=== PATIENT | female | born 1935 | race Caucasian/White ===

== ENCOUNTER 2016-03-29 01:52 | Inpatient (IN) | payer OTHER, MEDICARE ==
[~2016-03-29] VITALS: Ht 162.6 cm; Wt 68.0 kg
[~2016-03-29 01:52] MED LIST: ASPIR 8181 MG PO; ATORVASTATIN CA40 MG PO; CEFUROXIME AXE250 MG PO; LISINOPRIL10 MG PO; MAGNESIUM OXID400 MG PO; METOPROLOL TART50 MG PO; PREDNISONE 20MG20 MG PO; PROCHLORPERAZIN10 M1 PO; SPIRIVA 18 MCG18 MCG INH; SYMBICORT 160/41 PUF INH
--- NOTE | 2016-03-29 02:06 | NUR ---
PT BIBA FROM HOME. PER EMS PT HAS C/O HEADACHE, N/V/D FOR PAST 3 DAYS. 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
--- NOTE | 2016-03-29 02:07 | NUR ---
PT C/O DIZZINESS, WEAKNESS AND SLEEPING FOR 7 DAYS STRAIGHT. PT REPORTS NAUSEA SUBSIDING AFTER BEING MEDICATED. PT DENIES A HEADACHE AT THIS TIME. PT A/0 X4. RESP UNLABORED WITH BASELINE SOB. 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 PT DENIES CP, FEVER AND CHILLS.
--- NOTE | 2016-03-29 02:59 | ED AMS/SEIZURE/WEAK/DIZZY ---
History of Present Illness General Chief Complaint: Headache Stated Complaint: H/A Source: patient, family, old records, EMS Exam Limitations: no limitations Vital Signs & Intake/Output Vital Signs & Intake/Output Vital Signs Date Time Temp Pulse Resp B/P Pulse O2 O2 Flow FiO2 Ox Delivery Rate 03/29 0420 96.0 89 18 116/56 100 Nasal 4.0L Cannula 03/29 0201 96.5 93 20 183/99 95 Nasal 4.0L Cannula Allergies Coded Allergies: ciprofloxacin (From Cipro) (DIZZY 03/29/16) levofloxacin (SOB, TIGHTNESS IN CHEST 03/29/16) Reconcile Medications Aspirin (Ecotrin) 81 MG TABLET.DR 1 TAB PO DAILY HEART HEALTH (Reported) Atorvastatin Calcium (Lipitor) 40 MG TABLET 1 TAB PO QPM CHOLESTEROL ( Reported) Budesonide/Formoterol Fumara (Symbicort 160-4.5 Mcg Inhaler) 160 MCG/4.5 MCG PUF 2 PUF INH BID LUNGS Magnesium Oxide 400 MG TAB 1 TAB PO DAILY SUPPLEMENT Prednisone 20 MG TAB 1 TAB PO DAILY PNEUMONIA Prochlorperazine Maleate (Unknown Strength) TAB 10 MG PO Q6P PRN NAUSEA ( Reported) Tiotropium [place] (Spiriva) 18 MCG CAP.W.DEV 1 CAP INH DAILY EMPHYSEMA ( Reported) Core Measure Meds Pre-Hospital aspirin Triage Note: PT BIBA FROM HOME. PER EMS PT HAS C/O HEADACHE, N/V/D FOR PAST 3 DAYS. 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 Triage Nurses Notes Reviewed? yes Onset: yesterday Duration: day(s):, constant, continues in ED, getting worse Timing: recent history Injury Environment: home Severity: severe Modifying Factors: Improves With: rest. Worsens With: movement. LMP (ages 10-50): post menopausal : No Patient currently breastfeeds: No HPI: She is currently undergoing chemotherapy at [facility] for metastatic lung cancer. 1 week prior to admission patient was having focal seizures Vimpat dosage doubled and keppra increased. With the resolution of focal seizures. 1 day prior to admission patient reports increasing dizziness blurry vision weakness. There is no fever chills nausea vomiting diarrhea chest pain cough shortness of breath headache dysuria rash bleeding. Past History Travel History Traveled to [place] past 21 day No Medical History Any Pertinent Medical History? 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 No Review of Systems Review of Systems Constitutional: Reports: no symptoms. EENTM: Reports: see HPI, blurred vision. Respiratory: Reports: no symptoms. Cardiovascular: Reports: no symptoms. GI: Reports: no symptoms. Genitourinary: Reports: no symptoms. Musculoskeletal: Reports: no symptoms. Skin: Reports: no symptoms. Neurological/Psychological: Reports: see HPI. Hematologic/Endocrine: Reports: no symptoms. Immunologic/Allergic: Reports: no symptoms. All Other Systems: Reviewed and Negative Physical Exam Physical Exam General Appearance: well developed/nourished, alert, awake, anxious, severe distress, obese Head: atraumatic, normal appearance Eyes: Bilateral: normal appearance, PERRL, other (nystagmus). Ears, Nose, Throat: normal pharynx, normal ENT inspection Neck: normal inspection, supple, full range of motion, no midline tenderness Respiratory: chest non-tender, no respiratory distress, quiet respiration, lungs clear, decreased breath sounds Cardiovascular: regular rate/rhythm, normal peripheral pulses, norml femoral pulses equa Peripheral Pulses: 4+ carotid (R), 4+ carotid (L) Gastrointestinal: normal bowel sounds, soft, non-tender, no organomegaly Back: normal inspection, normal range of motion Extremities: normal range of motion, no ligament instability Neurologic/Psych: no motor/sensory deficits, awake, alert, oriented x 3 Reflexes: 2+: bicep (R), bicep (L). Skin: intact, normal color Lymphatic: no anterior cervical rich Core Measures ACS in differential dx? Yes CVA/TIA Diagnosis: No Severe Sepsis Present: No Septic Shock Present: No Progress Differential Diagnosis: benign positional vertigo, CVA/stroke, drug intoxication , electrolyte imbalance, hypoglycemia, hypoxia, seizure disorder, subarachnoid Hem. Plan of Care: Orders Procedure Date/time Status Regular Diet 03/29 B Active Patient Data 03/29 451 Active OXYGEN SETUP (GEN) 03/29 438 Active Saline Lock 03/29 438 Active Admit to inpatient 03/29 438 Active Vital Signs 03/29 438 Active Activity/Ambulation 03/29 438 Active Code Status 03/29 438 Active Intake & Output 03/29 356 Active EKG 03/29 355 Active TROPONIN LEVEL 03/29 227 Complete MAGNESIUM 03/29 227 Complete COMPREHENSIVE METABOLIC PANEL 03/29 227 Complete CBC WITHOUT DIFFERENTIAL 03/29 227 Complete Laboratory Tests 03/29/16 0315: Anion Gap 5, Estimated GFR > 60, BUN/Creatinine Ratio 58.0 H, Glucose 149 H, Calcium 8.3 L, Magnesium 1.2 L, Total Bilirubin 0.9, AST 45 H, ALT 37, Alkaline Phosphatase 96, Troponin I 0.17 *H, Total Protein 6.0 L, Albumin 3.1 L, Globulin 2.9, Albumin/Globulin Ratio 1.1, CBC w Diff NO MAN DIFF REQ, RBC 3.06 L, MCV 95.8, MCH 30.8, RDW 21.1 H, MPV 8.2, Gran % 85.1 H, Lymphocytes % 4.4 L, Monocytes % 10.3 H, Eosinophils % 0.1, Basophils % 0.1, Absolute Granulocytes 6.7 H, Absolute Lymphocytes 0.3 L, Absolute Monocytes 0.8 H, Absolute Eosinophils 0, Absolute Basophils 0, PUBS MCHC 32.2 L Diagnostic Imaging: Viewed by Me: CT Scan. Discussed w/RAD: CT Scan. Radiology Impression: Hypoattenuation in the high left frontal lobe at the location of the prior metastatic lesion. No focal enhancement on the current study. There is internal calcification. No new suspicious lesions are identified. Mild volume loss with small vessel ischemic change. Bilateral basal ganglia chronic infarcts. Initial ED EKG: normal axis, normal intervals, normal p-waves, normal QRS complex, normal sinus rhythm, no ST T wave changes Prior EKG: unchanged Rhythm Strip: normal sinus rhythm Departure Departure Time of Disposition: 514 Disposition: STILL A PATIENT Condition: Stable Clinical Impression Primary Impression: Elevated troponin Secondary Impressions: Medication side effects, Vertigo, Visual disturbance Referrals: KARL ESPANA MD (PCP/Family) Departure Forms: Customer Survey General Discharge Information Admission Note Spoke With: ARGENTINA MENDOZA,CHRISTINAJuan Documentation of Exam: Documentation of any treatments & extenuating circumstances including Concerns Regarding Discharge (functional status, medication knowledge or non-compliance, living conditions, etc.) that warrant an admission rather than observation: Cardiac monitoring serial lab exam radiology evaluation medication adjustment and change oncology evaluation continuing care discharge planning
[2016-03-29 03:26] LABS: ABSOLUTE BASOPHIL COUNT 0 /CUMM (0.0-0.2); ABSOLUTE EOSINOPHIL COUNT 0 /CUMM (0.0-0.7); ABSOLUTE GRANULOCYTE CT 6.7 /CUMM (1.4-6.5); ABSOLUTE LYMPH COUNT 0.3 /CUMM (1.2-3.4); ABSOLUTE MONOCYTE COUNT 0.8 /CUMM (0.10-0.60); BASOPHIL % 0.1 % (0.0-2.0); EOSINOPHIL % 0.1 % (0-5); GRANULOCYTE % 85.1 % (42.2-75.2); HEMATOCRIT 29.3 % (37-47); MEAN CORPUSCULAR HGB 30.8 PG (27.0-31.0); MEAN CORPUSCULAR HGB CONC 32.2 G/DL (33.0-37.0); MEAN CORPUSCULAR VOLUME 95.8 FL (81.0-99.0); MEAN PLATELET VOLUME 8.2 FL (7.4-10.4); PLATELET COUNT 126 /CUMM (130-400); RBC DISTRIBUTION WIDTH 21.1 % (11.5-14.5); RED BLOOD CELL CT 3.06 /CUMM (4.20-5.40)
--- NOTE | 2016-03-29 03:53 | NUR ---
22 GAUGE IN LEFT HAND ESTABLISHED FOR CT. PT DID NOT WANT TO USE PORTCATH IF IV WAS GOING TO BE INSERTED AT THIS TIME.
--- NOTE | 2016-03-29 03:56 | NUR ---
CRITICAL TEST RESULTS [id number] KASSIDY DENSON E 80 F TESTS AND RESULTS: TROP 0.17 Results received and read back by: TANISHA PRETTY Results received date and time: 03/29/16 0356 The following provider was notified of the results, and read the results back: JESUSITA Notified date and time: 03/29/16 at 0356
--- NOTE | 2016-03-29 03:58 | NUR ---
PT SLEEPING. EASILY AROUSED TO VERBAL STIMULATION. RESP UNLABORED. NO APPARENT DISTRESS
[2016-03-29 04:10] LABS: WHITE BLOOD CELL COUNT 7.9 /CUMM (4.8-10.8)
--- NOTE | 2016-03-29 04:35 | NUR ---
PT TO CT SCAN
--- NOTE | 2016-03-29 04:56 | CT SCAN REPORT ---
EXAMINATION: CT HEAD WITHOUT AND WITH CONTRAST CLINICAL INFORMATION: History of metastatic lung cancer with blurred vision. Dizziness. COMPARISON: MRI from 08/29/2015. TECHNIQUE: Contiguous axial imaging was performed from the skull base to vertex without and with intravenous contrast. DLP: 1201 mGy-cm. FINDINGS: There is no evidence of acute intracranial hemorrhage or territorial infarction. There is hypoattenuation at the high left frontal lobe with associated calcification. This is the location of the prior metastatic lesion. No significant enhancement seen on the current study. No suspicious enhancing lesions are identified. No abnormal mass effect or midline shift is seen. Torres to white matter differentiation is otherwise well preserved. No extra-axial fluid collections are identified. No hydrocephalus. Proportional prominence of the ventricles and sulcal spaces is consistent with mild volume loss. Patchy periventricular and deep white matter hypoattenuation is consistent with mild small vessel ischemic changes. Bilateral basal ganglia chronic infarcts. The osseous structures and soft tissues are normal. The mastoid air cells and visualized portions of the paranasal sinuses are well aerated. IMPRESSION: Hypoattenuation in the high left frontal lobe at the location of the prior metastatic lesion. No focal enhancement on the current study. There is internal calcification. No new suspicious lesions are identified. Mild volume loss with small vessel ischemic change. Bilateral basal ganglia chronic infarcts.
[2016-03-29] MEDS ORDERED: VIMPAT100 M1 PO (05:10)
[2016-03-29] MEDS ORDERED: LEVETIRACETAM1000 M1 PR (05:11)
[2016-03-29] MEDS ORDERED: DEXAMETHASONE0.5 M1 PO (05:13)
[2016-03-29] MEDS ORDERED: FUROSEMIDE20 M1 PO (05:15)
[2016-03-29] MEDS ORDERED: SPIRIVA18 MCG INH (05:16)
[2016-03-29] MEDS ORDERED: LEVOTHYROXINE50 MCG PO (05:19)
--- NOTE | 2016-03-29 05:20 | NUR ---
PATIENT ASSIGNED TO ROOM 180-30
--- NOTE | 2016-03-29 05:28 | History & Physical ---
WINNIE MENDOZA,[facility] 03/29/16 0527: General Information and HPI MD Statement: I have seen and personally examined KASSIDY DENSON and documented this H&P. The patient is a 80 year old F who presented with a patient stated chief complaint of weakness, double vision and persistent dizziness. Source of Information: patient, family, old records Exam Limitations: no limitations History of Present Illness: 80-year-old female who presented to the emergency department on 03/29/2016 complaining of weakness, double vision and persistent dizziness. The patient has currently been undergoing extensive chemotherapy due to lung cancer with questionable metastases to the brain. She has been going chemotherapy since 2014 and has session scheduled once a week. She is currently on carboplatin, Gemcitabine, Bevacizumab. Her last chemotherapy session was on 03/20/2016. Following this chemotherapy session the patient states that she has felt lethargic and states that she has slept for the entire week. She's also had reduced by mouth intake. In addition to the above patient states that she has been unable to have a bowel movement and has felt constipated and abdominal distension. She was visited by visiting nurse 2 days ago who gave her an enema and she had a small bowel movement. The patient also has a history of seizures. Her last seizure was on 03/21/2016. The patient follows up with neurologist Dr. Dasilva. Dr. Dasilva recently adjusted the patient's medications and has subsequently been increasing the patient's antiseizure medication dose (locosamide from 100mg BID to 100mg in am and 200 mg in PM). The patient lives at home with her daughter. She normally is very independent ambulation, walks and reports a good appetite. In addition to the above the patient denies any chest pain and/or chest discomfort. Additional information can be obtained from her daughter Socorro who is available on [phone] Allergies/Medications Allergies: Coded Allergies: ciprofloxacin (From Cipro) (DIZZY 03/29/16) levofloxacin (SOB, TIGHTNESS IN CHEST 03/29/16) Home Med list Atorvastatin Calcium (Lipitor) 40 MG TABLET 1 TAB PO QPM CHOLESTEROL ( Reported) Dexamethasone 0.5 MG TABLET 0.5 MG PO BID STEROID (Reported) 2 AM 1 PM Furosemide 20 MG TABLET 20 MG PO Wednesday WATER RETENTION (Reported) Lacosamide (Vimpat) 100 MG TABLET 100 MG PO BID SEIZURES (Reported) ONE IN MORNING AND TWO PM FOR ONE WEEK TILL 04/01/16 AND TWO IN THE AM AND TWO THE PM Levetiracetam 1,000 MG TABLET 1,[address] BID SEIZURES (Reported) Levothyroxine Sodium 50 MCG TABLET 100 MCG PO DAILY THYROID HEALTH (Reported) Tiotropium [place] (Spiriva) 18 MCG CAP.W.DEV 1 CAP INH DAILY EMPHYSEMA ( Reported) Compliance With Home Meds: GOOD Past History Travel History Traveled to [place] past 21 day No Medical History Neurological: NONE EENT: NONE Cardiovascular: aortic aneurysm, CAD, hypertension, hyperlipidemia Respiratory: emphysema, lung cancer Gastrointestinal: diverticulitis, lower GI bleed Hepatic: NONE Renal: NONE Musculoskeletal: NONE Psychiatric: NONE Endocrine: hypoparathyroidism Blood Disorders: NONE Cancer(s): lung cancer 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 Home Who Do You Live With? child, self Services at Home: Oxygen Primary Language: Taiwanese Smoking Status: Former Smoker ETOH Use: denies use Illicit Drug Use: denies illicit drug use Living Will? no Functional Ability ADLs Independent: dressing, eating, toileting, bathing. Ambulation: independent, cane, walker IADLs Independent: shopping, housework, finances, food prep, telephone, transportation , medication admin. Review of Systems Review of Systems Constitutional: Reports: malaise, weakness. Denies: chills, diaphoresis, fever. Cardiovascular: Reports: edema. Denies: chest pain, orthopena, palpitations. Respiratory: Denies: cough, hemoptysis, orthopnea, short of breath, sputum production, stridor. GI: Reports: constipation, distention, changes in stool. Denies: abdominal pain, bloating, diarrhea, bowel incontinence, melena, nausea, vomiting. Genitourinary: Denies: discharge, dysuria, frequency, hematuria. Musculoskeletal: Denies: back pain, gout, joint pain. Exam & Diagnostic Data Last 24 Hrs of Vital Signs/I&O Vital Signs Date Time Temp Pulse Resp B/P Pulse O2 O2 Flow FiO2 Ox Delivery Rate 03/29 0634 96.1 84 16 131/71 99 Nasal 4.0L Cannula 03/29 0420 96.0 89 18 116/56 100 Nasal 4.0L Cannula 03/29 0201 96.5 93 20 183/99 95 Nasal 4.0L Cannula Intake & Output 03/29 0800 03/29 0000 03/28 1600 Intake Total 0 Output Total Balance 0 Intake, Oral 0 Patient 72.121 kg Weight Physical Exam General Appearance Alert, Oriented X3, Cooperative Skin No Rashes HEENT PERRLA, Mucous membranes dry Neck Supple Lymphatic Cervical nl Cardiovascular Normal S1, Normal S2 Lungs Clear to Auscultation Abdomen Normal Bowel Sounds, Soft, No Tenderness Neurological Normal Gait, Normal Speech, Strength at 5/5 X4 Ext, Cranial Nerves 3-12 NL Last 24 Hrs of Labs/Pierre: Laboratory Tests 03/29/165: Anion Gap 5, Estimated GFR > 60, BUN/Creatinine Ratio 58.0 H, Glucose 149 H, Calcium 8.3 L, Magnesium 1.2 L, Total Bilirubin 0.9, AST 45 H, ALT 37, Alkaline Phosphatase 96, Troponin I 0.17 *H, Total Protein 6.0 L, Albumin 3.1 L, Globulin 2.9, Albumin/Globulin Ratio 1.1, CBC w Diff NO MAN DIFF REQ, RBC 3.06 L, MCV 95.8, MCH 30.8, RDW 21.1 H, MPV 8.2, Gran % 85.1 H, Lymphocytes % 4.4 L, Monocytes % 10.3 H, Eosinophils % 0.1, Basophils % 0.1, Absolute Granulocytes 6.7 H, Absolute Lymphocytes 0.3 L, Absolute Monocytes 0.8 H, Absolute Eosinophils 0, Absolute Basophils 0, PUBS MCHC 32.2 L Diagnostic Data EKG Results Sinus Rhythm rate 92 QTC 471 Other Results PATIENT: KASSIDY DENSON PRESENT AGE: 80 PATIENT ACCOUNT NO: [id number] : 34 LOCATION: [facility] ORDERING PHYSICIAN: IKE MC MD SERVICE DATE: 03/29/16 EXAM TYPE: CAT - CT HEAD W&WO IV CONTRAST EXAMINATION: CT HEAD WITHOUT AND WITH CONTRAST CLINICAL INFORMATION: History of metastatic lung cancer with blurred vision. Dizziness. COMPARISON: MRI from 08/29/2015. TECHNIQUE: Contiguous axial imaging was performed from the skull base to vertex without and with intravenous contrast. DLP: 1201 mGy-cm. FINDINGS: There is no evidence of acute intracranial hemorrhage or territorial infarction. There is hypoattenuation at the high left frontal lobe with associated calcification. This is the location of the prior metastatic lesion. No significant enhancement seen on the current study. No suspicious enhancing lesions are identified. No abnormal mass effect or midline shift is seen. Torres to white matter differentiation is otherwise well preserved. No extra-axial fluid collections are identified. No hydrocephalus. Proportional prominence of the ventricles and sulcal spaces is consistent with mild volume loss. Patchy periventricular and deep white matter hypoattenuation is consistent with mild small vessel ischemic changes. Bilateral basal ganglia chronic infarcts. The osseous structures and soft tissues are normal. The mastoid air cells and visualized portions of the paranasal sinuses are well aerated. IMPRESSION: Hypoattenuation in the high left frontal lobe at the location of the prior metastatic lesion. No focal enhancement on the current study. There is internal calcification. No new suspicious lesions are identified. Mild volume loss with small vessel ischemic change. Bilateral basal ganglia chronic infarcts. DICTATED BY: GERRI MCCAULEY MD DATE/TIME DICTATED:03/29/16446 KNITTER MECHANIC:JUDY DATE/TIME TRANSCRIBED:03/29/16446 CONFIDENTIAL, DO NOT COPY WITHOUT APPROPRIATE AUTHORIZATION. <Electronically signed in Other Vendor System> SIGNED BY: GERRI MCCAULEY MD 03/29 0456 Assessment/Plan Assessment: This is a 80-year-old female with past medical history of lung cancer on Vimpat who recently had a change of medications were presented to the emergency department feeling weak and having positive troponins in the setting of known EKG changes. Troponins elevations are likely related to demand ischemia. We'll admit to telemetry and continue monitoring. #Increase in troponin with no changes on EKG. Continue trending troponin over the next 6 and 12 hours respectively. Continue atorvastatin 80 mg by mouth daily Continue aspirin 81 mg by mouth daily Metoprolol 6.25 daily. Nitrates 0.4 mg once as needed for chest pain, monitor blood pressure to ensure hypotension does not occur. O2 supplementation in case of dysrhythmia and O2 saturation IV morphine 2 mg , if develop chest pain chest pain Consult cardiology cardiology consult in a.m. #Altered mental status Likely the result of overmedication and recent changes in medication. Consider outpatient follow-up with Dr. Dasilva to find optimal dose of medication. #History of metastatic lung cancer Continue dexamethasone 0.5 mg 2 tabs every day in the a.m. Dexamethasone 0.5 mg p.m. Hematology consult on 03/30/2016. Leg edema Continue Lasix 40 mg by mouth every other day Monitor ins and outs Daily weights History of COPD TRC neb [id number] as needed Continue Spiriva 1 puff daily If patient's status deteriorates consider chest x-ray Incentive Spirometry Diet: Heart Healthy CODE: DNR/DNI DVT Prophylaxis Lovenox 40 units subcutaneous As Ranked By This Provider Problem List: 1. Visual disturbance 2. Elevated troponin 3. Lung cancer 4. Chest wall pain 5. Medication side effects Core Measures/Miscellaneous Acute Coronary Syndrome ACS Diagnosis: No Cerebrovascular Accident CVA/TIA Diagnosis: No Congestive Heart Failure CHF Diagnosis: No Venous Thromboembolism VTE Risk Factors: Age > 40 VTE Prophylaxis Ordered Inpt: Pharm- Lovenox No Mech VTE prophylaxis d/t: No contraindications No VTE Pharm Prophylaxis d/t: No contraindications VTE Diagnosis: No VTE Type: NONE VTE Confirmed by (Test): NONE Severe Sepsis Severe Sepsis Present: No Septic Shock Septic Shock Present: No Miscellaneous Documentation Attending Case Discussed With: Tawana MENDOZA, [place] Primary Care Physician: KARL ESPANA MD Patient sees these Specialists Dr Dasilva Level of Patient Care: Telemetry TRUE BHATIA 03/29/16 0730: Resident Review Statement Resident Statement: examined this patient, discussed with creative intern, agreed with creative intern, discussed with family, reviewed EMR data (avail), discussed with nursing , discussed with case mgmt, reviewed images, amended to note Other Findings: 80-year-old female who presented to the emergency department complaining of weakness, double vision and persistent dizziness and was found to have elevated troponin without new EKG changes. Her PMH is significant for lung cancer with questionable metastases to the brain and staretd on Chmotherapy every other week. She is currently on carboplatin, Gemcitabine, Bevacizumab and decadrone (for brain Sellers). Her last chemotherapy session was on 03/20/2016. Following this chemotherapy session the patient states that she has felt lethargic and states that she has slept for the entire week. For the past few days, she lost her has had poor oral intake due to lack of appetite and has been constipated (usual for her after chemo). The patient also has a history of seizures. Her last seizure was on , and his neurologist Dr. Dasilva. recently, less than a week ago, increaseed her Vimpat from 100 mg BID to 100 mg am and 200 mg Pm. After initiating the increased dose of the Vimpat, and last patient started complaining of difficulty seeing objects and blurry vision. Patient denies any chest pain, palpitation, lightheadedness, episode of syncope loss of balance, nausea vomiting and diarrhea. The patient lives at home with her daughter. She normally is very independent ambulation, walks independently. Review of system: Patient complains of weakness and malaise has any chest pain, palpitations or discomfort, shortness of breath, nausea, vomiting, diarrhea. Physical exam: Alert and oriented 3 cooperative not in acute distress, head and neck: Pupils reactive to light equal symmetric mucous membranes are dry, cardiovascular normal S1-S2 no murmur, lungs are clear abdomen is soft normoactive; neurology: normal speech strength 5 out of 5 for extremity EKG: Normal sinus rate and rhythm no ST, T segment change CBC: WBC 7.9 with left shift no bandemia, Hgb 9.4 platelets 126 Magnesium 1.2 Assessment and plan #1 elevated troponin without associated EKG changes * Trending troponin and EKG at 8:30 AM and 2:30 PM * Continue atorvastatin 80 mg by mouth daily * Start the patient on aspirin 325 mg by mouth * Continue aspirin 81 mg by mouth daily * Start the patient on metoprolol 6.25 once * Nitrates 0.4 mg once as needed for chest pain * O2 supplementation in case of dysrhythmia and O2 saturation * IV morphine 2 mg , if develop chest pain chest pain * Consult cardiology in the a.m.- Chase MENDOZA #2 history of metastatic lung cancer * Continue dexamethasone 0.5 mg 2 tabs every day in the a.m. * Dexamethasone 0.5 mg p.m. #3 history of chronic leg edema * Continue Lasix 40 mg by mouth every other day #4 hypomagnesemia-repleted in the emergency room #5 history of COPD-stable * TRC neb [id number] as needed * Continue Spiriva 1 puff daily DNR DNI Lovenox 40 units subcutaneous
--- NOTE | 2016-03-29 05:36 | NUR ---
HOUSESTAFF AT BEDSIDE
--- NOTE | 2016-03-29 05:37 | NUR ---
PT SLEEPING. AROUSABLE TO VERBAL STIMULATION. RESP UNLBAORED. SKIN WARM AND DRY. NO APPARENT DISTRESS
--- NOTE | 2016-03-29 06:47 | NUR ---
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 FLOOR NOT READY FOR PT. RN TO CALL BACK WHEN ROOM READY.
[2016-03-29 08:53] VITALS: BP 124/82
--- NOTE | 2016-03-29 12:19 | Cons- Cardiology ---
General Information and HPI Consulting Request Date of Consult: 03/29/16 Requested By: ARGENTINA MENDOZA,LEMUEL History of Present Illness: Nirmala is an 80 year old female with history of hypertension, coronary artery disease, and remote tobacco abuse. She is s/p an inferior wall myocardial infarction which she experienced in August of 2003. At the time of her myocardial infarction, a chest x-ray was obtained which disclosed a right lung mass. This unfortunately turned out to be malignant. 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 She is s/p Cyberknife and multiple rounds of chemotherapy. At the present time, Nirmala feels weak dizzy and lethargic following chemotherapy. In the EF she was noted to have a mildly elevated troponin. Yesterday, this patient did note an aching in her chest that is now improved. She also had some associated vomiting. She has exertional shortness of breath but denies any shortness of breath this morning while at rest. There is no orthopnea and she denies palpitations. This patient has also had recent seizures and there is a suspicion of metastases to her brain. The patients last stress test was in December of 2009 and showed a normal EF of 83% with no evidence of ischemia. This test was ordered to evaluate for chest pain which I thought was a radiating abdominal pain from acute cholangitis. It should be noted that the patient is now s/p balloon sphincterotomy. The patients last echocardiogram confirmed a normal EF of 68% with mild left ventricular hypertrophy. 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 The mitral valve was mildly calcified with trace MR and there was trace TR. To Review [place] Coronary Anatomy: Her cardiac catheterization disclosed a normal left main and LAD. The left circumflex was a dominant vessel with a 90% hazy stenosis after the first marginal branch. The second obtuse marginal branch harbored a 40% ostial stenosis. The right coronary artery was small and nondominant. In consideration of this anatomy, the patient underwent dilatation and stenting of the 90% stenosis resulting in 0% residual stenosis with normal flow. Her EF was 60% with posterior wall akinesis. The 40% ostial stenosis of the second obtuse marginal remains. Allergies/Medications Allergies: Coded Allergies: ciprofloxacin (From Cipro) (DIZZY 03/29/16) levofloxacin (SOB, TIGHTNESS IN CHEST 03/29/16) Home Med List: Atorvastatin Calcium (Lipitor) 40 MG TABLET 1 TAB PO QPM CHOLESTEROL ( Reported) Dexamethasone 0.5 MG TABLET 0.5 MG PO BID STEROID (Reported) 2 AM 1 PM Furosemide 20 MG TABLET 20 MG PO Wednesday WATER RETENTION (Reported) Lacosamide (Vimpat) 100 MG TABLET 100 MG PO BID SEIZURES (Reported) ONE IN MORNING AND TWO PM FOR ONE WEEK TILL 04/01/16 AND TWO IN THE AM AND TWO THE PM Levetiracetam 1,000 MG TABLET 1,000 MG DE BID SEIZURES (Reported) Levothyroxine Sodium 50 MCG TABLET 100 MCG PO DAILY THYROID HEALTH (Reported) Tiotropium [place] (Spiriva) 18 MCG CAP.W.DEV 1 CAP INH DAILY EMPHYSEMA ( Reported) Review of Systems Review of Systems: Fatigue Past History Travel History Traveled to [place] past 21 day No Medical History Neurological: NONE EENT: NONE Cardiovascular: aortic aneurysm, CAD, hypertension, hyperlipidemia Respiratory: emphysema, lung cancer Gastrointestinal: diverticulitis, lower GI bleed Hepatic: NONE Renal: NONE Musculoskeletal: NONE Psychiatric: NONE Endocrine: hypoparathyroidism Blood Disorders: NONE Cancer(s): lung cancer (s/p wedge resection on R) 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 Surgical History Surgical History: AAA repair cardiac cath with stents, carotid endarterectomy, right wedge resection of lung for lung CA Family History Family History Reviewed? Coronary artery disease in both parents after age 60 Psychosocial History Where Do You Live? Home Who Do You Live With? child, self Services at Home: Oxygen Primary Language: Syriac Smoking Status: Former Smoker (quit at time of RI) ETOH Use: denies use Illicit Drug Use: denies illicit drug use Living Will? no Functional Ability ADLs Independent: dressing, eating, toileting, bathing. Ambulation: independent, cane, walker IADLs Independent: shopping, housework, finances, food prep, telephone, transportation , medication admin. Exam & Diagnostic Data Vital Signs and I&O Vital Signs Date Time Temp Pulse Resp B/P Pulse O2 O2 Flow FiO2 Ox Delivery Rate 03/29 0908 100 Nasal 4.0L Cannula 03/29 0853 97.4 87 20 124/82 95 Nasal 3.0L Cannula 03/29 0634 96.1 84 16 131/71 99 Nasal 4.0L Cannula 03/29 0420 96.0 89 18 116/56 100 Nasal 4.0L Cannula 03/29 0201 96.5 93 20 183/99 95 Nasal 4.0L Cannula Intake & Output 03/29 0000 03/28 1600 03/28 0000 Intake Total 0 Output Total Balance 0 Intake, Oral 0 Patient 159 lb Weight Physical Exam: General: WD/ WN female in NAD; lethargic but awake and oriented x 3 HEENT: NC/ AT, PERRL, EOMI Neck: no JVD, no carotid bruit Heart: RRR w/o murmur Lungs: no crackles or wheezing Abdomen: soft, NT, +ve bowel sounds Extemities: no edema Diagnostic Data EKG Results sinus rhythm with old inferior RI Assessment/Plan Assessment/Plan * This patient has chest discomfort along with elevated troponins that are consistent with a NSTEMI. She is known to have extensive coronary artery disease and has not followed up appropriately. Begin aspirin 234mg daily, Plavix 75mg daily after a 300mg bolus and IV heparin. Follow cardiac enzymes until they peak. Begin NTG paste 1" Q 6 hours. Continue Atorvastatin 40mg daily and metoprolol 25mg BID and lisinopril 10mg daily. * Check TSH and free T4 * Obtain an echocardiogram * Continue supplemental O2. Consult Acknowledgment - Thank you for your consult request.
--- NOTE | 2016-03-29 12:39 | Admission Certification ---
Admission Certification Certification Statement - As attending physician, I certify that at the time of - admission, based on clinical presentation, severity of - symptoms, need for further diagnostic testing and - therapeutic interventions, and risk of adverse outcomes - without in-hospital treatment, in my clinical assessment, - this patient requires an acute hospital stay for a minimum - of two nights or longer. I have also considered psychsocial - factors such as support system, advanced age, financial - issues, cognitive issues, and failed out-patient treatments, - past re-admission history, safety of patient, and lack of - compliance as applicable. Specific rationale supporting this admission is: Dizziness and positive troponin
--- NOTE | 2016-03-29 12:50 | PN- Att Addend ---
Attending Addendum Attending Brief Note Patient seen and examined. Plan of care discussed with the medical team and the patient. Available lab work and radiology test reports were reviewed. In summary this is 80-year-old female past history of for lung cancer currently on chemotherapy with 3 agents who also has history of left precentral been met. Her last MRI was in August at this hospital. This MRI has shown increase in size of the lesion. Patient also has been having seizures and she has been put on antiseizure medication. Her dose of Keppra and locasamide was apparently recently increased by her neurologist. Her last seizure was March 21. Patient presents to the hospital with increasing dizziness lethargy double vision. In emergency room her lab work has shown elevated troponin for unclear reasons without patient having any symptoms related to her chest. Patient denied any recent headache however she did have some nausea and dry heaves yesterday. Please seen the note for medication history, family history, social history and past medical history. Vital Signs Date Time Temp Pulse Resp B/P Pulse O2 O2 Flow FiO2 Ox Delivery Rate 03/29 0908 100 Nasal 4.0L Cannula 03/29 0853 97.4 87 20 124/82 95 Nasal 3.0L Cannula 03/29 0634 96.1 84 16 131/71 99 Nasal 4.0L Cannula 03/29 0420 96.0 89 18 116/56 100 Nasal 4.0L Cannula 03/29 0201 96.5 93 20 183/99 95 Nasal 4.0L Cannula Intake & Output 03/29 1600 03/29 0800 02 0000 Intake Total 0 Output Total Balance 0 Intake, Oral 0 Patient 159 lb Weight Exam: General: Patient awake but lethargic and oriented without any distress CVS: S1 plus S2 without any murmur or gallops Chest: Few scattered crepitation without any wheeze. There is no respiratory distress. 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 She did have mild dizziness while moving her head. Extremities: No edema; no clubbing or cyanosis noted Laboratory Tests 03/29 03/29 0900 0315 Chemistry Sodium (137 - 145 mmol/L) 138 Potassium (3.5 - 5.1 mmol/L) 4.0 Chloride (98 - 107 mmol/L) 100 Carbon Dioxide (22 - 30 mmol/L) 33 H Anion Gap (5 - 16) 5 BUN (7 - 17 mg/dL) 29 H Creatinine (0.5 - 1.0 mg/dL) 0.5 Estimated GFR (>60 ml/min) > 60 BUN/Creatinine Ratio (7 - 25 %) 58.0 H Glucose (65 - 99 mg/dL) 149 H Calcium (8.4 - 10.2 mg/dL) 8.3 L Magnesium (1.6 - 2.3 mg/dL) 1.2 L Total Bilirubin (0.2 - 1.3 mg/dL) 0.9 AST (14 - 36 U/L) 45 H ALT (9 - 52 U/L) 37 Alkaline Phosphatase (<127 U/L) 96 Troponin I (< 0.11 ng/ml) 0.47 *H 0.17 *H Total Protein (6.3 - 8.2 g/dL) 6.0 L Albumin (3.5 - 5.0 g/dL) 3.1 L Globulin (1.9 - 4.2 gm/dL) 2.9 Albumin/Globulin Ratio (1.1 - 2.2 %) 1.1 Hematology CBC w Diff NO MAN DIFF REQ WBC (4.8 - 10.8 /CUMM) 7.9 RBC (4.20 - 5.40 /CUMM) 3.06 L Hgb (12.0 - 16.0 G/DL) 9.4 L Hct (37 - 47 %) 29.3 L MCV (81.0 - 99.0 FL) 95.8 MCH (27.0 - 31.0 PG) 30.8 RDW (11.5 - 14.5 %) 21.1 H Plt Count (130 - 400 /CUMM) 126 L MPV (7.4 - 10.4 FL) 8.2 Gran % (42.2 - 75.2 %) 85.1 H Lymphocytes % (20.5 - 51.1 %) 4.4 L Monocytes % (1.7 - 9.3 %) 10.3 H Eosinophils % (0 - 5 %) 0.1 Basophils % (0.0 - 2.0 %) 0.1 Absolute Granulocytes (1.4 - 6.5 /CUMM) 6.7 H Absolute Lymphocytes (1.2 - 3.4 /CUMM) 0.3 L Absolute Monocytes (0.10 - 0.60 /CUMM) 0.8 H Absolute Eosinophils (0.0 - 0.7 /CUMM) 0 Absolute Basophils (0.0 - 0.2 /CUMM) 0 PUBS MCHC (33.0 - 37.0 G/DL) 32.[address] scan head shows Hypoattenuation in the high left frontal lobe at the location of the prior metastatic lesion. No focal enhancement on the current study. There is internal calcification. No new suspicious lesions are identified. Mild volume loss with small vessel ischemic change. Bilateral basal ganglia chronic infarcts. EKG does not show any acute ST segment elevation Assessment and problem list * Dizziness and diplopia- possibly due to increased dose of antiseizure medication. Other possibility is new or worsening metastasis in the brain * History of brain metastases from lung cancer * History lung cancer currently under chemotherapy * Elevated troponin AND nstemi * Anemia * Mild hypocalcemia * Hypomagnesemia Plan * Admit to telemetry; rule out PR protocol; check 3 sets of troponin * Cardiac consult note reviewed. Agree with starting aspirin and Plavix and heparin. Note the patient has history of for brain metastases that she is high risk for bleed. Therefore she would be closely monitored. * Neurology consult; patient likely will need MRI unless this was recently done as outpatient somewhere * Continue Keppra and Vimpat, we will ask neurology to adjust dose based on patient's symptoms * Continue Decadron
[2016-03-29 15:59] VITALS: BP 98/50
[2016-03-29 23:40] LABS: PTT > 120 SEC (25-37)
[2016-03-29 23:59] VITALS: BP 102/60
--- NOTE | 2016-03-30 02:11 | Event Note ---
Event Note Event Note: Patient had prolonged epistaxis overnight. Initial conservative measures of position changes and ice packs did not stop the bleeding. A nasal package/Rhino Rocket was placed in the patient's right nostril. Nurse was present throughout the procedure. IV heparin was held. PTT was below 120. Pharmacy was consulted for additional recommendations. Patient was continued to be monitored. She had no other issues overnight and following the placement of the Rhino Rocket was able to get some sleep. The resident was made aware. Signed out to the AM team.
[2016-03-30 02:40] LABS: ABSOLUTE BASOPHIL COUNT 0 /CUMM (0.0-0.2); ABSOLUTE EOSINOPHIL COUNT 0 /CUMM (0.0-0.7); ABSOLUTE GRANULOCYTE CT 5.6 /CUMM (1.4-6.5); ABSOLUTE LYMPH COUNT 0.7 /CUMM (1.2-3.4); ABSOLUTE MONOCYTE COUNT 0.8 /CUMM (0.10-0.60); BASOPHIL % 0 % (0.0-2.0); EOSINOPHIL % 0.5 % (0-5); GRANULOCYTE % 78.2 % (42.2-75.2); HEMATOCRIT 26.4 % (37-47); MEAN CORPUSCULAR HGB 30.8 PG (27.0-31.0); MEAN CORPUSCULAR HGB CONC 32.3 G/DL (33.0-37.0); MEAN CORPUSCULAR VOLUME 95.3 FL (81.0-99.0); MEAN PLATELET VOLUME 8.2 FL (7.4-10.4); PLATELET COUNT 101 /CUMM (130-400); RBC DISTRIBUTION WIDTH 20.6 % (11.5-14.5); RED BLOOD CELL CT 2.77 /CUMM (4.20-5.40); WHITE BLOOD CELL COUNT 7.2 /CUMM (4.8-10.8)
[2016-03-30 02:50] LABS: PTT 78 SEC (25-37)
--- NOTE | 2016-03-30 03:06 | NUR ---
NURSING NOTE: PT HAD BEEN COMPLAINING OF INTERMITTENT EPISTAXIS. UPON INITIAL ASSESSMENT BY DR. ZHOU PT WAS RESTING COMFORTABLY AND REFUSED ANY ADDITIONAL INTERVENTIONS. 0150 PT COMPLAINED AGAIN AND AGREED TO NASAL PACKING AND BLOOD WORK. NASAL PACKING INSERTED INTO RIGHT NARE BY DR. ZHOU W/O DIFFICULTY. PT TOLERATED PROCEDURE WELL. CBC/PTT DRAWN AND SENT TO LAB. HEPARIN GTT CURRENTLY ON HOLD PER MD, AWAITING REPEAT PTT. WILL CONTINUE TO MONITOR.
--- NOTE | 2016-03-30 07:28 | PN- Housestaff ---
PAUL MENDOZA,[facility] 03/30/16 0728: Subjective Follow-up For: Dizziness NSTEMI Tele-Events Since Last Visit: Sinus rhythm, first-degree heart block, heart rate 79-98 Subjective: Patient seen and examined this morning. She was lying comfortably in bed in no acute distress, overnight she was reported to have epistaxis for which a rapid Rhino has to be placed and then nostril, no episodes of repeat bleeding she will be seen by ENT specialist today. Otherwise no fever, other vitals within normal limits. No complaints of chest pain, dizziness, palpitation. Remains on IV heparin. Review of Systems Constitutional: Denies: chills, fever. Cardiovascular: Denies: chest pain, palpitations. Respiratory: Denies: cough, short of breath, sputum production. Gastrointestinal: Denies: abdominal pain, constipation, diarrhea, nausea, vomiting. Objective Last 24 Hrs of Vital Signs/I&O Vital Signs Date Time Temp Pulse Resp B/P Pulse O2 O2 Flow FiO2 Ox Delivery Rate 03/30 1411 94 Nasal 3.5L Cannula 03/30 0948 80 122/60 03/30 0948 80 122/60 03/30 0834 97.7 80 20 122/60 97 Nasal 3.5L Cannula 03/30 0000 Nasal 2.0L Cannula 03/29 2359 97.4 78 24 102/60 94 Nasal 2.0L Cannula 03/29 2213 78 102/60 /05 2200 Nasal 3.5L Cannula 03/29 1842 92 110/64 02/05 1841 92 110/64 /05 1559 97.9 92 16 98/50 97 Nasal 3.5L Cannula Intake & Output 03/30 1600 03/30 0800 03/30 0000 Intake Total 410 510 Output Total 400 550 Balance 10 -40 Intake, IV 60 60 Intake, Oral 350 450 Number 0 0 Bowel Movements Output, Urine 400 550 Physical Exam General Appearance: Alert, Oriented X3, Cooperative, No Acute Distress Cardiovascular: Regular Rate, Normal S1, Normal S2, No Murmurs Lungs: Clear to Auscultation, Normal Air Movement Abdomen: Normal Bowel Sounds, Soft, No Tenderness Extremities: No Clubbing, No Cyanosis, No Edema Current Medications: Current Medications Sig/Kong Start time Last Medication Dose Route Stop Time Status Admin Acetaminophen 650 MG Q6P PRN 03/29 0845 AC PO Aspirin 243 MG DAILY 03/30 1000 AC 03/30 PO 0947 Aspirin 325 MG DAILY 03/29 1323 DC 03/29 PO 1643 Atorvastatin Calcium 40 MG QPM 03/29 2200 AC 03/29 PO 1643 Cephalexin 500 MG BID 03/30 1000 AC 03/30 PO 1245 Clopidogrel Bisulfate 75 MG DAILY 03/30 1000 AC 03/30 PO 0948 Dexamethasone 0.5 MG BID 03/30 2200 AC PO Dexamethasone 0.5 MG QPM 03/29 2200 DC 03/29 PO 2212 Dexamethasone 1 MG QAM 03/29 1000 DC 03/30 PO 0948 Docusate Sodium 100 MG BID 03/29 1000 AC 03/30 PO 0948 Furosemide 20 MG 03/30 1000 AC 03/30 PO 0948 Heparin Sodium 25,000 UNIT Q24H 03/29 1330 AC 03/29 (Porcine) IV 1644 Sodium Chloride 500 ML Levetiracetam 1,000 MG BID 03/29 1000 AC 03/30 PO 1245 Levothyroxine Sodium 0.1 MG DAILY AC 03/29 0823 AC 03/30 PO 0948 Lisinopril 10 MG DAILY 03/29 1321 AC 03/30 PO 0948 Metoprolol Tartrate 25 MG BID 03/29 1321 AC 03/30 PO 0948 Morphine Sulfate 2 MG Q4P PRN 03/29 0845 AC IV Nitroglycerin 1 GM Q6 03/29 1320 AC 03/30 TOP 1245 Nitroglycerin 0.4 MG ONCE PRN 03/29 0815 AC SL Oxycodone/ 1 TAB Q6P PRN 03/29 0845 AC Acetaminophen PO Oxymetazoline HCl 2 SPRAY BID PRN 03/30 0215 AC PENELOPE Polyethylene Glycol 17 GM AT BEDTIME 03/29 2200 AC PO Tiotropium [place] 1 PUF DAILY 03/29 1000 AC 03/30 INH 0948 Last 24 Hrs of Lab/[place] Results Last 24 Hrs of Labs/Mics: Laboratory Tests 03/30/16 0700: Anion Gap 3 L, Estimated GFR > 60, BUN/Creatinine Ratio 32.0 H, Glucose 76, Calcium 8.0 L, Total Bilirubin 0.4, AST 31, ALT 29, Alkaline Phosphatase 88, Total Protein 4.8 L, Albumin 2.4 L, Globulin 2.4, Albumin/Globulin Ratio 1.0 L, APTT 59 H, CBC w Diff NO MAN DIFF REQ, RBC 2.51 L, MCV 96.0, MCH 31.4 H, RDW 20.6 H, MPV 8.6, Gran % 76.2 H, Lymphocytes % 12.3 L, Monocytes % 10.7 H , Eosinophils % 0.5, Basophils % 0.3, Absolute Granulocytes 4.9, Absolute Lymphocytes 0.8 L, Absolute Monocytes 0.7 H, Absolute Eosinophils 0, Absolute Basophils 0, PUBS MCHC 32.7 L 03/30/16 0210: APTT 78 H, CBC w Diff NO MAN DIFF REQ, RBC 2.77 L, MCV 95.3, MCH 30.8, RDW 20.6 H, MPV 8.2, Gran % 78.2 H, Lymphocytes % 10.3 L, Monocytes % 11.0 H, Eosinophils % 0.5, Basophils % 0 L, Absolute Granulocytes 5.6, Absolute Lymphocytes 0.7 L, Absolute Monocytes 0.8 H, Absolute Eosinophils 0, Absolute Basophils 0, PUBS MCHC 32.3 L 03/29/16 2230: APTT > 120 *H Assessment/Plan Assessment: This is a 80-year-old female with past medical history of lung cancer on Vimpat who recently had a change of medications were presented to the emergency department feeling weak and having positive troponins in the setting of known EKG changes. Troponins elevations are likely related to demand ischemia. We'll admit to telemetry and continue monitoring. #Rule out ACS Continuous cardiac monitoring for any arrhythmias Oxygen supplementation to keep oxygen saturation above 90 Troponin no EKG changes Patient was started on IV heparin, aspirin Plavix, atorvastatin, nitroglycerin paste, metoprolol 25 mg twice a day and lisinopril 10. Cardiology input, will follow-up with conditions. Echo pending #Altered mental status Patient was found to be having altered mental status upon admission, patient alert and oriented today, but in setting of lung cancer status post metastasis to brain currently on dexamethasone 0.5 mg twice a day, patient to get MRI today, will follow-up results. Oncology consult has been placed with follow-up recommendations. #Epistaxis : overnight patient had an episode of epistaxis, patient is on heparin, H&H dropped from 9.4-7.9 this morning, will get repeat H&H in evening today, if further drop and transfuse, platelets baseline 126 today 88, will follow-up repeat levels. ENT consult has been placed, recommended to start the patient on Keflex, Levaquin nasal packing in detail . #Leg edema Continue Lasix 40 mg by mouth every other day Monitor ins and outs daily weights History of COPD TRC neb Continue Spiriva 1 puff daily Diet: Heart Healthy CODE: DNR/DNI DVT Prophylaxis Lovenox 40 units subcutaneous Problem List: 1. Elevated troponin 2. Lung cancer Pain Ratin Pain Location: None Pain Goal: Remain pain free Pain Plan: Mild pain pathway Tomorrow's Labs & Rationales: CBC for H&H and platelets monitoring CLAUDIA MENDOZA,NATHALIA 03/30/16 1353: Attending MD Review Statement Attending Statement Attending MD Statement: examined this patient, discuss w/resident/PA/HELMET COVERER, agreed w/resident/PA/HELMET COVERER, reviewed EMR data (avail), discussed with nursing, discussed with case mgmt, amended to note Attending Assessment/Plan: Patient seen and examined. Resting comfortably and not in acute distress. No events overnight on telemetry. Noted to have first-degree AV block. She denies chest or palpitations. She reports mild shortness of breath due to the packing in the nostril. She reports coughing up small clots of blood on and off. On examination lungs are clear to auscultation bilaterally. Heart sounds are regular. She has no peripheral edema. She has packing in her right nostril. There is no active bleeding noted. ENT consultation appreciated. Problems: 1. Acute blood loss anemia 2. Epistaxis 3. Non-ST elevation NM. 4. Lung cancer with metastasis to the brain. 5. Thrombocytopenia: Likely secondary to chemotherapy. 6. Dizziness Plan: -Continue nasal packing and recommendations by ENT service. -Patient is currently on dual antiplatelet therapy and heparin infusion. Please follow-up with the cardiology service regarding this. She is at increased risk of bleeding due to her thrombocytopenia. She also has history of brain metastases that increases her risk of intracranial hemorrhage. -Repeat her H&H this afternoon. Transfuse to keep hematocrit greater than 24. -She did present with complaints of dizziness. Would recommend MRI of the brain to rule out new metastatic lesions. -Oncology consultation has been placed. Follow-up recommendations.
[2016-03-30 08:11] LABS: ABSOLUTE BASOPHIL COUNT 0 /CUMM (0.0-0.2); ABSOLUTE EOSINOPHIL COUNT 0 /CUMM (0.0-0.7); ABSOLUTE GRANULOCYTE CT 4.9 /CUMM (1.4-6.5); ABSOLUTE LYMPH COUNT 0.8 /CUMM (1.2-3.4); ABSOLUTE MONOCYTE COUNT 0.7 /CUMM (0.10-0.60); BASOPHIL % 0.3 % (0.0-2.0); EOSINOPHIL % 0.5 % (0-5); GRANULOCYTE % 76.2 % (42.2-75.2); HEMATOCRIT 24.1 % (37-47); MEAN CORPUSCULAR HGB 31.4 PG (27.0-31.0); MEAN CORPUSCULAR HGB CONC 32.7 G/DL (33.0-37.0); MEAN PLATELET VOLUME 8.6 FL (7.4-10.4); PLATELET COUNT 88 /CUMM (130-400); RBC DISTRIBUTION WIDTH 20.6 % (11.5-14.5); RED BLOOD CELL CT 2.51 /CUMM (4.20-5.40); WHITE BLOOD CELL COUNT 6.4 /CUMM (4.8-10.8)
[2016-03-30 08:19] LABS: PTT 59 SEC (25-37)
[2016-03-30 08:34] VITALS: BP 122/60
--- NOTE | 2016-03-30 12:48 | Cons- Ear,Nose&Throat ---
General Information and HPI Consulting Request Date of Consult: 03/30/16 Requested By: NATHALIA TAYLOR M.D Reason for Consult: EPISTAXIS Source of Information: patient Exam Limitations: no limitations History of Present Illness: PATIENT ADMITTED YESTERDAY FOR NESTEMI. SHE HAS HTN AND KNOWN CAD WELL SEIZURE DISORDER. WHILE IN HOSPITAL LAST NIGHT, DEVELOPED RIGHT EPISTAXIS. REQUIRED PLACEMENT OF ANTERIOR NASAL PACKING WITH GOOD CONTROL OF THE EPISTAXIS. SHE HAS NO COMPLAINTS NO FACIAL PRESSURE NO BLEEDING NO H/O MAJOR BLEEDS IN THE PAST SHE IS NOW ON HEPARIN, ASA, AND PLAVIX Allergies/Medications Allergies: Coded Allergies: ciprofloxacin (From Cipro) (DIZZY 03/29/16) levofloxacin (SOB, TIGHTNESS IN CHEST 03/29/16) Home Med List: Atorvastatin Calcium (Lipitor) 40 MG TABLET 1 TAB PO QPM CHOLESTEROL ( Reported) Dexamethasone 0.5 MG TABLET 0.5 MG PO BID STEROID (Reported) 2 AM 1 PM Furosemide 20 MG TABLET 20 MG PO Wednesday WATER RETENTION (Reported) Lacosamide (Vimpat) 100 MG TABLET 100 MG PO BID SEIZURES (Reported) ONE IN MORNING AND TWO PM FOR ONE WEEK TILL 04/01/16 AND TWO IN THE AM AND TWO THE PM Levetiracetam 1,000 MG TABLET 1,000 MG ID BID SEIZURES (Reported) Levothyroxine Sodium 50 MCG TABLET 100 MCG PO DAILY THYROID HEALTH (Reported) Tiotropium [place] (Spiriva) 18 MCG CAP.W.DEV 1 CAP INH DAILY EMPHYSEMA ( Reported) Past History Medical History Blood Transfusion Hx: No Neurological: NONE EENT: NONE Cardiovascular: aortic aneurysm, CAD, hypertension, hyperlipidemia Respiratory: emphysema, lung cancer Gastrointestinal: diverticulitis, lower GI bleed Hepatic: NONE Renal: NONE Musculoskeletal: NONE Psychiatric: NONE Endocrine: hypoparathyroidism Blood Disorders: NONE Cancer(s): lung cancer (s/p wedge resection on R) 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 Surgical History Pertinent Surgical History: AAA repair cardiac cath with stents carotid endarterectomy right wedge resection of lung for lung CA Psychosocial History Where Do You Live? Home Who Do You Live With? child, self Services at Home: Oxygen Primary Language: Arabic Smoking Status: Former Smoker (quit at time of [place]) ETOH Use: denies use Illicit Drug Use: denies illicit drug use Living Will? no Functional Ability ADLs Independent: dressing, eating, toileting, bathing. Ambulation: independent, cane, walker IADLs Independent: shopping, housework, finances, food prep, telephone, transportation , medication admin. Review of Systems Review of Systems: NONCONTRIBUTORY Exam & Diagnostic Data Vital Signs and I&O Vital Signs Date Time Temp Pulse Resp B/P Pulse O2 O2 Flow FiO2 Ox Delivery Rate 03/30 0948 80 122/60 03/30 0948 80 122/60 03/30 0834 97.7 80 20 122/60 97 Nasal 3.5L Cannula 03/30 0000 Nasal 2.0L Cannula 03/29 2359 97.4 78 24 102/60 94 Nasal 2.0L Cannula 03/29 2213 78 102/60 03/29 2200 Nasal 3.5L Cannula 03/29 1842 92 110/64 02 1841 92 110/64 03/29 1559 97.9 92 16 98/50 97 Nasal 3.5L Cannula Intake & Output 03/30 1600 03/30 0800 03/30 0000 / 1600 03/29 0800 03/29 0000 Intake Total 410 510 600 0 Output Total 400 550 Balance 10 -40 600 0 Intake, IV 60 60 Intake, Oral 350 450 600 0 Number 0 0 2 Bowel Movements Output, Urine 400 550 Patient 151 lb 159 lb Weight Physical Exam: PLEASANT FEMALE SITTING COMFORTABLY IN BED ANTERIOR PACKING IN PLACE ON RIGHT SIDE WITH BALLOON INFLATED. NO BLEEDING NO STRIDOR NO SINUS OR FACIAL PRESSURE EARS CLEAR NOSE WITH PACKING ON RIGHT SIDE OC/OP CLEAR NECK SUPPLE Assessment/Plan Assessment/Plan PATIENT WITH RIGHT EPISTAXIS CURRENTLY CONTROLLED WITH PACKING WITH BALLOON INFLATED. SHE SHOULD BE MAINTAINED ON KEFLEX IN HOSPITAL AND FOLLOWING DISCHARGE WHILE PACKING IS IN PLACE AVOID STRAIN OR TRAUMA SHE IS ON ANTICOAGULATION (HEPARIN, PLAVIX, ASA) IN SETTING OF BLEEDING, WOULD BE HELPFUL TO MINIMIZE ANTICOAGULATION MUCH MEDICALLY FEASIBLE. WOULD LEAVE PACKING UNTIL WEDNESDAY CAN SEE PATIENT IN [place] IN AM ([phone]), OR [place] IN PM ) WILL PLAN TO REMOVE PACKING ON WEDNESDAY IN THE OFFICE. THANKS TIFFANIE RAMIREZ MD, FACS Consult Acknowledgment - Thank you for your consult request. Attending MD Review Statement Attending Statement Attending MD Statement: examined this patient
--- NOTE | 2016-03-30 13:01 | Patient Discharge Instructions ---
Discharge Instructions General Discharge Information You were seen/treated for: - Altered mental status most likely due to recent vimpat dose change - Demand ischemia of the heart - Epistaxis - Simple partial seizure Special Instructions: - Please schedule a follow up appointment with Dr. Stephen Dasilva in 1-2 weeks , Vimpat held upon admission please talk to neurologist regarding when can it be restarted. Keppra dose also increased (now 1000 mg in am and 1500 mg in pm). Depakote added (1000 mg in am, and 1500 mg in PM). You need follow up blood work (LFT, valproic level , etc) - Please get repeat EEG - If has difficulty swallowing, please get swallow evaluation - Please schedule a follow up appointment with Dr. Stone in one week. - Please see PCP in 1 week. - Lasix held because of low blood pressure. Diet Continue normal diet: No Recommended Diet: Heart Healthy, Mechanical soft Activity Activity Self Limited: Yes Acute Coronary Syndrome Inclusion Criteria At DC or during hospital stay patient has or had the following: ACS DIAGNOSIS No Discharge Core Measures Meds if any: Prescribed or Continued at Discharge Meds if any: NOT Prescribed or Continued at Discharge Congestive Heart Failure Inclusion Criteria At DC or during hospital stay patient has or had the following: CHF DIAGNOSIS No Discharge Core Measures Meds if any: Prescribed or Continued at Discharge Meds if any: NOT Prescribed or Continued at Discharge Cerebrovascular accident Inclusion Criteria At DC or during hospital stay patient has or had the following: CVA/TIA Diagnosis No Discharge Core Measures Meds if any: Prescribed or Continued at Discharge Meds if any: NOT Prescribed or Continued at Discharge Venous thromboembolism Inclusion Criteria VTE Diagnosis No VTE Type NONE VTE Confirmed by (Test) NONE Discharge Core Measures - Per Current guidelines, there needs to be overlap - treatment for the first 5 days of Warfarin therapy. - If discharged on Warfarin prior to 5 days of - overlap therapy, the patient will need to be - assessed for post discharge needs including - *Post discharge parental anticoagulation - *Warfarin and/or parental anticoagulation education - *Follow up date to check INR post discharge At least 5 days overlap therapy as Inpatient No Meds if any: Prescribed or Continued at Discharge Note: Overlap Therapy is Warfarin and Anticoagulant Meds if any: NOT Prescribed or Continued at Discharge
[2016-03-30 16:10] VITALS: BP 120/68
--- NOTE | 2016-03-30 17:57 | MRI REPORT ---
EXAMINATION: MR BRAIN WITHOUT AND WITH CONTRAST CLINICAL INFORMATION: Lung carcinoma with brain metastases. COMPARISON: CT scan of the head 03/29/2016. Brain MRI 08/29/2015. TECHNIQUE: MRI of the brain was obtained using routine sequences before and after the intravenous administration of 7 mL of Gadavist. FINDINGS: There has been a substantial reduction in the intensity of enhancement associated with a central necrotic mass involving the left precentral gyrus and the extent of perilesional vasogenic edema has also substantially improved when compared to the most recent prior brain MRI from 08/29/2015. There is no new mass or enhancement. No intracranial mass effect or midline shift. Lateral and third ventricles are proportionate to the subarachnoid spaces. No hydrocephalus. There is a small focus of magnetic susceptibility artifact involving the left lateral thalamus and the subcortical white matter within the posterior left temporal lobe narrow margin of magnetic susceptibility artifact is visualized along the rim of the left frontal mass. Scattered nonspecific foci of T2 FLAIR signal hyperintensity are visualized within the periventricular white matter and marily that may either represent a manifestation of chronic small vessel ischemia or post treatment effects. There is no acute territorial infarct. Intracranial vascular flow voids are grossly maintained. Midline structures including the cervicomedullary junction are normal. Bone marrow signal intensity is normal there is no mastoid or middle ear effusion. Mild paranasal sinus disease primarily affecting the ethmoid air cells and sphenoid sinus. Globes and orbits are symmetric. IMPRESSION: Findings consistent with response to treatment. Specifically there has been substantial reduction of enhancement and there has been a reduction of perilesional vasogenic edema associated with the left frontal lobe metastasis. There is no new mass or enhancement.
--- NOTE | 2016-03-30 19:24 | PN- Cardiology ---
Subjective Subjective: * No chest discomfort. Mild shortness of breath. * Mg 1.2 * low H/H after episode of epistaxis * troponins are trending down Objective Vital Signs and I&Os Vital Signs Date Time Temp Pulse Resp B/P Pulse O2 O2 Flow FiO2 Ox Delivery Rate 03/30 1610 97.1 80 20 120/68 94 / 1411 94 Nasal 3.5L Cannula 03/30 0948 80 122/60 03/30 0948 80 122/60 03/30 0834 97.7 80 20 122/60 97 Nasal 3.5L Cannula 03/30 0800 95 Nasal 3.0L Cannula 03/30 0000 Nasal 2.0L Cannula 03/29 2359 97.4 78 24 102/60 94 Nasal 2.0L Cannula 03/29 2213 78 102/60 03/29 2200 Nasal 3.5L Cannula Intake & Output 03/30 1600 03/30 0800 03/30 0000 03/29 1600 03/29 0800 03/29 0000 Intake Total 750 410 510 600 0 Output Total 725 400 550 Balance 25 10 -40 600 0 Intake, IV 75 60 60 Intake, Oral 675 350 450 600 0 Number 1 0 0 2 Bowel Movements Output, Urine 725 400 550 Patient 151 lb 159 lb Weight Physical Exam: General: WD/ WN female in NAD; lethargic but awake and oriented x 3 Neck: no JVD, no carotid bruit Heart: RRR w/o murmur Lungs: no crackles or wheezing Extemities: no edema Assessment/Plan Assessment/Plan * This patient will be treated medically for her NSTEMI. She is currently pain free despite having a low H/H. Continue current cardiac medications. * Obtain an echocardiogram. Continue telemetry? Yes
[2016-03-30 21:04] LABS: ABSOLUTE BASOPHIL COUNT 0 /CUMM (0.0-0.2); ABSOLUTE EOSINOPHIL COUNT 0 /CUMM (0.0-0.7); ABSOLUTE GRANULOCYTE CT 5.6 /CUMM (1.4-6.5); ABSOLUTE LYMPH COUNT 0.9 /CUMM (1.2-3.4); ABSOLUTE MONOCYTE COUNT 0.6 /CUMM (0.10-0.60); BASOPHIL % 0.4 % (0.0-2.0); EOSINOPHIL % 0.2 % (0-5); GRANULOCYTE % 78.2 % (42.2-75.2); HEMATOCRIT 24.7 % (37-47); MEAN CORPUSCULAR HGB 31.3 PG (27.0-31.0); MEAN CORPUSCULAR HGB CONC 32.5 G/DL (33.0-37.0); MEAN CORPUSCULAR VOLUME 96.5 FL (81.0-99.0); MEAN PLATELET VOLUME 8.9 FL (7.4-10.4); RED BLOOD CELL CT 2.56 /CUMM (4.20-5.40); WHITE BLOOD CELL COUNT 7.1 /CUMM (4.8-10.8)
[2016-03-30 21:10] LABS: PLATELET COUNT 83 /CUMM (130-400)
[2016-03-30 21:15] LABS: PTT 35 SEC (25-37)
[2016-03-31 00:13] VITALS: BP 120/68
[2016-03-31 00:30] VITALS: BP 110/60
[2016-03-31 01:58] LABS: PTT 75 SEC (25-37)
[2016-03-31 06:37] LABS: ABSOLUTE BASOPHIL COUNT 0 /CUMM (0.0-0.2); ABSOLUTE EOSINOPHIL COUNT 0 /CUMM (0.0-0.7); ABSOLUTE GRANULOCYTE CT 5.7 /CUMM (1.4-6.5); ABSOLUTE LYMPH COUNT 1.4 /CUMM (1.2-3.4); ABSOLUTE MONOCYTE COUNT 0.8 /CUMM (0.10-0.60); BASOPHIL % 0.2 % (0.0-2.0); EOSINOPHIL % 0.2 % (0-5); GRANULOCYTE % 71.5 % (42.2-75.2); HEMATOCRIT 25.1 % (37-47); MEAN CORPUSCULAR HGB 31.2 PG (27.0-31.0); MEAN CORPUSCULAR HGB CONC 32.2 G/DL (33.0-37.0); MEAN CORPUSCULAR VOLUME 96.9 FL (81.0-99.0); MEAN PLATELET VOLUME 8.3 FL (7.4-10.4); PLATELET COUNT 78 /CUMM (130-400); RBC DISTRIBUTION WIDTH 21.5 % (11.5-14.5); RED BLOOD CELL CT 2.59 /CUMM (4.20-5.40)
[2016-03-31 06:53] LABS: WHITE BLOOD CELL COUNT 7.6 /CUMM (4.8-10.8)
[2016-03-31 06:58] LABS: PTT > 120 SEC (25-37)
--- NOTE | 2016-03-31 07:23 | PN- Housestaff ---
PAUL MENDOZA,[facility] 03/31/16 0723: Subjective Follow-up For: Dizziness Chest pain/NSTEMI Tele-Events Since Last Visit: A sinus rhythm, first-degree heart block, heart rate between 80-95, Subjective: Patient seen and examined this morning. She was lying comfortably in bed in no acute distress. Overnight her nasal packing came out which had to be replaced. Patient afebrile, H&H low but stable, remains on IV heparin. No other complaints. Review of Systems Constitutional: Denies: chills, fever. Cardiovascular: Denies: chest pain, palpitations. Respiratory: Denies: cough, short of breath, sputum production. Gastrointestinal: Denies: abdominal pain, diarrhea, distention, nausea, vomiting. Genitourinary: Denies: dysuria, frequency. Objective Last 24 Hrs of Vital Signs/I&O Vital Signs Date Time Temp Pulse Resp B/P Pulse O2 O2 Flow FiO2 Ox Delivery Rate 03/31 08 Nasal 4.0L Cannula 03/31 0730 98.4 93 19 110/70 96 Nasal 4.0L Cannula 03/31 0030 98.2 83 20 110/60 97 Nasal 3.5L Cannula 03/31 0013 120/68 03/31 0000 94 Nasal 3.0L Cannula 03/30 2102 110 110/60 03/30 2003 91 Nasal 4.0L Cannula 03/30 1610 97.1 80 20 120/68 94 03/30 1600 94 Nasal 3.0L Cannula 03/30 1411 94 Nasal 3.5L Cannula Intake & Output 03/31 1600 03/31 0800 03/31 0000 Intake Total 272 290 Output Total 200 300 Balance 72 -10 Intake, IV 152 40 Intake, Oral 120 250 Output, Urine 200 300 Physical Exam General Appearance: Alert, Oriented X3, Cooperative, No Acute Distress Cardiovascular: Regular Rate, Normal S1, Normal S2, No Murmurs Lungs: Clear to Auscultation, Normal Air Movement Abdomen: Normal Bowel Sounds, Soft, No Tenderness Extremities: No Clubbing, No Cyanosis Current Medications: Current Medications Sig/Kong Start time Last Medication Dose Route Stop Time Status Admin Acetaminophen 650 MG Q6P PRN 03/29 0845 AC PO Aspirin 243 MG DAILY 03/30 1000 AC 03/30 PO 0947 Atorvastatin Calcium 40 MG QPM 03/29 220 AC 03/30 PO 210 Cephalexin 500 MG BID 03/30 1000 AC 03/30 PO 2105 Clopidogrel Bisulfate 75 MG DAILY 03/30 1000 AC 03/30 PO 0948 Dexamethasone 0.5 MG BID 03/30 2200 AC 03/30 PO 210 Dexamethasone 0.5 MG QPM 03/29 2200 DC 03/29 PO 2212 Dexamethasone 1 MG QAM 03/29 1000 DC 03/30 PO 0948 Docusate Sodium 100 MG BID 03/29 1000 AC 03/30 PO 210 Furosemide 20 MG 03/30 1000 AC 03/30 PO 0948 Heparin Sodium 100 UNIT ONCE PRN 03/31 0700 AC (Porcine) IV Heparin Sodium 25,000 UNIT Q24H 03/29 1330 AC 03/31 (Porcine) IV 1029 Sodium Chloride 500 ML Levetiracetam 1,000 MG BID 03/29 1000 AC 03/30 PO 2104 Levothyroxine Sodium 0.1 MG DAILY AC 03/29 0823 AC 03/31 PO 0646 Lidocaine 1 ISIS DAILY PRN 03/30 2100 AC TOP Lisinopril 10 MG DAILY 03/29 1321 AC 03/30 PO 0948 Magnesium Sulfate 1 GM ONCE ONE 03/31 0315 DC 03/31 Dextrose/Water 100 ML IV 03/31 0714 0321 Metoprolol Tartrate 25 MG BID 03/29 1321 AC 03/30 PO 2102 Morphine Sulfate 2 MG Q4P PRN 03/29 0845 AC IV Nitroglycerin 1 GM Q6 03/29 1320 AC 03/31 TOP 0646 Nitroglycerin 0.4 MG ONCE PRN 03/29 0815 AC SL Oxycodone/ 1 TAB Q6P PRN 03/29 0845 AC Acetaminophen PO Oxymetazoline HCl 2 SPRAY BID PRN 03/30 0215 AC PENELOPE Polyethylene Glycol 17 GM AT BEDTIME 03/29 2200 AC PO Scopolamine HBr 1 PAT ONE ONE 03/30 194 DC 03/30 TOP 03/30 194 210 Tiotropium [place] 1 PUF DAILY 03/29 1000 AC 03/30 INH 0948 Last 24 Hrs of Lab/[place] Results Last 24 Hrs of Labs/Mics: Laboratory Tests 03/31/16 0615: APTT > 120 *H, CBC w Diff MAN DIFF ORDERED, RBC 2.59 L, MCV 96.9, MCH 31.2 H, RDW 21.5 H, MPV 8.3, Gran % 71.5, Lymphocytes % 17.7 L, Monocytes % 10.4 H, Eosinophils % 0.2, Basophils % 0.2, Absolute Granulocytes 5.7, Segmented Neutrophils 79 H, Absolute Lymphocytes 1.4, Lymphocytes 16 L, Monocytes 5, Absolute Monocytes 0.8 H, Absolute Eosinophils 0, Absolute Basophils 0, Nucleated RBCs 5 H, Platelet Estimate DECREASED, Polychromasia 1+, Hypochromic- Microcytic 1+, Poikilocytosis 1+, Ovalocytes 1+, Elliptocytes FEW, PUBS MCHC 32.2 L, Fld Total RBCs Counted 100 03/31/16 0115: APTT 75 H 03/30/161944: APTT 35, CBC w Diff NO MAN DIFF REQ, RBC 2.56 L, MCV 96.5, MCH 31.3 H, RDW 21.0 H, MPV 8.9, Gran % 78.2 H, Lymphocytes % 12.8 L, Monocytes % 8.4, Eosinophils % 0.2, Basophils % 0.4, Absolute Granulocytes 5.6, Absolute Lymphocytes 0.9 L, Absolute Monocytes 0.6, Absolute Eosinophils 0, Absolute Basophils 0, PUBS MCHC 32.5 L Assessment/Plan Assessment: This is a 80-year-old female with past medical history of lung cancer on Vimpat who recently had a change of medications were presented to the emergency department feeling weak and having positive troponins in the setting of known EKG changes. Troponins elevations are likely related to demand ischemia. We'll admit to telemetry and continue monitoring. #Rule out ACS Continuous cardiac monitoring for any arrhythmias Oxygen supplementation to keep oxygen saturation above 90 Troponin no EKG changes Patient was started on IV heparin, aspirin Plavix, atorvastatin, nitroglycerin paste, metoprolol 25 mg twice a day and lisinopril 10. Cardiology input, will follow-up with recommendation Echo pending #Altered mental status Patient was found to be having altered mental status upon admission, patient alert and oriented today, but in setting of lung cancer status post metastasis to brain currently on dexamethasone 0.5 mg twice a day, patient to get MRI today, will follow-up results. Oncology consult has been placed with follow-up recommendations. #Epistaxis : overnight patient had an episode of epistaxis, patient is on heparin, H&H dropped from 9.4-7.9 this morning, will get repeat H&H in evening today, if further drop and transfuse, platelets baseline 126 today 88, will follow-up repeat levels. ENT consult has been placed, recommended to start the patient on Keflex, leave nasal packing in detail till .Overnight patient had a nasal packing came out, was replaced, ENT notified. #Leg edema Continue Lasix 40 mg by mouth every other day Monitor ins and outs daily weights History of COPD TRC neb Continue Spiriva 1 puff daily Diet: Heart Healthy CODE: DNR/DNI DVT Prophylaxis Lovenox 40 units subcutaneous Problem List: 1. Vertigo 2. Elevated troponin Pain Ratin Pain Location: none Pain Goal: Remain pain free Pain Plan: Mild pain pathway Tomorrow's Labs & Rationales: CBC for H&H monitoring and platelet monitoring NATHALIA TAYLOR MD 03/31/16 1049: Attending MD Review Statement Attending Statement Attending MD Statement: examined this patient, discuss w/resident/PA/SOLUTION ADVISOR, agreed w/resident/PA/SOLUTION ADVISOR, reviewed EMR data (avail), discussed with nursing, discussed with case mgmt, amended to note Attending Assessment/Plan: Patient seen and examined. Nasal packing fell out overnight and needed to be reinserted. She continues to bleed actively. Fortunately her hemoglobin levels are stable and she has not required blood transfusion so far. Overnight on telemetry she had PVCs with occasional couplets. She denies chest pain or palpitations. She is hemodynamically stable. He is very anxious about her epistaxis wishes for this to resolve completely prior to discharge. She is to be evaluated by the ENT service he came on . She has no more complaints of dizziness. MRI fortunately has shown improvement of metastatic lesions with no new lesions. Echocardiogram shows impaired LV relaxation, normal systolic function. Recommendations: -Follow-up with the cardiology service regarding discontinuation of IV heparin as patient has been on anticoagulation for about 48 hours. -Cardiology service is currently recommending conservative management. No plans at this moment for cardiac catheterization. -Continue to monitor hemoglobin level and transfuse to keep hematocrit greater than 24. -Platelet count continues to trend down slowly. Continue to monitor daily. Her thrombocytopenia was present on admission and dropping levels were noted on the day of initiation of heparin therapy. -Prior to admission she was on keppra and vimpat. Her Vimpat had recently been increased by Dr Dasilva and she complained of blurry vision afterwards. Vimpat is currently on held from admission due to this. Awaiting follow up from the neurology service regarding AED. Continue heather for now.
[2016-03-31 07:30] VITALS: BP 110/70
--- NOTE | 2016-03-31 08:00 | ECHOCARDIOGRAM REPORT ---
KASSIDY DENSON Age: 80 : 1935 Gender: F Exam Date: 03/30/2016 19:56 Exam Location: [place] Ht (in): 64 Wt (lb): 159 BSA: 1.82 BP: 102 / 60 Ordering Physician: JULIEN MILLER MD Referring Physician: Jeferson Stone MD, PhD Technologist: Tammy Howard [facility] Room Number: 180-01 Indications: CHEST PAIN Rhythm: Sinus Technical Quality: technically limited FINDINGS Left Ventricle Normal left ventricular size with mild left ventricular hypertrophy. Normal systolic function with no obvious regional wall motion abnormalities. Diastolic filling pattern is consistent with impaired LV relaxation. The ejection fraction is visually estimated at 60%. Right Ventricle The right ventricle is normal in size and function. Right Atrium The right atrium is normal in size. Left Atrium The left atrium is normal in size. The interatrial septum is intact. Mitral Valve The mitral valve demonstrates mild annular calcification with normal function. There is no mitral regurgitation. Aortic Valve Structurally normal aortic valve without significant sclerosis or stenosis. There is no aortic regurgitation. Tricuspid Valve The tricuspid valve is normal in structure and function. There is trace tricuspid regurgitation. Pulmonary artery systolic pressure is normal. Pulmonic Valve Structurally normal pulmonic valve. There is no pulmonic regurgitation. Pericardium Normal pericardium without effusion. No pleural effusion. Great Vessels Normal aortic root dimension. The aortic arch and great vessels are well seen and are normal. CONCLUSIONS 1. Normal EF of 60% with impaired LV relaxation. 2. Mild left ventricular hypertrophy. 3. Trace tricuspid regurgitation. Jeferson Stone M.D. (Electronically Signed) Final Date: 31 March 2016 07:58 MEASUREMENTS (Male / Female) Normal Values 2D ECHO LV Diastolic Diameter PLAX 3.4 cm 4.2 - 5.9 / 3.9 - 5.3 cm LV Systolic Diameter PLAX 2.2 cm 2.1 - 4.0 cm LV Fractional Shortening PLAX 35.3 % 25 - 46 % LV Ejection Fraction 2D Teich 65.8 % IVS Diastolic Thickness 1.3 cm LVPW Diastolic Thickness 1.3 cm LV Relative Wall Thickness 0.8 RV Internal Dim ED PLAX 2.7 cm 1.9 - 3.8 cm LVOT Diameter 1.9 cm Aortic Root Diameter 3.2 cm LA Systolic Diameter LX 3.9 cm 3.0 - 4.0 / 2.7 - 3.8 cm LA Volume 26.0 cm 18 - 58 / 22 - 52 cm Ascending Aorta Diameter 3.7 cm DOPPLER AV Peak Velocity 172.0 cm/s AV Peak Gradient 11.8 mmHg AV Mean Velocity 123.0 cm/s AV Mean Gradient 7.0 mmHg AV Velocity Time Integral 26.1 cm LVOT Peak Velocity 107.0 cm/s LVOT Peak Gradient 4.6 mmHg LVOT Mean Velocity 76.0 cm/s LVOT Mean Gradient 3.0 mmHg LVOT Velocity Time Integral 19.8 cm LVOT Stroke Volume 56.1 cm AV Area Cont Eq vti 2.2 cm AV Area Cont Eq pk 1.8 cm MV Peak Velocity 148.0 cm/s MV Peak Gradient 8.8 mmHg MV Mean Velocity 91.4 cm/s MV Mean Gradient 4.0 mmHg Mitral A Point Velocity 117.0 cm/s TR Peak Velocity 223.0 cm/s TR Peak Gradient 19.9 mmHg Right Atrial Pressure 5.0 mmHg Pulmonary Artery Systolic Pressu 24.9 mmHg Right Ventricular Systolic Press 24.9 mmHg PV Peak Velocity 68.6 cm/s PV Peak Gradient 1.9 mmHg PV Mean Velocity 52.5 cm/s PV Mean Gradient 1.0 mmHg PV Velocity Time Integral 12.5 cm LV E' Lateral Velocity 8.1 cm/s LV E' Septal Velocity 7.0 cm/s
--- NOTE | 2016-03-31 11:20 | NUR ---
PER TELLER SUPERVISOR DR MILLER #[id number] WHO SPOKE WITH SMART ENERGY SPECIALIST, DISCONTINUE IV HEPARIN DRIP; AND MAY GIVE PLAVIX AND ASPIRIN IN ONE HOUR AFTER STOPPING IV HEPARIN.
[2016-03-31 13:05] VITALS: BP 138/72
--- NOTE | 2016-03-31 13:41 | PN- Cardiology ---
Subjective Subjective: * No complaints. Nasal packing came out yesterday and there is minor epistaxis. * Sinus rhythm * Magnesium level repleted Objective Vital Signs and I&Os Vital Signs Date Time Temp Pulse Resp B/P Pulse O2 O2 Flow FiO2 Ox Delivery Rate 03/31 1305 81 138/72 03/31 1118 99 Nasal 3.0L Cannula 03/31 1032 95 142/76 03/31 0800 Nasal 4.0L Cannula 03/31 0730 98.4 93 19 110/70 96 Nasal 4.0L Cannula 03/31 0030 98.2 83 20 110/60 97 Nasal 3.5L Cannula 03/31 0013 120/68 03/31 0000 94 Nasal 3.0L Cannula 03/30 2102 110 110/60 03/30 2003 91 Nasal 4.0L Cannula 03/30 1610 97.1 80 20 120/68 94 03/30 1600 94 Nasal 3.0L Cannula 03/30 1411 94 Nasal 3.5L Cannula Intake & Output 03/31 1600 03/31 0800 03/31 0000 03/30 1600 03/30 0800 03/30 0000 Intake Total 442 272 290 750 410 510 Output Total 450 200 300 725 400 550 Balance -8 72 -10 25 10 -40 Intake, IV 82 152 40 75 60 60 Intake, Oral 360 120 250 675 350 450 Number 1 0 0 Bowel Movements Output, Urine 450 200 300 725 400 550 Physical Exam: General: WD/ WN female in NAD; lethargic but awake and oriented x 3 Neck: no JVD, no carotid bruit Heart: RRR w/o murmur Lungs: no crackles or wheezing Extemities: no edema Assessment/Plan Assessment/Plan * This patient will be treated medically for her NSTEMI. She is currently pain. In consideration of her epistaxis and anemia we will avoid unecessary anticoagulation. It is reasonable to stop IV heparin at this time. Otherwise, continue current cardiac medications. Continue telemetry? Yes
[2016-03-31 16:12] VITALS: BP 106/62
[2016-03-31 18:30] VITALS: BP 112/62
[2016-04-01 00:42] VITALS: BP 152/60
--- NOTE | 2016-04-01 07:37 | PN- Housestaff ---
PAUL MENDOZA,[facility] 04/01/16 0737: Subjective Follow-up For: Dizziness Chest pain/NSTEMI Tele-Events Since Last Visit: no acute tele events Subjective: Patient seen and examine this morning. She was lying in bed in no acute distress. IV heparin was stopped yesterday , no repeat episodes of epistaxis, afebrile, other vitals wnl. Review of Systems Constitutional: Denies: chills, fever. Cardiovascular: Denies: chest pain, palpitations. Respiratory: Denies: cough, short of breath, sputum production. Gastrointestinal: Denies: abdominal pain, constipation, diarrhea, nausea, vomiting. Genitourinary: Denies: dysuria, frequency. Objective Last 24 Hrs of Vital Signs/I&O Vital Signs Date Time Temp Pulse Resp B/P Pulse O2 O2 Flow FiO2 Ox Delivery Rate 04/01 1626 97.2 90 18 118/80 91 04/01 1600 95 Nasal 2.0L Cannula 04/01 1143 Nasal 2.0L Cannula 04/01 1107 Nasal 2.0L Cannula 04/01 1056 Nasal 2.0L Cannula 04/01 1044 Nasal 2.0L Cannula 04/01 1036 128/68 04/01 1036 128/68 04/01 0807 97 Nasal 2.0L Cannula 04/01 0800 Nasal 2.0L Cannula 04/01 0800 97.8 90 20 128/68 97 Nasal 2.0L Cannula 04/01 0042 97.9 82 20 152/60 94 Nasal 2.0L Cannula 04/01 0000 Nasal 2.0L Cannula 03/31 2153 96 148/64 Intake & Output 04/01 1600 08 0800 04/01 0000 Intake Total 720 60 560 Output Total 600 300 200 Balance 120 -240 360 Intake, IV 10 Intake, Oral 720 50 560 Number 0 Bowel Movements Output, Urine 600 300 200 Patient 68.039 kg Weight Physical Exam General Appearance: Alert, Oriented X3, Cooperative, No Acute Distress Cardiovascular: Regular Rate, Normal S1, Normal S2, No Murmurs Lungs: Clear to Auscultation, Normal Air Movement Abdomen: Normal Bowel Sounds, Soft, No Tenderness, No Hepatospenomegaly Extremities: No Clubbing, No Cyanosis, No Edema Current Medications: Current Medications Sig/Kong Start time Last Medication Dose Route Stop Time Status Admin Acetaminophen 650 MG Q6P PRN 03/29 0845 AC PO Aspirin 243 MG DAILY 03/30 1000 AC 04/01 PO 1036 Atorvastatin Calcium 40 MG QPM 03/29 2200 AC 03/31 PO 2153 Cephalexin 500 MG BID 03/30 1000 AC 04/01 PO 1036 Clopidogrel Bisulfate 75 MG DAILY 03/30 1000 AC 04/01 PO 1036 Dexamethasone 0.5 MG BID 03/30 2200 AC 04/01 PO 1036 Docusate Sodium 100 MG BID 03/29 1000 AC 04/01 PO 1036 Furosemide 20 MG 03/30 1000 AC 04/01 PO 1036 Heparin Sodium 100 UNIT ONCE PRN 03/31 0700 AC (Porcine) IV Levetiracetam 1,000 MG DAILY 04/02 1000 AC PO Levetiracetam 1,500 MG QPM 04/01 2200 AC PO Levetiracetam 1,000 MG BID 03/31 2230 DC 04/01 PO 1036 Levetiracetam 1,000 MG BID 03/29 1000 DC 03/31 PO 1032 Levothyroxine Sodium 0.1 MG DAILY AC 03/29 0823 AC 04/01 PO 0550 Lidocaine 1 ISIS DAILY PRN 03/30 2100 AC TOP Lisinopril 10 MG DAILY 03/29 1321 AC 04/01 PO 1036 Magnesium Oxide 400 MG BID 03/31 1355 DC 03/31 PO 03/31 2201 2205 Metoprolol Tartrate 25 MG BID 03/29 1321 AC 04/01 PO 1036 Morphine Sulfate 2 MG Q4P PRN 03/29 0845 AC IV Nitroglycerin 1 GM Q6 03/29 1320 AC 04/01 TOP 1705 Nitroglycerin 0.4 MG ONCE PRN 03/29 0815 AC SL Oxycodone/ 1 TAB Q6P PRN 03/29 0845 AC Acetaminophen PO Oxymetazoline HCl 2 SPRAY BID PRN 03/30 0215 AC PENELOPE Polyethylene Glycol 17 GM AT BEDTIME 03/29 2200 AC 03/31 PO 2153 Tiotropium [place] 1 PUF DAILY 03/29 1000 AC 04/01 INH 1037 Assessment/Plan Assessment: This is a 80-year-old female with past medical history of lung cancer on Vimpat who recently had a change of medications were presented to the emergency department feeling weak and having positive troponins in the setting of known EKG changes. Troponins elevations are likely related to demand ischemia. We'll admit to telemetry and continue monitoring. #Rule out ACS Continuous cardiac monitoring for any arrhythmias Oxygen supplementation to keep oxygen saturation above 90 Troponin no EKG changes Patient was started on IV heparin, aspirin Plavix, atorvastatin, nitroglycerin paste, metoprolol 25 mg twice a day and lisinopril 10. 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 #Epistaxis : 03/30/16 patient had an episode of epistaxis, patient is on heparin, H&H dropped from 9.4-7.9 this morning, will get repeat H&H in evening today, if further drop and transfuse, platelets baseline 126 today 88, will follow-up repeat levels. ENT consult has been placed, recommended to start the patient on Keflex, leave nasal packing in detail till . #Leg edema Continue Lasix 40 mg by mouth every other day Monitor ins and outs daily weights History of COPD TRC neb Continue Spiriva 1 puff daily Diet: Heart Healthy CODE: DNR/DNI DVT Prophylaxis Lovenox 40 units subcutaneous Problem List: 1. Lung cancer 2. Chest wall pain Pain Ratin Pain Location: none Pain Goal: Remain pain free Pain Plan: mild pp Tomorrow's Labs & Rationales: CBC for h&H monitoring NATHALIA TAYLOR MD 04/01/16 1133: Attending MD Review Statement Attending Statement Attending MD Statement: examined this patient, discuss w/resident/PA/EXPERIMENTAL FLIGHT TEST MECHANIC, agreed w/resident/PA/EXPERIMENTAL FLIGHT TEST MECHANIC, reviewed EMR data (avail), discussed with nursing, discussed with case mgmt, amended to note Attending Assessment/Plan: Patient seen and examined. Resting comfortably. No issues overnight. Oxygen supplementation as been weaned down. She denies chest pain or shortness of breath. She complained of mild dysphasia yesterday due to trickling of blood down her throat. Diet was changed to modified diet yesterday. This morning she was sleepy but easily aroused. She offered no complaints. Nasal packing is scheduled to be discontinued tomorrow by the ENT service. Following the reevaluation patient may be discharged. Due to her overall physical deconditioning she will likely require short-term rehabilitation at the [facility] facility. Follow recommendations of the physical therapy service. We are still awaiting evaluation by the neurology service regarding her AED. She remains on Keppra and Vimpat is still on hold.
[2016-04-01 07:56] LABS: ABSOLUTE BASOPHIL COUNT 0 /CUMM (0.0-0.2); ABSOLUTE EOSINOPHIL COUNT 0 /CUMM (0.0-0.7); ABSOLUTE GRANULOCYTE CT 3.5 /CUMM (1.4-6.5); ABSOLUTE LYMPH COUNT 1.2 /CUMM (1.2-3.4); ABSOLUTE MONOCYTE COUNT 0.9 /CUMM (0.10-0.60); BASOPHIL % 0.2 % (0.0-2.0); EOSINOPHIL % 0.5 % (0-5); GRANULOCYTE % 62.2 % (42.2-75.2); HEMATOCRIT 25.1 % (37-47); MEAN CORPUSCULAR HGB 31.6 PG (27.0-31.0); MEAN CORPUSCULAR HGB CONC 32.5 G/DL (33.0-37.0); MEAN CORPUSCULAR VOLUME 97.3 FL (81.0-99.0); MEAN PLATELET VOLUME 8.8 FL (7.4-10.4); PLATELET COUNT 66 /CUMM (130-400); RBC DISTRIBUTION WIDTH 20.6 % (11.5-14.5); RED BLOOD CELL CT 2.58 /CUMM (4.20-5.40)
[2016-04-01 08:00] VITALS: BP 128/68
[2016-04-01 08:49] LABS: WHITE BLOOD CELL COUNT 5.1 /CUMM (4.8-10.8)
--- NOTE | 2016-04-01 09:40 | Cons- Neurology ---
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 April 2015: 2.6cm left parietal brain metastasis noted. 06/12/15 SRS to the brain metastasis. Developed new onset right body focal motor seizures in October 2015. Was managed at [facility] on Keppra monotherapy initially, Vimpat later added. Follows in our office with Dr. Dasilva was doing well on these 2 meds until early February of this year at which time she had breakthrough partial motor events prompting increase of Keppra from 750 mg twice a day to 1000 mg twice a day. Had additional rake through events in late February, at which point Vimpat was increased from 100 mg twice a day to 100 mg in the a.m. 200 mg in the p.m., with a goal dose of 200 mg twice a day. However, after titrating up to 100 mg a.m. 200 mg p.m., she developed dizziness and diplopia, prompting her current hospitalization here at [facility]. Surprisingly she ruled in for an an NSTEMI. Hospital course complicated by epistaxis while on anticoagulation for the NSTEMI. Her Vimpat was apparently stopped completely rather than tapered, for unclear reasons. She has been continued on Keppra 1000 mg twice a day. Fortunately, she has had no breakthrough seizures since admission. Dizziness has nearly resolved. She continues to deny chest pain or palpitations. She does easily become dyspneic on exertion however. She is currently on oxygen therapy. In terms of her chemotherapy, she has been on mitomycin, navelbin, carboplatin, Alimta, Taxotere, optivo, Avastin, and most recently a combination of carboplatin/Gemzar/Avastin. 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 Allergies/Medications Allergies: Coded Allergies: ciprofloxacin (From Cipro) (DIZZY 03/29/16) levofloxacin (SOB, TIGHTNESS IN CHEST 03/29/16) Home Med List: Atorvastatin Calcium (Lipitor) 40 MG TABLET 1 TAB PO QPM CHOLESTEROL ( Reported) Dexamethasone 0.5 MG TABLET 0.5 MG PO BID STEROID (Reported) 2 AM 1 PM Furosemide 20 MG TABLET 20 MG PO Wednesday WATER RETENTION (Reported) Lacosamide (Vimpat) 100 MG TABLET 100 MG PO BID SEIZURES (Reported) ONE IN MORNING AND TWO PM FOR ONE WEEK TILL 04/01/16 AND TWO IN THE AM AND TWO THE PM Levetiracetam 1,000 MG TABLET 1,000 MG CA BID SEIZURES (Reported) Levothyroxine Sodium 50 MCG TABLET 100 MCG PO DAILY THYROID HEALTH (Reported) Tiotropium [place] (Spiriva) 18 MCG CAP.W.DEV 1 CAP INH DAILY EMPHYSEMA ( Reported) Current Medications: Current Medications Sig/Kong Start time Last Medication Dose Route Stop Time Status Admin Acetaminophen 650 MG Q6P PRN 03/29 0845 AC PO Aspirin 243 MG DAILY 03/30 1000 AC 04/01 PO 1036 Atorvastatin Calcium 40 MG QPM 03/29 2200 AC 03/31 PO 2153 Cephalexin 500 MG BID 03/30 1000 AC 04/01 PO 1036 Clopidogrel Bisulfate 75 MG DAILY 03/30 1000 AC 04/01 PO 1036 Dexamethasone 0.5 MG BID 03/30 2200 AC 04/01 PO 1036 Docusate Sodium 100 MG BID 03/29 1000 AC 04/01 PO 1036 Furosemide 20 MG 03/30 1000 AC 04/01 PO 1036 Heparin Sodium 100 UNIT ONCE PRN 03/31 0700 AC (Porcine) IV Levetiracetam 1,000 MG BID 03/31 2230 AC 04/01 PO 1036 Levetiracetam 1,000 MG BID 03/29 1000 DC 03/31 PO 1032 Levothyroxine Sodium 0.1 MG DAILY AC 03/29 0823 AC 04/01 PO 0550 Lidocaine 1 ISIS DAILY PRN 03/30 2100 AC TOP Lisinopril 10 MG DAILY 03/29 1321 AC 04/01 PO 1036 Magnesium Oxide 400 MG BID 03/31 1355 DC 03/31 PO 03/31 2200 2205 Metoprolol Tartrate 25 MG BID 03/29 1321 AC 04/01 PO 1036 Morphine Sulfate 2 MG Q4P PRN 03/29 0845 AC IV Nitroglycerin 1 GM Q6 03/29 1320 AC 04/01 TOP 0551 Nitroglycerin 0.4 MG ONCE PRN 03/29 0815 AC SL Oxycodone/ 1 TAB Q6P PRN 03/29 0845 AC Acetaminophen PO Oxymetazoline HCl 2 SPRAY BID PRN 03/30 0215 AC PENELOPE Patient Medication 1 ED .STK-MED ONE 03/31 1343 OR Teaching ED 03/31 1344 Polyethylene Glycol 17 GM AT BEDTIME 03/29 2200 AC 03/31 PO 2153 Tiotropium [place] 1 PUF DAILY 03/29 1000 AC 04/01 INH 1037 Review of Systems Review of Systems: REVIEW OF SYSTEMS: (-) = negative / normal blank = not discussed Neurologic: see HPI Eyes: (-) ENT: See HPI Constitutional: (-) CV: See HPI Respiratory: See HPI /Renal: (-) Musculoskeletal: (-) Skin: (-) Psychiatric: Has been upset regarding her youngest daughter, age 54, having suffered a significant stroke in January, currently receiving rehabilitation at [place] and is aphasic Heme: (-) GI: (-) Allergy/Immune: (-) Endocrine: (-) Other: (-) Past History Travel History Traveled to [place] past 21 day No Medical History Blood Transfusion Hx: No Neurological: left frontal brain metastasis, 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 EENT: NONE Cardiovascular: aortic aneurysm, CAD, hypertension, hyperlipidemia Respiratory: emphysema, lung cancer Gastrointestinal: diverticulitis, lower GI bleed Hepatic: NONE Renal: NONE Musculoskeletal: NONE Psychiatric: NONE Endocrine: hypoparathyroidism Blood Disorders: NONE Cancer(s): lung cancer (s/p wedge resection on R) 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 Surgical History Surgical History: AAA repair cardiac cath with stents carotid endarterectomy right wedge resection of lung for lung CA Psychosocial History Where Do You Live? Home Who Do You Live With? child, self Services at Home: Oxygen Primary Language: Georgian Smoking Status: Former Smoker (quit at time of MN) ETOH Use: denies use Illicit Drug Use: denies illicit drug use Living Will? no Functional Ability ADLs Independent: dressing, eating, toileting, bathing. Ambulation: independent, cane, walker IADLs Independent: shopping, housework, finances, food prep, telephone, transportation , medication admin. Exam & Diagnostic Data Vital Signs and I&O Vital Signs Date Time Temp Pulse Resp B/P Pulse O2 O2 Flow FiO2 Ox Delivery Rate 04/01 806 97 Nasal 2.0L Cannula 04/01 799 Nasal 2.0L Cannula 04/01 799 97.8 90 20 128/68 97 Nasal 2.0L Cannula 04/01 0042 97.9 82 20 152/60 94 Nasal 2.0L Cannula 04/01 0000 Nasal 2.0L Cannula 03/31 2153 96 148/64 03/31 1830 92 112/62 03/31 1612 98.6 88 20 106/62 90 Nasal 3.0L Cannula 03/31 1600 90 Nasal 3.0L Cannula 03/31 1305 81 138/72 03/31 1118 99 Nasal 3.0L Cannula 03/31 1032 95 142/76 Intake & Output 04/01 1600 04/01 0800 04/01 0000 Intake Total 60 560 Output Total 300 200 Balance -240 360 Intake, IV 10 Intake, Oral 50 560 Number 0 Bowel Movements Output, Urine 300 200 Patient 150 lb Weight Physical Exam: Awake, alert, oriented Head normocephalic Mildly labored respirations No edema or joint deformities of the extremities Neurologic exam: Awake alert oriented to person place time and situation. Mild disfluency of speech/verbal apraxia. Intact language comprehension. Able to follow commands. Cranial nerves: Visual cain full to confrontation. Fundi benign. Extraocular movements full. Pupils equal round reactive to light. Facial movements symmetric. Symmetric elevation of the uvula and palate. Symmetric tongue protrusion. Facial sensation intact. Grossly intact hearing. Shoulder shrug symmetric. Motor: Normal muscle bulk, tone, strength. No abnormal involuntary movements. Sensation: Intact to light touch Gait: Normal Last 48 Hours of Lab Results: Laboratory Tests 04/01 03/31 0600 1400 Coagulation APTT Cancelled Hematology CBC w Diff MAN DIFF ORDERED WBC (4.8 - 10.8 /CUMM) 5.1 RBC (4.20 - 5.40 /CUMM) 2.58 L Hgb (12.0 - 16.0 G/DL) 8.1 L Hct (37 - 47 %) 25.1 L MCV (81.0 - 99.0 FL) 97.3 MCH (27.0 - 31.0 PG) 31.6 H RDW (11.5 - 14.5 %) 20.6 H Plt Count (130 - 400 /CUMM) 66 L MPV (7.4 - 10.4 FL) 8.8 Gran % (42.2 - 75.2 %) 62.2 Lymphocytes % (20.5 - 51.1 %) 20.5 Monocytes % (1.7 - 9.3 %) 16.6 H Eosinophils % (0 - 5 %) 0.5 Basophils % (0.0 - 2.0 %) 0.2 Absolute Granulocytes (1.4 - 6.5 /CUMM) 3.5 Segmented Neutrophils (42.2 - 75.2 %) 66 Band Neutrophils (0.0 - 5.0 %) 3 Absolute Lymphocytes (1.2 - 3.4 /CUMM) 1.2 Lymphocytes (20.5 - 51.1 %) 19 L Monocytes (1.7 - 9.3 %) 11 H Absolute Monocytes (0.10 - 0.60 /CUMM) 0.9 H Eosinophils (0 - 5.0 %) 1 Absolute Eosinophils (0.0 - 0.7 /CUMM) 0 Absolute Basophils (0.0 - 0.2 /CUMM) 0 Nucleated RBCs (0.0 - 0.0 /100WBC) 10 H Platelet Estimate (ADEQUATE) DECREASED Polychromasia 1+ Hypochromic-Microcytic 2+ Poikilocytosis 2+ Anisocytosis 2+ PUBS MCHC (33.0 - 37.0 G/DL) 32.5 L 03/31 03/31 0615 0115 Coagulation APTT (25 - 37 SEC) > 120 *H 75 H Hematology CBC w Diff MAN DIFF ORDERED WBC (4.8 - 10.8 /CUMM) 7.6 RBC (4.20 - 5.40 /CUMM) 2.59 L Hgb (12.0 - 16.0 G/DL) 8.1 L Hct (37 - 47 %) 25.1 L MCV (81.0 - 99.0 FL) 96.9 MCH (27.0 - 31.0 PG) 31.2 H RDW (11.5 - 14.5 %) 21.5 H Plt Count (130 - 400 /CUMM) 78 L MPV (7.4 - 10.4 FL) 8.3 Gran % (42.2 - 75.2 %) 71.5 Lymphocytes % (20.5 - 51.1 %) 17.7 L Monocytes % (1.7 - 9.3 %) 10.4 H Eosinophils % (0 - 5 %) 0.2 Basophils % (0.0 - 2.0 %) 0.2 Absolute Granulocytes (1.4 - 6.5 /CUMM) 5.7 Segmented Neutrophils (42.2 - 75.2 %) 79 H Absolute Lymphocytes (1.2 - 3.4 /CUMM) 1.4 Lymphocytes (20.5 - 51.1 %) 16 L Monocytes (1.7 - 9.3 %) 5 Absolute Monocytes (0.10 - 0.60 /CUMM) 0.8 H Absolute Eosinophils (0.0 - 0.7 /CUMM) 0 Absolute Basophils (0.0 - 0.2 /CUMM) 0 Nucleated RBCs (0.0 - 0.0 /100WBC) 5 H Platelet Estimate (ADEQUATE) DECREASED Polychromasia 1+ Hypochromic-Microcytic 1+ Poikilocytosis 1+ Ovalocytes 1+ Elliptocytes FEW PUBS MCHC (33.0 - 37.0 G/DL) 32.2 L Other Body Source Fld Total RBCs Counted (%) 100 03/30 1944 Coagulation APTT (25 - 37 SEC) 35 Hematology CBC w Diff NO MAN DIFF REQ WBC (4.8 - 10.8 /CUMM) 7.1 RBC (4.20 - 5.40 /CUMM) 2.56 L Hgb (12.0 - 16.0 G/DL) 8.0 L Hct (37 - 47 %) 24.7 L MCV (81.0 - 99.0 FL) 96.5 MCH (27.0 - 31.0 PG) 31.3 H RDW (11.5 - 14.5 %) 21.0 H Plt Count (130 - 400 /CUMM) 83 L MPV (7.4 - 10.4 FL) 8.9 Gran % (42.2 - 75.2 %) 78.2 H Lymphocytes % (20.5 - 51.1 %) 12.8 L Monocytes % (1.7 - 9.3 %) 8.4 Eosinophils % (0 - 5 %) 0.2 Basophils % (0.0 - 2.0 %) 0.4 Absolute Granulocytes (1.4 - 6.5 /CUMM) 5.6 Absolute Lymphocytes (1.2 - 3.4 /CUMM) 0.9 L Absolute Monocytes (0.10 - 0.60 /CUMM) 0.6 Absolute Eosinophils (0.0 - 0.7 /CUMM) 0 Absolute Basophils (0.0 - 0.2 /CUMM) 0 PUBS MCHC (33.0 - 37.0 G/DL) 32.5 L Imaging/Other Studies: Brain MRI w/ & w/o contrast IMPRESSION: Findings consistent with response to treatment. Specifically there has been substantial reduction of enhancement and there has been a reduction of perilesional vasogenic edema associated with the left frontal lobe metastasis. There is no new mass or enhancement. DICTATED BY: CATHERINE MENDOZA,SHIRA Aden DATE/TIME DICTATED:03/30/161743 Assessment/Plan Assessment: 80-year-old woman with squamous cell lung carcinoma with a left frontal brain met, which has responded to Gamma knife therapy and dexamethasone. 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 She has had recent breakthrough events which were initially controlled with the Keppra dose increase. Subsequent breakthrough and Vimpat dose increase resulted in side effects. For unclear reasons, she was completely taken off of Vimpat on this admission. Fortunately, she has had no breakthrough seizures Recommendations: For now, we will just keep her off Vimpat on a trial basis Please increase her Keppra to 1000 mg in the morning and 1500 mg in the evening Please have the patient follow-up in our office with Dr. Tony Dasilva in 1-2 weeks I discussed my recommendations in detail with the patient's daughter Socorro, who manages her medications and overall medical care Copies To: TIKI MENDOZA,TONY Ivy; ALEXANDRIA MENDOZA,SHIRA Tristan; EZEKIEL MENDOZA,LANETTE Ragsdale Consult Acknowledgment - Thank you for your consult request.
--- NOTE | 2016-04-01 14:40 | PN- Cardiology ---
Subjective Subjective: * No chest discomfort or shortness of breath. * Patient is more alert and communicative. * sinus rhythm Objective Vital Signs and I&Os Vital Signs Date Time Temp Pulse Resp B/P Pulse O2 O2 Flow FiO2 Ox Delivery Rate 04/01 1143 Nasal 2.0L Cannula 04/01 1107 Nasal 2.0L Cannula 04/01 1056 Nasal 2.0L Cannula 04/01 1044 Nasal 2.0L Cannula 04/01 1036 128/68 04/01 1036 128/68 04/01 0807 97 Nasal 2.0L Cannula 04/01 799 Nasal 2.0L Cannula 04/01 799 97.8 90 20 128/68 97 Nasal 2.0L Cannula 04/01 0042 97.9 82 20 152/60 94 Nasal 2.0L Cannula 04/01 0000 Nasal 2.0L Cannula 03/31 2153 96 148/64 03/31 1830 92 112/62 03/31 1612 98.6 88 20 106/62 90 Nasal 3.0L Cannula 03/31 1600 90 Nasal 3.0L Cannula Intake & Output 04/01 1600 04/01 0000 03/31 1600 03/31 0800 03/31 0000 Intake Total 720 60 560 842 272 290 Output Total 600 300 200 450 200 300 Balance 120 -240 360 392 72 -10 Intake, IV 10 82 152 40 Intake, Oral 720 50 560 760 120 250 Number 0 Bowel Movements Output, Urine 600 300 200 450 200 300 Patient 150 lb Weight Physical Exam: General: WD/ WN female in NAD; lethargic but awake and oriented x 3 Neck: no JVD, no carotid bruit Heart: RRR w/o murmur Lungs: no crackles or wheezing Extemities: no edema Assessment/Plan Assessment/Plan * This patient is doing well on her current drug regimen. We will continue to treat her myocardial ischemia medically. She is currently pain free and without any evidence of decompensated congrestive heart failure or hemodynamic instability. Continue telemetry? No
[2016-04-01 16:26] VITALS: BP 118/80
[2016-04-01 23:06] VITALS: BP 98/60
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
[2016-04-02] MEDS ORDERED: METOPROLOL TART25 M1 PO ×2 (07:46→08:54)
[2016-04-02] MEDS ORDERED: LISINOPRIL10 M1 PO (07:46)
[2016-04-02] MEDS ORDERED: PLAVIX75 M1 PO (07:46)
[2016-04-02] MEDS ORDERED: ASPIRIN81 M4 PO (07:47)
[2016-04-02 08:31] VITALS: BP 108/60
--- NOTE | 2016-04-02 15:42 | PN- Cardiology ---
Subjective Subjective: * Patient feels well but desires to have her nasal packing taken out. No complaints of lightheadedness despite a borderline BP. Breathing is comfortable at rest and she denies chest disomfort. * persistent moderate to severe anemia with decreasing platelet count Objective Vital Signs and I&Os Vital Signs Date Time Temp Pulse Resp B/P Pulse O2 O2 Flow FiO2 Ox Delivery Rate 04/02 1124 98 108/60 04/02 0831 98.0 98 20 108/60 95 Nasal 2.0L Cannula 04/02 799 Nasal 2.0L Cannula 04/02 0000 Nasal 2.0L Cannula 04/01 2306 97.9 86 18 98/60 90 Nasal Cannula 04/01 2128 102 120/84 04/01 1626 97.2 90 18 118/80 91 04/01 1600 95 Nasal 2.0L Cannula Intake & Output 04/02 1600 04/02 0000 04/01 1600 04/01 0000 Intake Total 240 100 390 720 60 560 Output Total 250 350 600 300 200 Balance 240 -150 40 120 -240 360 Intake, IV 10 Intake, Oral 240 100 390 720 50 560 Number 1 0 Bowel Movements Output, Urine 250 350 600 300 200 Patient 150 lb Weight Physical Exam: General: WD/ WN female in NAD; lethargic but awake and oriented x 3 Neck: no JVD, no carotid bruit Heart: RRR w/o murmur Lungs: no crackles, mild expiratory wheezing is noted bilaterally Extemities: no edema Assessment/Plan Assessment/Plan * This patient is doing well from a cardiac standpoint. I would continue a small dose of beta ángel since her heart rate is at the upper limits of normal in the setting of a recent NSTEMI. Of course, her anemia may be causing some increase in heart rate. It is reasonable to hold her ACEI if her BP remains low. For the most part she has been over 100mmHg systolic. She is currently pain free and without any evidence of decompensated congrestive heart failure or hemodynamic instability. * Decreased H/H and low platelets. Would guaiac all stools and repeat CBC. On rare occasions Plavix can be associated with thrombocytopenia. Continue telemetry? No
[2016-04-02 15:59] VITALS: BP 106/60
[2016-04-02 18:10] VITALS: BP 110/60
[2016-04-03] VITALS (7 sets, daily range): BP systolic 90–112; BP diastolic 50–76
--- NOTE | 2016-04-03 07:27 | PN- Housestaff ---
PAUL MENDOZA,[facility] 04/03/16 0727: Subjective Follow-up For: Dizziness Chest pain/NSTEMI Tele-Events Since Last Visit: off Monitor Subjective: Patient seen and examined this morning. She was lying in bed in no acute distress. She remains afebrile, other vitals within normal limits, no complaints of chest pain, dizziness, palpitation. She said that she was not able to sleep last night and didn't want to answer anymore questions and wanted to sleep. Review of Systems Constitutional: Reports: see HPI. Objective Last 24 Hrs of Vital Signs/I&O Vital Signs Date Time Temp Pulse Resp B/P Pulse O2 O2 Flow FiO2 Ox Delivery Rate 04/03 818 98.1 101 18 103/52 94 Nasal 2.0L Cannula 04/03 08 Nasal 2.0L Cannula 04/03 0009 98.4 88 20 112/76 96 04/03 0000 95 Nasal 2.0L Cannula 04/02 2156 96 112/64 04/02 1810 110/60 04/02 1600 93 Nasal 2.0L Cannula 04/02 1559 97.7 98 18 106/60 93 04/02 1124 98 108/60 Intake & Output 04/03 1600 04/03 0800 04/03 0000 Intake Total 240 640 Output Total 200 Balance 40 640 Intake, Oral 240 640 Output, Urine 200 Physical Exam General Appearance: Alert, Oriented X3, Cooperative Cardiovascular: Regular Rate, Normal S1, Normal S2 Lungs: Clear to Auscultation, Normal Air Movement Abdomen: Normal Bowel Sounds, Soft, No Tenderness Extremities: No Clubbing, No Cyanosis, No Edema Current Medications: Current Medications Sig/Kong Start time Last Medication Dose Route Stop Time Status Admin Acetaminophen 650 MG Q6P PRN 03/29 0845 AC PO Aspirin 243 MG DAILY 03/30 999 AC 04/02 PO 1124 Atorvastatin Calcium 40 MG QPM 03/29 2199 AC 04/02 PO 2158 Cephalexin 500 MG BID 03/30 999 AC 04/02 PO 2158 Clopidogrel Bisulfate 75 MG DAILY 03/30 999 AC 04/02 PO 1124 Dexamethasone 0.5 MG BID 03/30 2199 AC 04/02 PO 2157 Docusate Sodium 100 MG BID 03/29 999 AC 04/02 PO 215 Furosemide 20 MG 03/30 AC 04/01 PO 103 Heparin Sodium 100 UNIT ONCE PRN 02/07 0700 AC (Porcine) IV Levetiracetam 1,000 MG DAILY 04/02 1000 AC 04/02 PO 1123 Levetiracetam 1,500 MG QPM 04/01 2200 AC 04/02 PO 2157 Levothyroxine Sodium 0.1 MG DAILY AC 03/29 0823 AC 04/03 PO 0639 Lidocaine 1 ISIS DAILY PRN 03/30 2100 AC TOP Metoprolol Tartrate 12.5 MG BID 04/02 1000 AC 04/02 PO 2156 Morphine Sulfate 2 MG Q4P PRN 03/29 0845 AC IV Nitroglycerin 1 GM Q6 03/29 1320 AC 04/03 TOP 0640 Nitroglycerin 0.4 MG ONCE PRN 03/29 0815 AC SL Oxycodone/ 1 TAB Q6P PRN 03/29 0845 AC Acetaminophen PO Oxymetazoline HCl 2 SPRAY BID PRN 03/30 0215 AC PENELOPE Patient Medication 1 ED .ST-MED ONE 04/02 1342 [place] Teaching [facility] 04/02 1343 Polyethylene Glycol 17 GM AT BEDTIME 03/29 2200 AC 04/02 PO 2158 Tiotropium [place] 1 PUF DAILY 03/29 1000 AC 04/02 INH 1124 Last 24 Hrs of Lab/[place] Results Last 24 Hrs of Labs/Mics: Laboratory Tests 04/03/16 0835: CBC w Diff Pending, WBC Pending, RBC Pending, Hgb Pending, Hct Pending, MCV Pending, MCH Pending, RDW Pending, Plt Count Pending, MPV Pending, PUBS MCHC Pending Assessment/Plan Assessment: This is a 80-year-old female with past medical history of lung cancer on Vimpat who recently had a change of medications were presented to the emergency department feeling weak and having positive troponins in the setting of known EKG changes. Troponins elevations are likely related to demand ischemia. We'll admit to telemetry and continue monitoring. #Rule out ACS Continuous cardiac monitoring for any arrhythmias Oxygen supplementation to keep oxygen saturation above 90 Troponin 0.17>>0.47>>0.33 no EKG changes Patient was started on IV heparin(stopped 03/31/16), aspirin Plavix, atorvastatin, nitroglycerin paste, metoprolol 25 mg>>12.5 twice a day, lisinopril discontinued. Blood pressure systolic ranging between 110-112. 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 #Epistaxis : 03/30/16 patient had an episode of epistaxis, patient is on heparin, H&H dropped from 9.4-7.9 this morning, will get repeat H&H in evening today, if further drop and transfuse, platelets baseline 126 today 88, will follow-up repeat levels. ENT recomemnded to keep patient on keflex and nasal packing will be taken out in [place] office upon discharge. Referral would be provided. #Leg edema Continue Lasix 40 mg by mouth every other day Monitor ins and outs daily weights History of COPD TRC neb Continue Spiriva 1 puff daily Diet: Heart Healthy CODE: DNR/DNI DVT Prophylaxis Lovenox 40 units subcutaneous Problem List: 1. Elevated troponin 2. Lung cancer 3. Hypercholesterolemia Pain Ratin Pain Location: None Pain Goal: Remain pain free Pain Plan: Mild pain pathway Tomorrow's Labs & Rationales: None patient to be discharged NATHALIA TAYLOR MD 04/03/16 1152: Attending MD Review Statement Attending Statement Attending MD Statement: examined this patient, discuss w/resident/PA/JAVA JSF DEVELOPER, agreed w/resident/PA/JAVA JSF DEVELOPER, discussed with family, reviewed EMR data (avail), discussed with nursing, discussed with case mgmt, amended to note Attending Assessment/Plan: Patient seen and examined. Denies chest pain or palpitations. Denies shortness of breath. She denies coughing up any blood clots. There is no bleeding from the left nostril. Nasal packing remains in place in the right nostril. Blood pressure is stable with adjustment of her hypertensive regimen yesterday. Unfortunately I hemoglobin level is trending downwards today. Hemoglobin is down to 7.5 today from 8.1 yesterday. I did discuss this with the ENT surgeon Dr. Cruzito Davila today. Patient denies coughing up or spitting out chunks of blood however she does report mild difficulty swallowing which is improved when she was switched to a mechanical soft diet. The surgeon recommends not discontinuing her nasal packing today due to concern that she may have ongoing blood loss from her epistaxis. His recommendation is for the patient to follow-up with him in his office in [place] on Wednesday. He reports that in the office he has necessary equipment to address any bleeding that is detected once the nasal packing is removed. He recommends continue patient on prophylactic antibiotic therapy. Her bleeding is most likely aggravated by her ongoing use of aspirin and Plavix. She however requires this medication due to her acute coronary syndrome and underlying coronary artery disease. Dual antiplatelet therapy reduces her risk for future cardiac events. However it does expose her to the risk of bleeding complications especially in the setting of her thrombocytopenia. 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 Case was discussed with her hematology service (Dr Coulter and Dr Espino). Her mental statuus has improved compared to admission. Vimpat has been discontinued per neurology recommendations. She is to continue keppra at an increased dose for seizure prophylaxis. Problems 1. Acute Blood Loss Anemia 2. Epistaxis 3. Thrombocytopenuia 4. Lung cancer with mnets to the brain 5. Acute Coronary Syndrome: NSTEMI Plan: -Here acute on chronic anemia raises concern for ongoing bleeding. -Transfuse one unit of PRBC. -Monitor H/H over the next 48hrs to ensure H/H is stable prior to discharge -Keep Hct>24. -Guaic all stools. If positive obtain GI consult. -Would recommend monitoring in the hospital post trnasfusion to ensure her Hb is stable prior to discharge.
[2016-04-03] MEDS ORDERED: CEPHALEXIN500 M3 PO (07:59)
[2016-04-03 09:20] LABS: ABSOLUTE BASOPHIL COUNT 0 /CUMM (0.0-0.2); ABSOLUTE EOSINOPHIL COUNT 0 /CUMM (0.0-0.7); ABSOLUTE GRANULOCYTE CT 3.1 /CUMM (1.4-6.5); BASOPHIL % 0.3 % (0.0-2.0); EOSINOPHIL % 0.4 % (0-5); GRANULOCYTE % 59.8 % (42.2-75.2); HEMATOCRIT 23.6 % (37-47); MEAN CORPUSCULAR HGB 31.1 PG (27.0-31.0); MEAN CORPUSCULAR HGB CONC 31.9 G/DL (33.0-37.0); MEAN CORPUSCULAR VOLUME 97.4 FL (81.0-99.0); MEAN PLATELET VOLUME 9.1 FL (7.4-10.4); PLATELET COUNT 75 /CUMM (130-400); RBC DISTRIBUTION WIDTH 21.9 % (11.5-14.5); RED BLOOD CELL CT 2.42 /CUMM (4.20-5.40)
--- NOTE | 2016-04-03 09:47 | NUR ---
PHYSICAL THERAPY: Attempted to see patient this morning. Patient was in the care of transport and leaving the floor at this time. Physical Therapy will F/U as appropriate.
[2016-04-03 10:13] LABS: WHITE BLOOD CELL COUNT 4.9 /CUMM (4.8-10.8)
--- NOTE | 2016-04-03 15:33 | PN- Cardiology ---
Subjective Subjective: * No complaints. No chest discomfort or shortness of breath. * H/H is trending down with no obvious bleeding. Platelets are improving but still low in absolute terms. Objective Vital Signs and I&Os Vital Signs Date Time Temp Pulse Resp B/P Pulse O2 O2 Flow FiO2 Ox Delivery Rate 04/03 1217 100/58 04/03 1029 101 110/60 04/03 0819 98.1 101 18 103/52 94 Nasal 2.0L Cannula 04/03 0800 Nasal 2.0L Cannula 04/03 0009 98.4 88 20 112/76 96 04/03 0000 95 Nasal 2.0L Cannula 04/02 2156 96 112/64 04/02 1810 110/60 04/02 1600 93 Nasal 2.0L Cannula 04/02 1559 97.7 98 18 106/60 93 Intake & Output 04/03 1600 04/03 0800 04/03 0000 04/02 1600 04/02 0800 04/02 0000 Intake Total 480 240 640 240 100 390 Output Total 200 250 350 Balance 480 40 640 240 -150 40 Intake, Oral 480 240 640 240 100 390 Number 1 Bowel Movements Output, Urine 200 250 350 Physical Exam: General: WD/ WN female in NAD; lethargic but awake and oriented x 3 Neck: no JVD, no carotid bruit Heart: RRR w/o murmur Lungs: no crackles or wheezing Extemities: no edema Assessment/Plan Assessment/Plan * This patient is doing well from a cardiac standpoint. I would continue a small dose of beta ángel since her heart rate is at the upper limits of normal in the setting of a recent NSTEMI. Of course, her anemia may be causing some increase in heart rate. It is reasonable to hold her ACEI if her BP remains low. For the most part she has been over 100mmHg systolic. She is currently pain free and without any evidence of decompensated congrestive heart failure or hemodynamic instability. * Decreased H/H and low platelets. This could be the result of bleeding or chemotherapy. Plavix is a drug that is also associated with thrombocytopenia. Guaiac all stools and follow her CBC. Her platelets are coming up so I am less concerned about keeping her on aspirin and Plavix which are beneficial for her in the setting of her heart disease. The H/H continues to decreased which is a bit more concerning for ongoing bleeding. An anemia workup may help determine if it is a production issue from chemotherapy or ongoing bleeding. Check a reticulocyte count and serum haptoglobin. Continue telemetry? Yes
[2016-04-03 21:39] LABS: ABSOLUTE BASOPHIL COUNT 0 /CUMM (0.0-0.2); ABSOLUTE EOSINOPHIL COUNT 0 /CUMM (0.0-0.7); ABSOLUTE GRANULOCYTE CT 3.6 /CUMM (1.4-6.5); ABSOLUTE LYMPH COUNT 1.3 /CUMM (1.2-3.4); ABSOLUTE MONOCYTE COUNT 1.4 /CUMM (0.10-0.60); BASOPHIL % 0.2 % (0.0-2.0); EOSINOPHIL % 0.3 % (0-5); GRANULOCYTE % 56.7 % (42.2-75.2); MEAN CORPUSCULAR HGB 30.9 PG (27.0-31.0); MEAN CORPUSCULAR HGB CONC 32.2 G/DL (33.0-37.0); MEAN CORPUSCULAR VOLUME 95.8 FL (81.0-99.0); MEAN PLATELET VOLUME 9.2 FL (7.4-10.4); PLATELET COUNT 88 /CUMM (130-400); RBC DISTRIBUTION WIDTH 20.7 % (11.5-14.5); WHITE BLOOD CELL COUNT 6.3 /CUMM (4.8-10.8)
[2016-04-03 21:42] LABS: HEMATOCRIT 30.3 % (37-47); RED BLOOD CELL CT 3.16 /CUMM (4.20-5.40)
[2016-04-04 07:53] VITALS: BP 104/60
--- NOTE | 2016-04-04 07:56 | PN- Housestaff ---
JUNIE,[facility] 04/04/16 0756: Subjective Follow-up For: AMS EPISTAXIS Subjective: Patient seen and examined. She was setting on the bed eating her breakfast. she is brigt, report sleeping well at night. Only compaint is that she feels tierd. She denies any chest pain, headache, sob, n/v, fever, chills and there is no change in the urinary or bowel habits. She denies any episode of epistaxis. Nasal packing in place. Vitals remains stable overnigt. Review of Systems Constitutional: Reports: no symptoms. EENTM: Reports: no symptoms, see HPI. Cardiovascular: Reports: no symptoms. Respiratory: Reports: no symptoms. Gastrointestinal: Reports: no symptoms. Genitourinary: Reports: no symptoms. Musculoskeletal: Reports: no symptoms. Objective Last 24 Hrs of Vital Signs/I&O Vital Signs Date Time Temp Pulse Resp B/P Pulse O2 O2 Flow FiO2 Ox Delivery Rate 04/04 0753 97.4 106 20 104/60 95 04/04 0000 95 Nasal 2.0L Cannula 04/03 2340 98.9 104 18 108/70 97 Nasal Cannula 04/03 1752 100/70 04/03 1641 92/58 04/03 1530 99.1 86 18 90/50 91 Nasal 2.0L Cannula 04/03 1217 100/58 04/03 1029 101 110/60 Intake & Output 04/04 1600 04/04 0800 04/04 0000 Intake Total 160 300 Output Total Balance 160 300 Intake, Oral 160 300 Physical Exam General Appearance: Alert, Oriented X3, Cooperative, No Acute Distress Skin: No Rashes, No Breakdown, No Significant Lesion HEENT: Atraumatic, PERRLA, EOMI, Mucous Membr. moist/pink Cardiovascular: Normal S1, Normal S2 Lungs: Clear to Auscultation, Normal Air Movement Abdomen: Normal Bowel Sounds, Soft, No Tenderness Extremities: No Edema, Normal Pulses Vascular: Normal Pulses, Pulses Symmetrical Current Medications: Current Medications Sig/Kong Start time Last Medication Dose Route Stop Time Status Admin Acetaminophen 650 MG Q6P PRN 03/29 0845 AC PO Aspirin 243 MG DAILY 03/30 1000 AC 04/03 PO 1027 Atorvastatin Calcium 40 MG QPM 03/29 2200 AC 04/03 PO 2155 Cephalexin 500 MG BID 03/30 1000 AC 04/03 PO 2155 Clopidogrel Bisulfate 75 MG DAILY 03/30 1000 AC 04/03 PO 1028 Dexamethasone 0.5 MG BID 03/30 2200 AC 04/03 PO 215 Docusate Sodium 100 MG BID 03/29 1000 AC 04/03 PO 215 Furosemide 20 MG 03/30 1000 AC 04/03 PO 1027 Heparin Sodium 100 UNIT ONCE PRN 03/31 0700 AC (Porcine) IV Levetiracetam 1,000 MG DAILY 04/02 1000 AC 04/03 PO 1027 Levetiracetam 1,500 MG QPM 04/01 2200 AC 04/03 PO 215 Levothyroxine Sodium 0.1 MG DAILY AC 03/29 0823 AC 04/04 PO 0623 Lidocaine 1 ISIS DAILY PRN 03/30 2100 AC TOP Metoprolol Tartrate 12.5 MG BID 04/02 1000 AC 04/03 PO 1029 Morphine Sulfate 2 MG Q4P PRN 03/29 0845 AC IV Nitroglycerin 1 GM Q6 03/29 1320 AC 04/03 TOP 0640 Nitroglycerin 0.4 MG ONCE PRN 03/29 0815 AC SL Oxycodone/ 1 TAB Q6P PRN 03/29 0845 AC Acetaminophen PO Oxymetazoline HCl 2 SPRAY BID PRN 03/30 0215 AC PENELOPE Polyethylene Glycol 17 GM AT BEDTIME 03/29 2199 AC 04/03 PO 215 Tiotropium [place] 1 PUF DAILY 03/29 1000 AC 04/03 INH 1027 Last 24 Hrs of Lab/[place] Results Last 24 Hrs of Labs/Mics: Laboratory Tests 04/04/16 0615: CBC w Diff Pending, WBC Pending, RBC Pending, Hgb Pending, Hct Pending, MCV Pending, MCH Pending, RDW Pending, Plt Count Pending, MPV Pending, PUBS MCHC Pending 04/03/162044: Haptoglobin Pending 04/03/162044: CBC w Diff MAN DIFF ORDERED, RBC 3.16 L, MCV 95.8, MCH 30.9, RDW 20.7 H, MPV 9.2, Gran % 56.7, Lymphocytes % 20.4 L, Monocytes % 22.4 H, Eosinophils % 0.3, Basophils % 0.2, Absolute Granulocytes 3.6, Segmented Neutrophils 60, Absolute Lymphocytes 1.3, Lymphocytes 22, Monocytes 18 H, Absolute Monocytes 1.4 H, Absolute Eosinophils 0, Absolute Basophils 0, Nucleated RBCs 4 H, Polychromasia 1+, Poikilocytosis FEW, Anisocytosis 2+, Macrocytic Cells FEW, Stomatocytes FEW, PUBS MCHC 32.2 L, Retic Count 3.64 H Assessment/Plan Assessment: This is a 80-year-old female with past medical history of lung cancer on Vimpat who recently had a change of medications were presented to the emergency department feeling weak and having positive troponins in the setting of known EKG changes. Troponins elevations are likely related to demand ischemia. We'll admit to telemetry and continue monitoring. #Rule out ACS Continuous cardiac monitoring for any arrhythmias Oxygen supplementation to keep oxygen saturation above 90 Troponin 0.17>>0.47>>0.33 no EKG changes Patient was started on IV heparin(stopped 03/31/16), aspirin Plavix, atorvastatin, nitroglycerin paste, metoprolol 25 mg>>12.5 twice a day, lisinopril discontinued. Blood pressure systolic ranging between 110-112. 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 #Epistaxis : 03/30/16 patient had an episode of epistaxis, patient is on heparin, H&H stable. ENT recomemnded to keep patient on keflex and nasal packing will be taken out in [place] office upon discharge. Referral would be provided. #Leg edema Continue Lasix 40 mg by mouth every other day Monitor ins and outs daily weights History of COPD TRC neb Continue Spiriva 1 puff daily Diet: Heart Healthy CODE: DNR/DNI DVT Prophylaxis Lovenox 40 units subcutaneous Problem List: 1. Brain metastasis Pain Ratin Pain Location: - Pain Goal: Remain pain free Pain Plan: - Tomorrow's Labs & Rationales: - LOPEZ RAMIREZ MD 04/04/16 0447: Attending MD Review Statement Attending Statement Attending MD Statement: examined this patient, discuss w/resident/PA/MORTGAGE BROKER, agreed w/resident/PA/MORTGAGE BROKER, reviewed EMR data (avail) Attending Assessment/Plan: Patient doing well with no further episodes of epistaxis. Seen by ENT today. Patient's Hgb and platelets are now stable. Will continue ASA/Plavix and continue to monitor Hgb. Continue current management.
[2016-04-04 08:33] LABS: ABSOLUTE BASOPHIL COUNT 0 /CUMM (0.0-0.2); ABSOLUTE EOSINOPHIL COUNT 0 /CUMM (0.0-0.7); ABSOLUTE GRANULOCYTE CT 3.4 /CUMM (1.4-6.5); ABSOLUTE LYMPH COUNT 1.1 /CUMM (1.2-3.4); ABSOLUTE MONOCYTE COUNT 1.3 /CUMM (0.10-0.60); BASOPHIL % 0.3 % (0.0-2.0); EOSINOPHIL % 0.2 % (0-5); GRANULOCYTE % 58.3 % (42.2-75.2); MEAN CORPUSCULAR HGB 31.8 PG (27.0-31.0); MEAN CORPUSCULAR HGB CONC 32.8 G/DL (33.0-37.0); MEAN CORPUSCULAR VOLUME 97.1 FL (81.0-99.0); MEAN PLATELET VOLUME 8.6 FL (7.4-10.4); RBC DISTRIBUTION WIDTH 21.2 % (11.5-14.5); WHITE BLOOD CELL COUNT 5.8 /CUMM (4.8-10.8)
[2016-04-04 11:28] LABS: PLATELET COUNT 91 /CUMM (130-400)
[2016-04-04 12:00] VITALS: BP 104/64
[2016-04-04 14:04] VITALS: BP 102/64
--- NOTE | 2016-04-04 14:48 | PN- Ear, Nose & Throat ---
Surgical Brief Attending Note Brief Attending Note: Packing in place Balloon deflated Patient comfortable No bleeding OK for discharge, follow up in ENT office next week for packing removal Patient needs oral antibiotics Augmentin 8751 week
--- NOTE | 2016-04-04 15:49 | NUR ---
PHYSICAL THERAPY: RETURN TO PROVIDE Pt PT INTERVENTION FOR MOBILITY TRAINING; RECEIVED Pt SLEEPING SOUNDLY. WILL DEFER RX THIS PM; WILL CONT TO FOLLOW AND TREAT APPROPRIATE.
[2016-04-04 16:13] VITALS: BP 108/58
[2016-04-04 23:00] VITALS: BP 104/70
[2016-04-05 08:20] LABS: ABSOLUTE BASOPHIL COUNT 0 /CUMM (0.0-0.2); ABSOLUTE EOSINOPHIL COUNT 0 /CUMM (0.0-0.7); ABSOLUTE GRANULOCYTE CT 3.8 /CUMM (1.4-6.5); ABSOLUTE LYMPH COUNT 1.2 /CUMM (1.2-3.4); ABSOLUTE MONOCYTE COUNT 1.3 /CUMM (0.10-0.60); BASOPHIL % 0.3 % (0.0-2.0); EOSINOPHIL % 0.5 % (0-5); GRANULOCYTE % 60.2 % (42.2-75.2); MEAN CORPUSCULAR HGB 31.6 PG (27.0-31.0); MEAN CORPUSCULAR HGB CONC 32.7 G/DL (33.0-37.0); MEAN CORPUSCULAR VOLUME 96.6 FL (81.0-99.0); MEAN PLATELET VOLUME 9.1 FL (7.4-10.4); PLATELET COUNT 114 /CUMM (130-400); RED BLOOD CELL CT 3.11 /CUMM (4.20-5.40); WHITE BLOOD CELL COUNT 6.4 /CUMM (4.8-10.8)
[2016-04-05 08:37] VITALS: BP 118/76
--- NOTE | 2016-04-05 11:18 | PN- Housestaff ---
TIMO MENDOZA,[facility] 04/05/16 1118: Subjective Follow-up For: Dizziness Chest pain/NSTEMI Tele-Events Since Last Visit: Patient is off monitor Subjective: Patient was seen and examined this morning, vital signs are stable, patient remains sleepy hold morning, denied any complaint, refused to be discharged today and want to stay until tomorrow. No overnight events reported by the nurse or the patient. Review of Systems Constitutional: Reports: see HPI. Objective Last 24 Hrs of Vital Signs/I&O Vital Signs Date Time Temp Pulse Resp B/P Pulse O2 O2 Flow FiO2 Ox Delivery Rate 04/05 1735 97.6 88 20 110/80 93 Nasal 2.0L Cannula 04/05 1627 97.9 92 18 100/60 92 Nasal 2.0L Cannula 04/05 0909 118/76 04/05 0837 97.6 102 24 118/76 98 Nasal 2.0L Cannula 04/05 0800 95 Nasal 2.0L Cannula 04/05 0000 94 Nasal 2.0L Cannula 04/04 2300 102 104/70 04/04 2300 98.1 102 24 104/70 94 Nasal 2.0L Cannula Intake & Output 04/05 1600 04/05 0800 04/05 0000 Intake Total 480 400 Output Total Balance 480 400 Intake, Oral 480 400 Physical Exam General Appearance: Alert, Oriented X3, Cooperative, No Acute Distress Skin: No Rashes, No Breakdown HEENT: Atraumatic, PERRLA, EOMI, Mucous Membr. moist/pink Neck: Supple Cardiovascular: Regular Rate, Normal S1, Normal S2, No Murmurs Lungs: Clear to Auscultation, Normal Air Movement Abdomen: Normal Bowel Sounds, Soft, No Tenderness Neurological: Normal Speech, Strength at 5/5 X4 Ext, Normal Tone, Sensation Intact, Cranial Nerves 3-12 NL, Reflexes 2+ Extremities: No Clubbing, No Cyanosis, No Edema, Normal Pulses Assessment/Plan Assessment: This is a 80-year-old female with past medical history of lung cancer on Vimpat who recently had a change of medications were presented to the emergency department feeling weak and having positive troponins in the setting of known EKG changes. Troponins elevations are likely related to demand ischemia. We'll admit to telemetry and continue monitoring. #Rule out ACS Continuous cardiac monitoring for any arrhythmias Oxygen supplementation to keep oxygen saturation above 90 Troponin 0.17>>0.47>>0.33 no EKG changes Patient was started on IV heparin(stopped 03/31/16), aspirin, Plavix, atorvastatin , nitroglycerin paste, metoprolol 25 mg>>12.5 twice a day, lisinopril discontinued. Blood pressure systolic ranging between 110-112. 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 -The patient had 4 episodes of partial seizure of twitches of the face and right upper extremity, vital signs remained stable, labs didn't show any electrolyte abnormalities, neuro exam is benign, CT head without contrast was ordered urgent , neurology consultation was obtained and we added valproic acid extended release 500 twice a day in addition to the regular dose of keppra. #Epistaxis : 03/30/16 patient had an episode of epistaxis, patient is on heparin, H&H stable. ENT recomemnded to keep patient on keflex and nasal packing will be taken out in [place] office upon discharge. Referral would be provided. ENT specialist evaluated the patient yesterday with recommendation for discharge and for removal of nasal packing next week, patient refused to be discharged today "I don't feel he want to leave " and want to be discharged tomorrow morning. #Leg edema Continue Lasix 40 mg by mouth every other day Monitor ins and outs daily weights History of COPD TRC neb Continue Spiriva 1 puff daily Diet: Heart Healthy CODE: DNR/DNI DVT Prophylaxis Lovenox 40 units subcutaneous Problem List: 1. Visual disturbance 2. Lung cancer 3. Seizure Pain Ratin Pain Location: None Pain Goal: Pain 4 or less Pain Plan: Mild pain pathway Tomorrow's Labs & Rationales: CBC, CMP, magnesium, phosphorus LOPEZ RAMIREZ MD 04/05/16 1219: Attending MD Review Statement Attending Statement Attending MD Statement: examined this patient, discuss w/resident/PA/ECHO TECH, agreed w/resident/PA/ECHO TECH, reviewed EMR data (avail) Attending Assessment/Plan: 80F PMH lung cancer admitted with altered mental status and elevated troponin in the setting of demand ischemia. Patient is improved and back to baseline. Has been started on Keppra with no seizure activity. Course complicated by epistaxis, packed by ENT and currently stable. Hgb is stable, platelets improving. Plan - Continue ASA and Plavix - Continue Keppra and Dexamethasone - Continue Cephalex - Continue home medications - Will continue to monitor CBC. Patient will require STR on discharge. Anticipated discharge tomorrow.
--- NOTE | 2016-04-05 12:10 | PN- Cardiology ---
Subjective Subjective: Feeling well. No chest pain. No shortness of breath. No palpitations. No diaphoresis. Objective Vital Signs and I&Os Vital Signs Date Time Temp Pulse Resp B/P Pulse O2 O2 Flow FiO2 Ox Delivery Rate 04/05 0909 118/76 04/05 0837 97.6 102 24 118/76 98 Nasal 2.0L Cannula 04/05 0800 95 Nasal 2.0L Cannula 04/05 0000 94 Nasal 2.0L Cannula 04/04 2300 102 104/70 04/04 2300 98.1 102 24 10470 94 Nasal 2.0L Cannula 04/04 1613 97.8 95 20 108/58 94 Nasal Cannula 04/04 1600 95 Nasal 2.0L Cannula 04/04 1404 102/64 Intake & Output 04/05 1600 04/05 0800 04/05 0000 04/04 1600 04/04 0800 04/04 0000 Intake Total 480 400 160 300 Output Total Balance 480 400 160 300 Intake, Oral 480 400 160 300 Number 1 Bowel Movements Physical Exam: Gen: NAD HEENT: normal Lungs: clear to auscultation, normal resp. effort Heart: RRR, S1, S2, no murmurs Abdomen: Soft, nontender, no masses Extremities: No clubbing, cyanosis, or edema. Neuro: Alert and oriented x 3, cranial nerves intact Current Medications: Current Medications Sig/Kong Start time Last Medication Dose Route Stop Time Status Admin Acetaminophen 650 MG Q6P PRN 03/29 0845 AC PO Aspirin 243 MG DAILY 03/30 999 AC 04/05 PO 0909 Atorvastatin Calcium 40 MG QPM 03/29 2200 AC 04/04 PO 230 Cephalexin 500 MG BID 03/30 1000 AC 04/05 PO 0909 Clopidogrel Bisulfate 75 MG DAILY 03/30 1000 AC 04/05 PO 0909 Dexamethasone 0.5 MG BID 03/30 2200 AC 04/05 PO 0909 Docusate Sodium 100 MG BID 03/29 999 AC 04/05 PO 0909 Furosemide 20 MG 03/30 1000 AC 04/03 PO 1027 Heparin Sodium 100 UNIT ONCE PRN 03/31 0700 AC (Porcine) IV Levetiracetam 1,000 MG DAILY 04/02 1000 AC 04/05 PO 0910 Levetiracetam 1,500 MG QPM 04/01 2200 AC 04/04 PO 2300 Levothyroxine Sodium 0.1 MG DAILY AC 03/29 0823 AC 04/05 PO 0654 Lidocaine 1 ISIS DAILY PRN 03/30 2100 AC TOP Metoprolol Tartrate 12.5 MG BID 04/02 1000 AC 04/05 PO 0909 Morphine Sulfate 2 MG Q4P PRN 03/29 0845 DC IV Nitroglycerin 1 GM Q6 03/29 1320 AC 04/05 TOP 0648 Nitroglycerin 0.4 MG ONCE PRN 03/29 0815 AC SL Oxycodone/ 1 TAB Q6P PRN 03/29 0845 DC Acetaminophen PO Oxymetazoline HCl 2 SPRAY BID PRN 03/30 0215 AC PENELOPE Polyethylene Glycol 17 GM AT BEDTIME 03/29 2200 AC 04/04 PO 2301 Tiotropium [place] 1 PUF DAILY 03/29 1000 AC 04/05 INH 0910 Results Last 48 Hrs of Labs/Mics: Laboratory Tests 04/05/16 0700: CBC w Diff NO MAN DIFF REQ, RBC 3.11 L, MCV 96.6, MCH 31.6 H, RDW 21.0 H, MPV 9.1, Gran % 60.2, Lymphocytes % 18.3 L, Monocytes % 20.7 H, Eosinophils % 0.5, Basophils % 0.3, Absolute Granulocytes 3.8, Absolute Lymphocytes 1.2, Absolute Monocytes 1.3 H, Absolute Eosinophils 0, Absolute Basophils 0, PUBS MCHC 32.7 L 04/04/1615: CBC w Diff NO MAN DIFF REQ, RBC 3.10 L, MCV 97.1, MCH 31.8 H, RDW 21.2 H, MPV 8.6, Gran % 58.3, Lymphocytes % 19.4 L, Monocytes % 21.8 H, Eosinophils % 0.2, Basophils % 0.3, Absolute Granulocytes 3.4, Absolute Lymphocytes 1.1 L, Absolute Monocytes 1.3 H, Absolute Eosinophils 0, Absolute Basophils 0, PUBS MCHC 32.8 L 04/03/162044: Haptoglobin Pending 04/03/162044: CBC w Diff MAN DIFF ORDERED, RBC 3.16 L, MCV 95.8, MCH 30.9, RDW 20.7 H, MPV 9.2, Gran % 56.7, Lymphocytes % 20.4 L, Monocytes % 22.4 H, Eosinophils % 0.3, Basophils % 0.2, Absolute Granulocytes 3.6, Segmented Neutrophils 60, Absolute Lymphocytes 1.3, Lymphocytes 22, Monocytes 18 H, Absolute Monocytes 1.4 H, Absolute Eosinophils 0, Absolute Basophils 0, Nucleated RBCs 4 H, Polychromasia 1+, Poikilocytosis FEW, Anisocytosis 2+, Macrocytic Cells FEW, Stomatocytes FEW, PUBS MCHC 32.2 L, Retic Count 3.64 H Assessment/Plan Assessment/Plan Assessment: 1. Lung cancer 2. Coronary artery disease 3. Epistaxis 4. Mild troponin elevation, likely demand ischemia Plan: * Continue current cardiac medications. * Follow up with Dr. Stone in 1 to 2 weeks after discharge. Continue telemetry? No
[2016-04-05 16:27] VITALS: BP 100/60
--- NOTE | 2016-04-05 17:00 | NUR ---
NURSING EVENT NOTE; AT 1615, PT FOUND BY MST UNABLE TO SPEAK, NOT FOCUSING. UPON RN ENTERING ROOM, PT RESPONDING, MORE ORIENTED. PT STATES SHE WAS HAVING A SEIZURE, SIMILAR TO HER EPISODES AT HOME. AT 1630, PT HAD WITNESSED SEIZURE SEEN BY THIS RN AND BOTH SODA DISPENSER AND RESIDENT. PRESENTED RIGHT ARM TWITCHING AND R) SIDE OF FACE SPASMING. PT ALERT AND ORIENTED AFTER SEIZURE. ASSESSED BY MD. HAD ANOTHER BRIEF EPISODE AT 1638. PT GIVEN 0.5 MG IV ATIVAN. STAT LABS DRAWN. WILL CONTINUE TO MONITOR.
[2016-04-05 17:35] VITALS: BP 110/80
--- NOTE | 2016-04-05 18:12 | Event Note ---
See Addendum Event Note Event Note: The patient had 4 episodes of partial seizure of twitches of the face and right upper extremity, vital signs remained stable temperature 97.6, blood pressure 110/80, pulse 88, aspiration 20 with 93% saturation on 2 L oxygen, labs didn't show any electrolyte abnormalities, neuro exam is benign, CT head without contrast was ordered urgent, Dr. Mckeon the attending made aware. Neurology consultation was obtained and we added valproic acid extended release 500 twice a day in addition to the regular dose of keppra.
--- NOTE | 2016-04-05 19:53 | CT SCAN REPORT ---
EXAMINATION: CT HEAD WITHOUT CONTRAST CLINICAL INFORMATION: Multiple seizures. Lung cancer with brain metastases. Intracranial hemorrhage. COMPARISON: Multiple priors, most recent CT head dated 03/29/2016 and MRI head dated 03/30/2016. TECHNIQUE: Contiguous axial imaging was performed from the skull base to vertex without intravenous administration of contrast. DLP: 600.71 mGy-cm FINDINGS: The examination is limited secondary to patient motion. There is no acute intracranial hemorrhage. The previously identified area of hypoattenuation in the high left frontal lobe with associated central calcification is not significantly changed since the prior examination and consistent with the previously identified metastatic lesion. Small hypoattenuating areas are seen within the bilateral basal ganglia, consistent with lacunes. The wilkinson-white matter differentiation is otherwise well preserved. No extra-axial fluid collections identified. There is no midline shift. The basal cisterns are patent. The ventricles and sulci are within normal limits. The calvarium is intact. An air-fluid level is seen within the right maxillary sinus. There is partial opacification of the right ethmoid air cells. A nasoenteric tube is partially visualized. IMPRESSION: 1. No acute intracranial hemorrhage or mass effect. 2. Unchanged area of hypoattenuation with central calcification within the high left frontal lobe, consistent with the previously identified metastatic focus. No new intracranial lesion. 3. Air-fluid level within the right maxillary sinus as well as partial opacification of the right ethmoid air cells, which can be seen in acute sinusitis.
--- NOTE | 2016-04-05 22:58 | NUR ---
NURSING NOTE; PT STATES TOTAL OF 12 FOCAL SEIZURES SINCE 1614. ALERT THROUGHOUT. ABLE TO COMMUNICATE. PT STARTED ON PO DEPAKOTE IN ADDITION TO PO KEPPRA. RESTING IN BED. VSS.
[2016-04-06 01:03] VITALS: BP 102/54
[2016-04-06 08:07] VITALS: BP 82/52
--- NOTE | 2016-04-06 08:29 | NUR ---
PT REMAINED DROWSY/AROUSABLE THROUGHOUT THIS SHIFT HAVING ONE WITNESSED FOCAL SEIZURE WHICH INCLUDED R FACIAL AND R ARM TWITCHING. UPON ASSESSMENT THIS AM PT FOUND TO BE HYPOTENSIVE AT 82/52. NITROBID WAS REMOVED FROM LCW, WHICH WAS PLACED THIS AM AROUND 0630 WHEN PT'S BP WAS 110/78. ONCOMING NURSE MADE AWARE OF CURRENT BP AND NEUROLOGICAL STATUS, JULIEN MILLRE MD AWARE. WILL CONTINUE TO MONITOR.
--- NOTE | 2016-04-06 08:47 | PN- Housestaff ---
PAUL MENDOZA,[facility] 04/06/16 0840: Subjective Follow-up For: Facial and right arm twitching Dizziness Chest pain/NSTEMI Tele-Events Since Last Visit: off monitor Subjective: Seen and examined this morning. She was lying comfortably in bed in no acute distress. She reported feeling very tired and having repeated episodes of twitching in his right upper extremity and face. She has been afebrile, blood pressure systolic has been ranging between 82-102, pulse 94-104, remains on 2 L of nasal cannula oxygen satting mid 90s. Review of Systems Constitutional: Denies: chills, fever. Cardiovascular: Denies: chest pain, palpitations. Respiratory: Denies: cough, short of breath, sputum production. Gastrointestinal: Denies: abdominal pain, constipation, diarrhea, nausea, vomiting. Genitourinary: Denies: dysuria, frequency. Objective Last 24 Hrs of Vital Signs/I&O Vital Signs Date Time Temp Pulse Resp B/P Pulse O2 O2 Flow FiO2 Ox Delivery Rate 04/06 0807 97.4 104 20 82/52 93 Nasal 2.0L Cannula 04/06 0103 97.6 94 18 102/54 95 04/06 0000 Nasal 2.0L Cannula 04/05 2125 104 126/78 04/05 1735 97.6 88 20 110/80 93 Nasal 2.0L Cannula 04/05 1627 97.9 92 18 100/60 92 Nasal 2.0L Cannula 04/05 1600 93 Nasal 2.0L Cannula 04/05 0909 118/76 Intake & Output 04/06 1600 04/06 0800 04/06 0000 Intake Total 520 Output Total 150 200 Balance -150 320 Intake, Oral 520 Number 1 0 Bowel Movements Output, Urine 150 200 Physical Exam General Appearance: Alert, Cooperative Cardiovascular: Regular Rate, Normal S1, Normal S2, No Murmurs Lungs: Clear to Auscultation, Normal Air Movement Abdomen: Normal Bowel Sounds, Soft, No Tenderness Neurological: Normal Speech, Strength at 5/5 X4 Ext, Cranial Nerves 3-12 NL Extremities: No Clubbing, No Cyanosis, No Edema Current Medications: Current Medications Sig/Kong Start time Last Medication Dose Route Stop Time Status Admin Acetaminophen 650 MG Q6P PRN 03/29 0845 AC PO Aspirin 243 MG DAILY 03/30 1000 AC 04/05 PO 0909 Atorvastatin Calcium 40 MG QPM 03/29 2200 AC 04/05 PO 2125 Cephalexin 500 MG BID 03/30 1000 AC 04/05 PO 2124 Clopidogrel Bisulfate 75 MG DAILY 03/30 1000 AC 04/05 PO 0909 Dexamethasone 0.5 MG BID 03/30 2200 AC 04/05 PO 212 Divalproex Sodium 500 MG BID 04/05 1815 AC 04/05 PO 1904 Docusate Sodium 100 MG BID 03/29 1000 AC 04/05 PO 0909 Furosemide 20 MG 03/30 1000 AC 04/03 PO 1027 Heparin Sodium 100 UNIT ONCE PRN 03/31 0700 AC (Porcine) IV Levetiracetam 1,000 MG DAILY 04/02 1000 AC 04/05 PO 0910 Levetiracetam 1,500 MG QPM 04/01 2200 AC 04/05 PO 212 Levothyroxine Sodium 0.1 MG DAILY AC 03/29 0823 AC 04/06 PO 0610 Lidocaine 1 ISIS DAILY PRN 03/30 2100 AC TOP Lorazepam 0.5 MG ONCE ONE 04/05 1645 DC 04/05 IV 04/05 1646 1636 Magnesium Sulfate 1 GM ONCE ONE 04/05 1645 CAN Dextrose/Water 100 ML IV 04/05 2044 Metoprolol Tartrate 12.5 MG BID 04/02 1000 AC 04/05 PO 2125 Morphine Sulfate 2 MG Q4P PRN 03/29 0845 DC IV Nitroglycerin 1 GM Q6 03/29 1320 AC 04/06 TOP 0609 Nitroglycerin 0.4 MG ONCE PRN 03/29 0815 AC SL Oxycodone/ 1 TAB Q6P PRN 03/29 0845 DC Acetaminophen PO Oxymetazoline HCl 2 SPRAY BID PRN 03/30 0215 AC PENELOPE Polyethylene Glycol 17 GM AT BEDTIME 03/29 2200 AC 04/05 PO 2125 Potassium Chloride 10 MEQ Q1H 04/05 1645 CAN IV 04/05 1746 Tiotropium [place] 1 PUF DAILY 03/29 1000 AC 04/05 INH 0910 Last 24 Hrs of Lab/Pierre Results Last 24 Hrs of Labs/Mics: Laboratory Tests 04/05/16 1645: Anion Gap 6, Estimated GFR > 60, BUN/Creatinine Ratio 22.0, Calcium 8.5, Albumin 2.5 L, Prolactin Pending Assessment/Plan Assessment: This is a 80-year-old female with past medical history of lung cancer on Vimpat who recently had a change of medications were presented to the emergency department feeling weak and having positive troponins in the setting of known EKG changes. Troponins elevations are likely related to demand ischemia. We'll admit to telemetry and continue monitoring. #Rule out ACS Continuous cardiac monitoring for any arrhythmias Oxygen supplementation to keep oxygen saturation above 90 Troponin 0.17>>0.47>>0.33 no EKG changes Patient was started on IV heparin(stopped 03/31/16), aspirin, Plavix, atorvastatin , nitroglycerin paste, metoprolol 25 mg>>12.5 twice a day, lisinopril discontinued. Blood pressure systolic ranging between 110-112. 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 Over weekend, patient had episodes of right arm and facial twitching, Depakote 500 mg twice a day was added to her current regimen. Please see event note further details #Epistaxis : 03/30/16 patient had an episode of epistaxis, H&H low but stable s/p 1PRBC transfusion on 04/03. ENT recomemnded to keep patient on keflex and nasal packing will be taken out in [place] office upon discharge. Referral would be provided. #Leg edema lasix discontinued. History of COPD TRC neb Continue Spiriva 1 puff daily Diet: Heart Healthy CODE: DNR/DNI DVT Prophylaxis Lovenox 40 units subcutaneous Problem List: 1. Seizure 2. CVA (cerebral vascular accident) 3. Lung cancer Pain Ratin Pain Location: none Pain Goal: Remain pain free Pain Plan: mild pp Tomorrow's Labs & Rationales: yumiko TAYLOR MD,NATHALIA 04/06/16 1258: Attending MD Review Statement Attending Statement Attending MD Statement: examined this patient, discuss w/resident/PA/EMERGENCY MEDICAL TECHNICIAN, agreed w/resident/PA/EMERGENCY MEDICAL TECHNICIAN, reviewed EMR data (avail), discussed with nursing, discussed with case mgmt, amended to note Attending Assessment/Plan: Patient seen and examined. Yesterday patient reported several episodes of partial seizures some of which were witnessed by his staff. This morning she is drowsy, mildly confused,. She is able to follow simple commands. She has no lateralizing signs on physical examination. 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 She has been started on Depakote following discussion with the neurology service over the phone yesterday. Head CT yesterday showed no acute pathology. She did have an MRI during this admission that actually should decrease in her metastatic disease. Recommendations: -Obtain EEG. Maintain seizure precautions. Neuro watch every 4 hours. -Her hemoglobin level has been stable since transfusion. Nasal packing remains in place with no external bleeding noted. Nasal packing will remain in place to she follows up with the ENT service as an outpatient. She will continue on Keflex until evaluation by the ENT service. -Blood pressure has been on the low side. She had a systolic blood pressure in the 80s desponded. Recommend discontinuing her Lasix and metoprolol for now monitoring her blood pressure closely.
--- NOTE | 2016-04-06 09:37 | NUR ---
PHYSICAL THERAPY: PT REFUSED PT TODAY DUE TO EXTREME FATIGUE, RN AWARE
[2016-04-06 12:14] LABS: ABSOLUTE BASOPHIL COUNT 0 /CUMM (0.0-0.2); ABSOLUTE EOSINOPHIL COUNT 0.1 /CUMM (0.0-0.7); ABSOLUTE GRANULOCYTE CT 4.9 /CUMM (1.4-6.5); ABSOLUTE LYMPH COUNT 1.6 /CUMM (1.2-3.4); ABSOLUTE MONOCYTE COUNT 1.4 /CUMM (0.10-0.60); BASOPHIL % 0.1 % (0.0-2.0); EOSINOPHIL % 1.1 % (0-5); GRANULOCYTE % 60.9 % (42.2-75.2); HEMATOCRIT 31.5 % (37-47); MEAN CORPUSCULAR HGB 31.2 PG (27.0-31.0); MEAN CORPUSCULAR HGB CONC 31.9 G/DL (33.0-37.0); MEAN CORPUSCULAR VOLUME 97.8 FL (81.0-99.0); MEAN PLATELET VOLUME 8.8 FL (7.4-10.4); PLATELET COUNT 148 /CUMM (130-400); RBC DISTRIBUTION WIDTH 21.2 % (11.5-14.5); RED BLOOD CELL CT 3.22 /CUMM (4.20-5.40)
--- NOTE | 2016-04-06 12:27 | PN- Ear, Nose & Throat ---
Subjective Subjective: CALLED BY HOSPITAL TO MY OFFICE TO ALERT THAT PATIENT IS NOT BEING DISCHARGED TODAY, AND THUS CANNOT COME TO OFFICE FOR PACKING REMOVAL. SHE APPARENTLY HAD PRBC TRANSFUSION LATE LAST WEEK NO BLEEDING FROM FRONT OF NOSE OR FROM BACK OF NOSE, WITH PACKING IN PLACE PATIENT STATES SHE HAD 13 SEIZURES YESTERDAY, AND FELT ONE EVEN WHILE I WAS SPEAKING WITH HER PACKING IS DRY NO BLOOD FROM NOSE Review of Systems: NONCONTRIBUTORY Objective Vital Signs and I&Os Vital Signs Date Time Temp Pulse Resp B/P Pulse O2 O2 Flow FiO2 Ox Delivery Rate 04/06 0807 97.4 104 20 82/52 93 Nasal 2.0L Cannula 04/06 0103 97.6 94 18 102/54 95 04/06 0000 Nasal 2.0L Cannula 04/05 2125 104 126/78 04/05 1735 97.6 88 20 110/80 93 Nasal 2.0L Cannula 04/05 1627 97.9 92 18 100/60 92 Nasal 2.0L Cannula 04/05 1600 93 Nasal 2.0L Cannula Intake & Output 04/06 1600 04/06 0800 04/06 0000 04/05 1600 04/05 0800 04/05 0000 Intake Total 520 480 400 Output Total 150 200 Balance -150 320 480 400 Intake, Oral 520 480 400 Number 1 0 Bowel Movements Output, Urine 150 200 Physical Exam: LAYING IN BED HAD HER SIT UP STATED SHE FELT LIKE A SEIZURE WAS PRESENT PACKING REMOVED FROM RIGHT NOSE WITHOUT DIFFICULTY NO BLEEDING ENSUED NO NASAL INJURY REMAINDER OF ENT EXAM EARS, THROAT, NECK, UNREMARKABLE Results Last 48 Hours of Labs: Laboratory Tests 04/06 04/05 1150 1645 Chemistry Sodium (137 - 145 mmol/L) Pending 142 Potassium (3.5 - 5.1 mmol/L) Pending 3.7 Chloride (98 - 107 mmol/L) Pending 99 Carbon Dioxide (22 - 30 mmol/L) Pending 36 H Anion Gap (5 - 16) Pending 6 BUN (7 - 17 mg/dL) Pending 11 Creatinine (0.5 - 1.0 mg/dL) Pending 0.5 Estimated GFR (>60 ml/min) > 60 BUN/Creatinine Ratio (7 - 25 %) Pending 22.0 Calcium (8.4 - 10.2 mg/dL) 8.5 Phosphorus Pending Magnesium Pending Albumin (3.5 - 5.0 g/dL) 2.5 L Prolactin (3.0 - 18.6 ng/mL) Pending 22.8 H Hematology CBC w Diff NO MAN DIFF REQ WBC (4.8 - 10.8 /CUMM) 8.0 RBC (4.20 - 5.40 /CUMM) 3.22 L Hgb (12.0 - 16.0 G/DL) 10.1 L Hct (37 - 47 %) 31.5 L MCV (81.0 - 99.0 FL) 97.8 MCH (27.0 - 31.0 PG) 31.2 H RDW (11.5 - 14.5 %) 21.2 H Plt Count (130 - 400 /CUMM) 148 MPV (7.4 - 10.4 FL) 8.8 Gran % (42.2 - 75.2 %) 60.9 Lymphocytes % (20.5 - 51.1 %) 19.8 L Monocytes % (1.7 - 9.3 %) 18.1 H Eosinophils % (0 - 5 %) 1.1 Basophils % (0.0 - 2.0 %) 0.1 Absolute Granulocytes (1.4 - 6.5 /CUMM) 4.9 Absolute Lymphocytes (1.2 - 3.4 /CUMM) 1.6 Absolute Monocytes (0.10 - 0.60 /CUMM) 1.4 H Absolute Eosinophils (0.0 - 0.7 /CUMM) 0.1 Absolute Basophils (0.0 - 0.2 /CUMM) 0 PUBS MCHC (33.0 - 37.0 G/DL) 31.9 L 04/05 0700 Hematology CBC w Diff NO MAN DIFF REQ WBC (4.8 - 10.8 /CUMM) 6.4 RBC (4.20 - 5.40 /CUMM) 3.11 L Hgb (12.0 - 16.0 G/DL) 9.8 L Hct (37 - 47 %) 30.0 L MCV (81.0 - 99.0 FL) 96.6 MCH (27.0 - 31.0 PG) 31.6 H RDW (11.5 - 14.5 %) 21.0 H Plt Count (130 - 400 /CUMM) 114 L MPV (7.4 - 10.4 FL) 9.1 Gran % (42.2 - 75.2 %) 60.2 Lymphocytes % (20.5 - 51.1 %) 18.3 L Monocytes % (1.7 - 9.3 %) 20.7 H Eosinophils % (0 - 5 %) 0.5 Basophils % (0.0 - 2.0 %) 0.3 Absolute Granulocytes (1.4 - 6.5 /CUMM) 3.8 Absolute Lymphocytes (1.2 - 3.4 /CUMM) 1.2 Absolute Monocytes (0.10 - 0.60 /CUMM) 1.3 H Absolute Eosinophils (0.0 - 0.7 /CUMM) 0 Absolute Basophils (0.0 - 0.2 /CUMM) 0 PUBS MCHC (33.0 - 37.0 G/DL) 32.7 L Assessment/Plan Assessment/Plan PATIENT WITH EPISTAXIS, WHILE ON ANTICOAGULATION NOW WITH PACKING IN FOR 1 WEEK UNABLE TO COME TO OFFICE FOR PACKING REMOVAL. THUS, I REMOVED PACKING AT BEDSIDE FROM RIGHT NOSE WITHOUT DIFFICULTY OR INCIDENT. NO BLEEDING ENSUED DO NOT FEEL THAT ANY SIGNIFICANT BLOOD LOSS IS COMING FROM HER NOSE TRY TO CHANGE NASAL PRONGS TO FACEMASK OR FACE TENT, THE PRONGS WILL DESSICATE NASAL MEMBRANES AND MAY SET HER UP FOR ANOTHER EPISTAXIS EPISODE. AVOID NASAL STRAIN OR TRAUMA (PICKING, BLOWING, STRAINING, SNEEZING) NO NEED FOR PATIENT TO FOLLOW UP IN MY OFFICE UNLESS ANY OTHER ISSUES ARISE. THANKS TIFFANIE RAMIREZ MD, FACS Core Measures/Miscellaneous Venous Thromboembolism VTE Risk Factors: Age > 40 VTE Contraindications: No Contraindications VTE Prophylaxis Ordered Inpt: Pharm- Lovenox VTE Diagnosis: No VTE Type: NONE VTE Confirmed by (Test): NONE Beta Genet Is Beta Genet a Home Med? No Antibiotics Is Patient on Antibiotics? Yes Attending MD Review Statement Attending Statement Attending MD Statement: examined this patient, discussed w/nursing
--- NOTE | 2016-04-06 13:53 | Transfer of Care Summary ---
Hospital Course Course Hospital Course: This is a 80-year-old female with past medical history of lung cancer s/p brain mets currently on dexamethasone, keppra and Vimpat(held upon current admission) presented to the emergency department feeling weak, dizzy and had double vision, was found to have elevated troponins in the setting of no EKG changes. Patient was admitted to telemetry floor and managed for following conditions: #Rule out ACS Continuous cardiac monitoring for any arrhythmias Oxygen supplementation to keep oxygen saturation above 90 Troponin 0.17>>0.47>>0.33 no EKG changes Patient was started on IV heparin(stopped 03/31/16), aspirin, Plavix, atorvastatin , nitroglycerin paste, metoprolol 25 mg>>12.5 twice a day which was discontinued 04/06 as she was hypotensive, lisinopril was also discontinued. 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 Over weekend, patient had episodes of right arm and facial twitching, Depakote 500 mg twice a day was added to her current regimen. Neurochecks Q4, seizure precautions.Please see event note further details. please confirm if depakote needs to be continued upon discharge?? #Epistaxis : 03/30/16 patient had an episode of epistaxis,heparin drip was stopped after 48 hours of initiation, H&H dropped on 04/03 for which she recived 1 unit of PRBCs. H&H ever since low but stable. ENT recomemnded to keep patient on keflex till nasal packing removal. Nasal packing removed 04/06, please confirm for how long patient would need antibiotics , patient does not need any further ENT follow up if she remains stable. #Leg edema Lasix discontinued. History of COPD TRC neb Continue Spiriva 1 puff daily Diet: Heart Healthy CODE: DNR/DNI DVT Prophylaxis Lovenox 40 units subcutaneous Assessment/Plan: 1. Nasal packing removed 04/06, please confirm for how long patient would need antibiotics, patient does not need any further ENT follow up if she remains stable. 2. metoprolol 12.5 twice a day was discontinued 04/06 as she was hypotensive. See if we can restart it at low dose. 3.Over weekend, patient had episodes of right arm and facial twitching, Depakote 500 mg twice a day was added to her current regimen. Neurochecks Q4, seizure precautions.Please see event note further details. please confirm if depakote needs to be continued upon discharge?? Follow EEG report and neuro recs. 4.Lasix discontinued for pt was hypotensive. please assess when can be resumed.
[2016-04-06 15:30] VITALS: BP 116/64
--- NOTE | 2016-04-06 15:56 | PN- Cardiology ---
Subjective Subjective: * Patient is doing well but still lethargic. Objective Vital Signs and I&Os Vital Signs Date Time Temp Pulse Resp B/P Pulse O2 O2 Flow FiO2 Ox Delivery Rate 04/06 0807 97.4 104 20 82/52 93 Nasal 2.0L Cannula 04/06 0103 97.6 94 18 102/54 95 04/06 0000 Nasal 2.0L Cannula 04/05 2125 104 126/78 04/05 1735 97.6 88 20 110/80 93 Nasal 2.0L Cannula 04/05 1627 97.9 92 18 100/60 92 Nasal 2.0L Cannula 04/05 1600 93 Nasal 2.0L Cannula Intake & Output 04/06 1600 04/06 0800 04/06 0000 04/05 1600 04/05 0800 04/05 0000 Intake Total 520 480 400 Output Total 150 200 Balance -150 320 480 400 Intake, Oral 520 480 400 Number 1 0 Bowel Movements Output, Urine 150 200 Physical Exam: General: WD/ WN female in NAD; lethargic but awake and oriented x 3 Neck: no JVD, no carotid bruit Heart: RRR w/o murmur Lungs: no crackles or wheezing Extemities: no edema Assessment/Plan Assessment/Plan * This patient is doing well from a cardiac standpoint. Her BP is borderline and her beta ángel was stopped. She is currently pain free and without any evidence of decompensated congrestive heart failure. Continue telemetry? Yes
[2016-04-06 21:05] VITALS: BP 108/58
--- NOTE | 2016-04-06 21:20 | ELECTROENCEPHALOGRAM REPORT ---
Electroencephalogram Report Electroencephalogram Results Date of service: 04/06/16 Attending MD: NATHALIA TAYLOR M.D Deburrer: Loco EEG Number: [id number] Test Utilizes: Test Utilizes a 10-20 system, 21 lead, 18 channel digital recording Pertinent Hx/Physical/Neuro Findings/Clin Diagnosis: Patient with new onset seizures. Found to have brain metastases. Inpatient Medications: Current Medications Sig/Kong Start time Last Medication Dose Route Stop Time Status Admin Acetaminophen 650 MG Q6P PRN 03/29 0845 AC PO Aspirin 243 MG DAILY 03/30 1000 AC 04/06 PO 1050 Atorvastatin Calcium 40 MG QPM 03/29 2200 AC 04/05 PO 2125 Cephalexin 500 MG BID 03/30 1000 AC 04/06 PO 1050 Clopidogrel Bisulfate 75 MG DAILY 03/30 1000 AC 04/06 PO 1050 Dexamethasone 0.5 MG BID 03/30 2200 AC 04/06 PO 1050 Divalproex Sodium 500 MG BID 04/05 1815 AC 04/06 PO 1050 Docusate Sodium 100 MG BID 03/29 1000 AC 04/06 PO 1050 Furosemide 20 MG WEDNESDAY WED THURSDAY 03/30 1000 DC 04/03 PO 1027 Heparin Sodium 100 UNIT ONCE PRN 03/31 0700 AC (Porcine) IV Levetiracetam 1,000 MG DAILY 04/02 1000 AC 04/06 PO 1051 Levetiracetam 1,500 MG QPM 04/01 2200 AC 04/05 PO 2125 Levothyroxine Sodium 0.1 MG DAILY AC 03/29 0823 AC 04/06 PO 0610 Lidocaine 1 ISIS DAILY PRN 03/30 2100 AC TOP Lorazepam 2 MG .STK-MED ONE 04/06 1523 DC IV 04/06 1524 Magnesium Sulfate 2 GM ONCE ONE 04/06 1315 CAN Dextrose/Water 250 ML IV 04/06 1714 Magnesium Sulfate 1 GM ONCE ONE 04/06 1315 DC 04/06 Dextrose/Water 100 ML IV 04/06 1714 1400 Metoprolol Tartrate 12.5 MG BID 04/02 1000 DC 04/05 PO 2125 Nitroglycerin 1 GM Q6 03/29 1320 AC 04/06 TOP 1749 Nitroglycerin 0.4 MG ONCE PRN 03/29 0815 AC SL Oxymetazoline HCl 2 SPRAY BID PRN 03/30 0215 AC PENELOPE Polyethylene Glycol 17 GM AT BEDTIME 03/29 2200 AC 04/05 PO 2125 Tiotropium [place] 1 PUF DAILY 03/29 1000 AC 04/06 INH 1051 Interpretation: The recording demonstrates a mild diminution of the expected frequency gradient, due to relative slowing within the frontal regions. The slowing is more evident within the right frontal region, where the amplitude is also lower. There are no paroxysmal sharps or spikes. Occasional muscle twitching is noted without any EEG correlates. The posterior dominant rhythm is 9 hertz bilaterally. Impression: An overall normal EEG with slight background slowing mainly seen within the right frontal regions, but otherwise without any ictal or interictal epileptiform features.
--- NOTE | 2016-04-06 22:22 | NUR ---
NURSE NOTE: PT ARRIVED OT FLOOR TO FLOOR VIA TRANSPORT @ 2100. PT SLEEPING AT TIME BUT AAOX3, 2LNC. PT HAS A CHEST WALL PORT. SEIZURE PX IN PLACE, CALL SAEZ IN REACH, BED LOWEST, BED ALARM. PT VSS. WILL CONTINUE TO MONITOR.
--- NOTE | 2016-04-06 23:27 | NUR ---
nurse note:PER MD ORDER, PT BEING TRANSFERRED BACK TO TELEMETRY WITH [employer] TEAM MEMBER.
[2016-04-06 23:54] VITALS: BP 100/70
--- NOTE | 2016-04-07 06:54 | PN- Housestaff ---
Subjective Follow-up For: seizures demand ischemia Tele-Events Since Last Visit: SR-ST 100-103 No events Subjective: Pt was seen and examined this morning. She was lying on the bed comfortably, although appears very tired and sleepy. She did not like the lights turned on, which is normal for her. She complained that she is not getting much sleep in the hospital. She reported 20 seizure episodes in 2 days, the last one being 30 minutes prior to our examination. It lasts for about 1 minute. EEG was normal. I called the neurology service and requested Dr. Dasilva/ neurologist nutritionists to see her today. Depakote 500 bid was added but seizure episodes persisted. On ROS, she reported 1 sec episode of double vision yesterday, cough of 4 days with white sputum. Denies fever, chills, chest pain, shortness of breath, abdominal pain, constipation, last bm yesteday night, diarrhea. Review of Systems Constitutional: Denies: chills, fever. EENTM: Reports: double vision. Cardiovascular: Denies: chest pain, palpitations. Respiratory: Reports: cough, sputum production. Denies: short of breath. Gastrointestinal: Denies: abdominal pain, bloating, constipation, diarrhea. Objective Last 24 Hrs of Vital Signs/I&O Vital Signs Date Time Temp Pulse Resp B/P Pulse O2 O2 Flow FiO2 Ox Delivery Rate 04/07 0000 96 Nasal 2.0L Cannula 04/06 2354 98.3 104 32 100/70 94 Nasal 2.0L Cannula 04/06 2105 98.6 102 21 108/58 96 Nasal 2.0L Cannula 04/06 1600 94 Nasal 2.0L Cannula 04/06 1530 98.1 102 20 116/64 94 Nasal 2.0L Cannula Intake & Output 04/07 1600 04/07 0800 04/07 0000 Intake Total 200 100 Output Total Balance 200 100 Intake, Oral 200 100 Physical Exam General Appearance: Alert, Oriented X3, Cooperative, No Acute Distress Skin: No Significant Lesion HEENT: Atraumatic Cardiovascular: Regular Rate, Normal S1, Normal S2, No Murmurs, Gallops, Rubs Lungs: Clear to Auscultation, Normal Air Movement Abdomen: Normal Bowel Sounds, Soft, No Tenderness Neurological: Normal Tone, mild aphasia Current Medications: Current Medications Sig/Kong Start time Last Medication Dose Route Stop Time Status Admin Acetaminophen 650 MG Q6P PRN 03/29 0845 AC PO Al Hydroxide/Mg 30 ML ONCE ONE 04/06 2215 CAN Hydroxide PO 04/06 2216 Aspirin 243 MG DAILY 03/30 1000 AC 04/06 PO 1050 Atorvastatin Calcium 40 MG QPM 03/29 2200 AC 04/06 PO 2133 Cephalexin 500 MG BID 03/30 1000 AC 04/06 PO 2134 Clopidogrel Bisulfate 75 MG DAILY 03/30 1000 AC 04/06 PO 1050 Dexamethasone 0.5 MG BID 03/30 2200 AC 04/06 PO 2135 Divalproex Sodium 500 MG BID 04/05 1815 AC 04/06 PO 2134 Docusate Sodium 100 MG BID 03/29 1000 AC 04/06 PO 2134 Furosemide 20 MG 03/30 1000 DC 04/03 PO 1027 Heparin Sodium 5,000 UNIT .STK-MED ONE 04/06 1615 DC (Porcine) IV 04/06 1616 Heparin Sodium 100 UNIT ONCE PRN 03/31 0700 AC (Porcine) IV Levetiracetam 1,000 MG DAILY 04/02 1000 AC 04/06 PO 1051 Levetiracetam 1,500 MG QPM 04/01 2200 AC 04/06 PO 2134 Levothyroxine Sodium 0.1 MG DAILY AC 03/29 0823 AC 04/07 PO 0618 Lidocaine 1 ISIS DAILY PRN 03/30 2100 AC TOP Lorazepam 2 MG .STK-MED ONE 04/06 1523 DC IV 04/06 1524 Magnesium Sulfate 2 GM ONCE ONE 04/06 1315 CAN Dextrose/Water 250 ML IV 04/06 1714 Magnesium Sulfate 1 GM ONCE ONE 04/06 1315 DC 04/06 Dextrose/Water 100 ML IV 04/06 1714 1400 Methylprednisolone 40 MG .STK-MED ONE 04/06 1615 DC IM 04/06 1616 Methylprednisolone 40 MG .STK-MED ONE 04/06 1615 DC IM 04/06 1616 Metoprolol Tartrate 12.5 MG BID 04/02 1000 DC 04/05 PO 2125 Nitroglycerin 1 GM Q6 03/29 1320 AC 04/06 TOP 1749 Nitroglycerin 0.4 MG ONCE PRN 03/29 0815 AC SL Oxymetazoline HCl 2 SPRAY BID PRN 03/30 0215 AC PENELOPE Polyethylene Glycol 17 GM AT BEDTIME 03/29 2200 AC 04/06 PO 2133 Tiotropium [place] 1 PUF DAILY 03/29 1000 AC 04/06 INH 1051 Last 24 Hrs of Lab/Pierre Results Last 24 Hrs of Labs/Mics: Laboratory Tests 04/07 04/06 0614 1150 Chemistry Sodium (137 - 145 mmol/L) 142 Potassium (3.5 - 5.1 mmol/L) 3.5 Chloride (98 - 107 mmol/L) 98 Carbon Dioxide (22 - 30 mmol/L) 39 H Anion Gap (5 - 16) 5 BUN (7 - 17 mg/dL) 10 Creatinine (0.5 - 1.0 mg/dL) 0.5 Estimated GFR (>60 ml/min) > 60 BUN/Creatinine Ratio (7 - 25 %) 20.0 Phosphorus (2.5 - 4.5 mg/dL) 3.7 3.4 Magnesium (1.6 - 2.3 mg/dL) 1.7 1.2 L Prolactin (3.0 - 18.6 ng/mL) 48.3 H Hematology CBC w Diff NO MAN DIFF REQ MAN DIFF ORDERED WBC (4.8 - 10.8 /CUMM) 6.9 8.0 RBC (4.20 - 5.40 /CUMM) 3.07 L 3.22 L Hgb (12.0 - 16.0 G/DL) 9.8 L 10.1 L Hct (37 - 47 %) 30.1 L 31.5 L MCV (81.0 - 99.0 FL) 98.2 97.8 MCH (27.0 - 31.0 PG) 31.8 H 31.2 H RDW (11.5 - 14.5 %) 22.0 H 21.2 H Plt Count (130 - 400 /CUMM) 150 148 MPV (7.4 - 10.4 FL) 8.7 8.8 Gran % (42.2 - 75.2 %) 65.0 60.9 Lymphocytes % (20.5 - 51.1 %) 19.3 L 19.8 L Monocytes % (1.7 - 9.3 %) 15.2 H 18.1 H Eosinophils % (0 - 5 %) 0.2 1.1 Basophils % (0.0 - 2.0 %) 0.3 0.1 Absolute Granulocytes (1.4 - 6.5 /CUMM) 4.5 4.9 Segmented Neutrophils (42.2 - 75.2 %) 54 Band Neutrophils (0.0 - 5.0 %) 3 Absolute Lymphocytes (1.2 - 3.4 /CUMM) 1.3 1.6 Lymphocytes (20.5 - 51.1 %) 19 L Monocytes (1.7 - 9.3 %) 21 H Absolute Monocytes (0.10 - 0.60 /CUMM) 1.0 H 1.4 H Eosinophils (0 - 5.0 %) 1 Absolute Eosinophils (0.0 - 0.7 /CUMM) 0 0.1 Absolute Basophils (0.0 - 0.2 /CUMM) 0 0 Metamyelocytes (0.0 - 1.0 %) 2 H Nucleated RBCs (0.0 - 0.0 /100WBC) 3 H Platelet Estimate (ADEQUATE) ADEQUATE Poikilocytosis 1+ Anisocytosis 2+ Macrocytic Cells 1+ PUBS MCHC (33.0 - 37.0 G/DL) 32.4 L 31.9 L Assessment/Plan Assessment: This is a 80-year-old female with past medical history of 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 Troponins elevations are likely related to demand ischemia. # Lung cancer with mets to left frontal lobe, with twitches vs focal seizures - Patient was found to be having altered mental status upon admission, but in setting of lung cancer with metastasis to brain. MRI showed decrease in size of brain metastasis lesion, neurology has recommended to increase the dose of Keppra but hold off of Vimpat for now and to have patient follow-up appointment discharge. - On 04/05, patient had episodes of right arm and facial twitching, Depakote 500 mg twice a day was added to her current regimen. - EEG normal * Follow up neurology input * Continue dexamethasone (home dose 1 mg in am, 0.5 mg in pm) * Continue increased dose of keppra: 1000 in am, 1500 in pm * Continue to hold vimpat * Depakote 500 mg BID started on 04/06, increased to 1000 bid on 04/07 pm * Follow up LFt and valproic level on 04/08 at 8am * PT recommends STR however pt's family is adament about not sending pt to any half-way facility # Low blood pressure in the settings of low PO intake, lethargy possibly due to overmedication? failure to thrive? * Appreciate nutrition consult * Consider IV fluids if BP worsens * Consider appetite stimulant # Demand ischemia resolved - Troponin 0.17>>0.47>>0.33 no new EKG changes - Patient was started on IV heparin(stopped 03/31/16), aspirin, Plavix, atorvastatin, nitroglycerin paste * Continuous cardiac monitoring for any arrhythmias * Oxygen supplementation to keep oxygen saturation above 90. Home O2 2L * Metoprolol and lisinopril started this admission but has been discontinued due to low blood pressure * Cardiology input appreciated, will follow-up with recommendation * Discontinue tele monitor * Consider starting metoprolol at 6.25 bid if BP improves * Nitropaste discontinued # Epistaxis - 03/30/16 patient had an episode of epistaxis in the setting of IV heparin for NSTEMI, H&H low but stable s/p 1PRBC transfusion on 04/03. - Nasal packing removed on 04/06/15, no further episode , h/h stable * Keflex discontinued after 9 days # Leg edema * lasix discontinued for low blood pressure # History of COPD * TRC neb * Continue Spiriva 1 puff daily Diet: Heart Healthy DVT ppx: Lovenox 40 units subcutaneous CODE: DNR/DNI Problem List: 1. Seizure Pain Ratin Pain Location: none Pain Goal: Remain pain free Pain Plan: none Tomorrow's Labs & Rationales: none DVT/Prophylaxis: pharmacological
[2016-04-07 08:03] LABS: ABSOLUTE BASOPHIL COUNT 0 /CUMM (0.0-0.2); ABSOLUTE EOSINOPHIL COUNT 0 /CUMM (0.0-0.7); ABSOLUTE GRANULOCYTE CT 4.5 /CUMM (1.4-6.5); ABSOLUTE LYMPH COUNT 1.3 /CUMM (1.2-3.4); BASOPHIL % 0.3 % (0.0-2.0); EOSINOPHIL % 0.2 % (0-5); HEMATOCRIT 30.1 % (37-47); MEAN CORPUSCULAR HGB 31.8 PG (27.0-31.0); MEAN CORPUSCULAR HGB CONC 32.4 G/DL (33.0-37.0); MEAN CORPUSCULAR VOLUME 98.2 FL (81.0-99.0); MEAN PLATELET VOLUME 8.7 FL (7.4-10.4); PLATELET COUNT 150 /CUMM (130-400); RED BLOOD CELL CT 3.07 /CUMM (4.20-5.40); WHITE BLOOD CELL COUNT 6.9 /CUMM (4.8-10.8)
--- NOTE | 2016-04-07 08:28 | Discharge Summary ---
Visit Information Visit Dates Admission Date: 03/29/16 Discharge Date: 04/10/2016 Hospital Course Course Attending Physician: NATHALIA TAYLOR M.D Primary Care Physician: KARL ESPANA MD Consulting Request: Consulting Specialty: Neurology Hospital Course: This is a 80-year-old female with past medical history of lung cancer s/p brain mets currently on dexamethasone, keppra and Vimpat(held upon current admission) presented to the emergency department feeling weak, dizzy and had double vision, was found to have elevated troponins in the setting of no EKG changes. The following problems were addressed during the course of her hospital stay: #NSTEMI: Most likely NSTEMI type II (demand ischemia). Patient was initially admitted to telemetry monitored service with continuous cardiac monitoring for any arrhythmias. Oxygen supplementation to keep oxygen saturation above 90 . Cardiology was consulted and recommendations were followed. Troponin 0.17>>0.47>>0.33 no EKG changes. Patient was started on IV heparin(stopped 03/31/16), aspirin, Plavix, atorvastatin, nitroglycerin paste, Metoprolol and lisinopril started this admission but has been discontinued due to low blood pressure. Lopressor 6.25 bid restarted 04/08, but she did not receive as BP was low. Lopressor now discontinued. Nitropaste discontinued. Later on Plavix was discontinued given interaction with Depakote(increased risk of bleeding) per neurology recommendations; cardiology was also in agreement. #Lung cancer with mets to left frontal lobe, with twitches vs focal seizures Patient was found to be having altered mental status upon admission, but in setting of lung cancer with metastasis to brain. MRI showed decrease in size of brain metastasis lesion, neurology has recommended to increase the dose of Keppra but hold off of Vimpat for now and to have patient follow-up appointment discharge. On 04/05, patient had episodes of right arm and facial twitching, Depakote 500 mg twice a day was added to her current regimen. EEG normal. LFt and valproic level on 04/08 WNL. Oncology was consulted and recommended to increase dose of dexamethasone for brain metastasis and dronabinol was added for appetite. The dose of Depakote was later on increased to 1000mg in AM and 1500mg in PM.valproic acid trough level was checked on 04/10/2016 which was.... Random a.m. cortisol 04/10/2016: 7 Neurology recommended to avoid phenytoin given recent DE. And to avoid Topamax/ Zonergran due to hypersomnolence. per the recommendation, if Depakote increase not sufficient to control seizures over a positive pain 300 twice a day could be added to the anti-seizure medication regimen. Patient needs a follow-up with neurology and oncology (Dr. Mcduffie) as outpatient. Patient will need outpatient follow up EEG. #Epistaxis : 03/30/16 patient had an episode of epistaxis,heparin drip was stopped after 48 hours of initiation, H&H dropped on 04/03 for which she recived 1 unit of PRBCs. H&H ever since low but stable. ENT recomemnded to keep patient on keflex till nasal packing removal. Nasal packing removed 04/06, Keflex discontinued, patient does not need any further ENT follow up if she remains stable. #Leg edema: Lasix discontinued 03/26 borderline BP. #Hypothyroidism: The patient was maintained on home dose of levothyroxine (0.1 mg daily). # History of COPD TRC neb, the patient was maintained on Spiriva 1 puff daily #DVT prophylaxis: Mechanical given thrombocytopenia.(83 on 03/30/2016, improved to 150 on 2016) #Cardiac diet #CODE STATUS DNI/DNR Complications: Non Allergies: Coded Allergies: ciprofloxacin (From Cipro) (DIZZY 03/29/16) levofloxacin (SOB, TIGHTNESS IN CHEST 03/29/16) Disposition Summary Disposition Principal Diagnosis: -Altererd mental status/ resolvd -Hx. of Lung cancer with brain metastasis -Coronary artery disease -Epistaxis -Mild troponin elevation, likely demand ischemia -Seizure Additional Diagnosis: As above Discharge Disposition: SNF Discharge Instructions General Discharge Information Code Status: Do Not Resucitate/Intubat Patient's Diet: Heart heathy diet Patient's Activity: As tolerated Follow-Up Instructions/Appts: -Follow up with your primary care physician within one week after discharge. -Follow up with neurologist; patient will need outpatient follow up EEG. -Follow up with your medical technologist clinical. Medications at Discharge Discharge Medications: Stop taking the following medications: Lacosamide (Vimpat) 100 MG TABLET ORAL TWICE DAILY Qty = 120 Dexamethasone (Dexamethasone) 0.5 MG TABLET ORAL See Instructions Qty = 120 Furosemide (Furosemide) 20 MG TABLET ORAL WEDNESDAY, WEDNESDAY AND WEDNESDAY Qty = 90 Continue taking these medications: Atorvastatin Calcium (Lipitor) 40 MG TABLET 1 Tablet ORAL Every night Qty = 90 Comments: Last Taken:08/25/14 Time:5pm Tiotropium [place] (Spiriva) 18 MCG CAP.W.DEV 1 Capsule Inhale through mouth DAILY Qty = 90 Comments: Last Taken:08/26/14 Time:10am Levothyroxine Sodium (Levothyroxine Sodium) 50 MCG TABLET 100 Microgram ORAL DAILY Qty = 30 Start taking the following new medications: Aspirin (Aspirin*) 81 MG TAB.CHEW 2 Tablet ORAL DAILY Qty = 90 No Refills Dexamethasone (Dexamethasone) 1 MG TABLET 2 Tablet ORAL TWICE DAILY Qty = 60 No Refills Divalproex Sodium (Depakote ER) 500 MG TAB.ER.24H 1 Tablet ORAL See Instructions Qty = 90 No Refills Instructions: Please take 2 pills (1000mg) in the morning Please take 3 pills (1500mg) at night Dronabinol (Dronabinol) 2.5 MG CAPSULE 1 Tablet ORAL TWICE DAILY Qty = 30 No Refills Levetiracetam (Keppra) 500 MG TABLET 2 Tablet ORAL 1000 Qty = 60 No Refills Levetiracetam (Keppra) 750 MG TABLET 2 Tablet ORAL 2200 Qty = 60 No Refills Copies To: NATHALIA TAYLOR M.D
[2016-04-07 08:36] VITALS: BP 102/70
--- NOTE | 2016-04-07 14:22 | PN- Cardiology ---
Subjective Subjective: * Nirmala is free of chest discomfort, shortness of breath or lightheadedness. * She was observed to have seizure activity going up her right arm to her face consistent with a partial simple seizure with April. The patient is often lethargic and is not eating or drinking very much. * sinus rhythm. * Normal BUN, creatinine and sodium. Potassium is borderline at 3.5 * anemia and low platelets have improved Objective Vital Signs and I&Os Vital Signs Date Time Temp Pulse Resp B/P Pulse O2 O2 Flow FiO2 Ox Delivery Rate 04/07 0836 98.0 98 20 102/70 97 Nasal 2.0L Cannula 04/07 0800 95 Nasal 2.0L Cannula 04/07 0000 96 Nasal 2.0L Cannula 04/06 2354 98.3 104 32 100/70 94 Nasal 2.0L Cannula 04/06 2105 98.6 102 21 108/58 96 Nasal 2.0L Cannula 04/06 1600 94 Nasal 2.0L Cannula 04/06 1530 98.1 102 20 116/64 94 Nasal 2.0L Cannula Intake & Output 04/07 1600 04/07 0800 04/07 0000 04/06 1600 04/06 0800 04/06 0000 Intake Total 200 100 240 520 Output Total 300 150 200 Balance 200 100 -60 -150 320 Intake, Oral 200 100 240 520 Number 1 0 Bowel Movements Output, Urine 300 150 200 Physical Exam: General: WD/ WN female in NAD; lethargic but awake and oriented x 3 Neck: no JVD, no carotid bruit Heart: RRR w/o murmur Lungs: no crackles or wheezing Extemities: no edema Assessment/Plan Assessment/Plan * This patient is doing well from a cardiac standpoint. She has a borderline BP likely due to a combination of poor oral intake and medications. Continue her aspirin at 162mg daily, Lipitor and Plavix. I would restart a small dose of Lopressor at 12.5mg BID. Hold NTG unless she has recurrent chest pain. * This patient has a poor appetite that is probably due to both extreme lethargy in the setting of her seizures and medications to treat them and due to failure to thrive. Consider an appetite stimulant. * She is currently pain free and without any evidence of decompensated congrestive heart failure. Telemetry can be discontinued. Continue telemetry? No
[2016-04-07 15:30] VITALS: BP 104/68
--- NOTE | 2016-04-07 15:52 | PN- Att Addend ---
Attending Addendum Attending Brief Note Patient seen and examined. She is lethargic but oriented 3. She is not in acute distress. Denies chest pain or shortness of breath. Denies palpitations. No events on telemetry. Patient reports that she continues to have several episodes of focal twitching. On examination she is oriented 3. She has no focal deficits. I did have a conversation with patient and the daughter at the bedside. Mom is quite frustrated about patient's ongoing medical condition. She reports that she started having similar focal episodes back in October. She was started on Vimpat at that time. The episodes continued required an admission to [facility]. They have a dose of Vimpat was increased. Despite this she continued to have these episodes at home. Patient has been doing well since admission and over the weekend when she started again with this focal episodes. Patient reports that the episodes are currently lasting longer. She reports that at home she is to follow up to 20 episodes a day. Daughter reports that as an outpatient patient's neurologist Dr. Dasilva stated that the episodes are due to the metastatic disease in her brain and unlikely to continue despite antiepileptic therapy. During my conversation with the patient and from the bedside patient developed an episode of twitching of her right upper extremity and right side of her face. Episode lasted about 45 seconds. Patient remained awake during the episode and responded appropriately with a garbled voice during the episode. It slowly abated with resolution of the twitching in the right upper extremity and then of the face. She began conversing appropriately immediately afterwards. She continued to be lethargic. She reports that the episodes are exhausting and continue to alcohol frequently. She had no focal deficit following the episode. Interestingly EEG done yesterday was normal overall with slight background slowing mainly in the right frontal regions. She did have occasional muscle twitching without any EEG correlation. Blood pressure has been borderline and is currently in the low 100s. She is not tachycardic so far today. Appetite is poor and she reports exhaustion from recurrent episodes of focal twitching. Problems: 1. 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 Status post non-ST elevation FL. 3. Hypotension; likely multifactorial secondary to initiation of antihypertensive medications and poor oral intake. 4. Deconditioning with poor oral intake. 5. Thrombocytopenia likely secondary to chemotherapy Plan: -Continue antiepileptic therapy with Depakote and Keppra. -Maintain seizure precautions and aspiration precautions. -Please follow-up with the neurology service. -Her antihypertensive medications have been on hold due to low blood pressure. Blood pressure is stable over 110 systolic consider resuming low dose of metoprolol given her non-ST elevation FL. -She received nitroglycerin yesterday. Currently denies chest pain. We'll hold this medication unless she has pain. -Continue dual antiplatelet therapy and statin therapy. -Discontinued telemetry on a trip recommendations of the cardiology service. -Continue steroid therapy with Decadron for her cerebral vasogenic edema. Home nurses confirm to be 1 mg in the morning and 0.5 mg in the evening. -Mobilize patient as tolerated. -Nutrition consult to optimize patient's nutritional status.
--- NOTE | 2016-04-07 17:11 | PN- Neurology ---
Subjective Subjective: 80 year old with a complex past medical history that includes lung cancer with mets to the brain and eventual development of symptomatic seizure disorder, presented to the hospital for an [place]. While in the hospital this weekend she had developed recurrent episodes of right sided arm and face twitching with maintenance of consciousness and awareness (talks through them). Depakote 500 bid was added however, she continued to have these episodes today. EEG yesterday was unrevealing. Objective Vital Signs and I&Os Vital Signs Date Time Temp Pulse Resp B/P Pulse O2 O2 Flow FiO2 Ox Delivery Rate 04/07 0836 98.0 98 20 102/70 97 Nasal 2.0L Cannula 04/07 0800 95 Nasal 2.0L Cannula 04/07 0000 96 Nasal 2.0L Cannula 04/06 2354 98.3 104 32 100/70 94 Nasal 2.0L Cannula 04/06 2105 98.6 102 21 108/58 96 Nasal 2.0L Cannula Intake & Output 04/07 1600 04/07 0800 04/07 0000 04/06 1600 04/06 0800 04/06 0000 Intake Total 400 200 100 240 520 Output Total 350 300 150 200 Balance 50 200 100 -60 -150 320 Intake, Oral 400 200 100 240 520 Number 1 0 Bowel Movements Output, Urine 350 300 150 200 Physical Exam: Alert and oriented x3 (does not know day of the month) EOMI, AMANDA, no nystagmus. Tongue midline. Minimal right arm drift. Otherwise strength is normal. Sensory normal. Current Medications: Current Medications Sig/Kong Start time Last Medication Dose Route Stop Time Status Admin Acetaminophen 650 MG Q6P PRN 03/29 0845 AC PO Al Hydroxide/Mg 30 ML ONCE ONE 04/06 2214 CAN Hydroxide PO 04/06 221 Aspirin 243 MG DAILY 03/30 1000 AC 04/07 PO 0939 Atorvastatin Calcium 40 MG QPM 03/29 2199 AC 04/06 PO 213 Cephalexin 500 MG BID 03/30 999 DC 04/07 PO 0939 Clopidogrel Bisulfate 75 MG DAILY 03/30 999 AC 04/07 PO 0939 Dexamethasone 1 MG 1000 04/08 1000 AC PO Dexamethasone 0.5 MG 04/07 AC PO Dexamethasone 0.5 MG ONE ONE 04/07 1000 DC 04/07 PO 04/07 1001 1237 Dexamethasone 0.5 MG BID 03/30 2199 DC 02/14 PO 0939 Divalproex Sodium 500 MG BID 04/05 1815 AC 04/07 PO 0939 Docusate Sodium 100 MG BID 03/29 1000 AC 04/07 PO 0939 Heparin Sodium 100 UNIT ONCE PRN 03/31 0700 AC (Porcine) IV Levetiracetam 1,000 MG DAILY 04/02 1000 AC 04/07 PO 0939 Levetiracetam 1,500 MG QPM 04/01 2200 AC 04/06 PO 2134 Levothyroxine Sodium 0.1 MG DAILY AC 03/29 0823 AC 04/07 PO 0618 Lidocaine 1 ISIS DAILY PRN 03/30 2100 AC TOP Magnesium Sulfate 1 GM ONCE ONE 04/06 1315 DC 04/06 Dextrose/Water 100 ML IV 04/06 1714 1400 Nitroglycerin 1 GM Q6 03/29 1320 DC 04/06 TOP 1749 Nitroglycerin 0.4 MG ONCE PRN 03/29 0815 AC SL Oxymetazoline HCl 2 SPRAY BID PRN 03/30 0215 AC PENELOPE Polyethylene Glycol 17 GM AT BEDTIME 03/29 2200 AC 04/06 PO 2133 Tiotropium [place] 1 PUF DAILY 03/29 1000 AC 04/07 INH 0939 Results Last 24 Hours of Lab Results: Laboratory Tests 04/07 613 Chemistry Phosphorus (2.5 - 4.5 mg/dL) 3.7 Magnesium (1.6 - 2.3 mg/dL) 1.7 Hematology CBC w Diff NO MAN DIFF REQ WBC (4.8 - 10.8 /CUMM) 6.9 RBC (4.20 - 5.40 /CUMM) 3.07 L Hgb (12.0 - 16.0 G/DL) 9.8 L Hct (37 - 47 %) 30.1 L MCV (81.0 - 99.0 FL) 98.2 MCH (27.0 - 31.0 PG) 31.8 H RDW (11.5 - 14.5 %) 22.0 H Plt Count (130 - 400 /CUMM) 150 MPV (7.4 - 10.4 FL) 8.7 Gran % (42.2 - 75.2 %) 65.0 Lymphocytes % (20.5 - 51.1 %) 19.3 L Monocytes % (1.7 - 9.3 %) 15.2 H Eosinophils % (0 - 5 %) 0.2 Basophils % (0.0 - 2.0 %) 0.3 Absolute Granulocytes (1.4 - 6.5 /CUMM) 4.5 Absolute Lymphocytes (1.2 - 3.4 /CUMM) 1.3 Absolute Monocytes (0.10 - 0.60 /CUMM) 1.0 H Absolute Eosinophils (0.0 - 0.7 /CUMM) 0 Absolute Basophils (0.0 - 0.2 /CUMM) 0 PUBS MCHC (33.0 - 37.0 G/DL) 32.4 L Recent Imaging Studies: FINDINGS: There has been a substantial reduction in the intensity of enhancement associated with a central necrotic mass involving the left precentral gyrus and the extent of perilesional vasogenic edema has also substantially improved when compared to the most recent prior brain MRI from 08/29/2015. There is no new mass or enhancement. No intracranial mass effect or midline shift. Lateral and third ventricles are proportionate to the subarachnoid spaces. No hydrocephalus. There is a small focus of magnetic susceptibility artifact involving the left lateral thalamus and the subcortical white matter within the posterior left temporal lobe narrow margin of magnetic susceptibility artifact is visualized along the rim of the left frontal mass. Scattered nonspecific foci of T2 FLAIR signal hyperintensity are visualized within the periventricular white matter and marily that may either represent a manifestation of chronic small vessel ischemia or post treatment effects. There is no acute territorial infarct. Intracranial vascular flow voids are grossly maintained. Midline structures including the cervicomedullary junction are normal. Bone marrow signal intensity is normal there is no mastoid or middle ear effusion. Mild paranasal sinus disease primarily affecting the ethmoid air cells and sphenoid sinus. Globes and orbits are symmetric. IMPRESSION: Findings consistent with response to treatment. Specifically there has been substantial reduction of enhancement and there has been a reduction of perilesional vasogenic edema associated with the left frontal lobe metastasis. There is no new mass or enhancement. Assessment/Plan Assessment: 80 year old woman with reported symptomatic simple partial seizures on the right side. She is on Keppra 1000 q12h and now started on Depakote XR 500 q12h. However per staff continues to have event. No GTCs reported. Has not tolerated Vimpat well and in any case did not get complete control on it. Plan: 1. Increase Depakote to 1000 q12h. 2. Check TROUGH levels in AM (prior to next dose) with LFTs. 3. C/w La. YC
--- NOTE | 2016-04-07 22:57 | NUR ---
NURSING NOTE; PT WITH SEVERAL ?FOCAL SEIZURES PRESENTED BY R)ARM SPASMS AND R) SIDE OF FACE TWITCHING. PT ALSO C/O BEING UNABLE TO HOLD ITEMS WITH HER R) HAND. STENGTH TESTED. EQUAL GRASP NOTED. EVALUATED BY NEURO TODAY. TO START INCREAED DOSE OF DEPAKOTE.
[2016-04-08 00:04] VITALS: BP 100/60
[2016-04-08 00:05] VITALS: BP 100/60
--- NOTE | 2016-04-08 06:40 | PN- Housestaff ---
BECKY MENDOZA,HSRAVAN 04/08/16 0640: Subjective Follow-up For: simple partial seizure low appetite Subjective: Pt was seen and examined this morning. LFT and valproic level WNL. Mag low at 1.5, repleted with mag ox. Valproic acid was increased to 1000 bid last night. Pt had right lip and arm twitch at 7am and 8am today. At 8am, we were in the room, and it lasted about 2 minutes. She remained conscious, alert, and responded to commands during the episode. She appeared more tired after the episode but was still alert and oriented. I contacted Dr. Ferrari's answering service to ask when pt can be discharged, on what meds, and further follow up plan. Still awaiting callback. I also contacted Dr. Espino and Dr. Coulter from oncology. As far as the brain metastasis is concerned, there is nothing to add to her current treatment. For appetite, Dr. Coulter recommended dronabinol, starting at 2.5 mg daily. Pharmacy called and recommended bid dosing. Dr. Coulter will see the patient. lopressor restarted as per Dr. Stone's recommendation, but at 6.[address] Ortega. aspirin changed to 162 mg. Review of Systems Constitutional: Denies: chills, diaphoresis, fever. EENTM: Denies: visual changes. Cardiovascular: Denies: chest pain, palpitations. Respiratory: Denies: cough, short of breath, sputum production. Gastrointestinal: Denies: abdominal pain, bloating, constipation, diarrhea. Objective Last 24 Hrs of Vital Signs/I&O Vital Signs Date Time Temp Pulse Resp B/P Pulse O2 O2 Flow FiO2 Ox Delivery Rate 04/08 1045 76 110/74 04/08 0819 97.8 97 20 98/80 95 Nasal 2.0L Cannula 04/08 0800 94 Nasal 2.0L Cannula 04/08 0005 97.6 97 18 100/60 96 Nasal 2.0L Cannula 04/08 0004 97.6 97 19 100/60 96 Nasal 2.0L Cannula 04/08 0000 94 Nasal 2.0L Cannula 04/07 1600 94 Nasal 2.0L Cannula 04/07 1530 97.7 92 18 104/68 94 Nasal 2.0L Cannula Intake & Output 04/08 1600 02/15 0800 04/08 0000 Intake Total 100 680 Output Total 300 Balance -200 680 Intake, Oral 100 680 Number 1 Bowel Movements Output, Urine 300 Physical Exam General Appearance: Alert, Oriented X3, Cooperative, had simple partial seizure during examination that lasted 2 mins. right lip and arm twitch Skin: bruise on right hand HEENT: Atraumatic Cardiovascular: Regular Rate, Normal S1, Normal S2, No Murmurs, Gallops, Rubs Lungs: Clear to Auscultation, Normal Air Movement Abdomen: Normal Bowel Sounds, Soft, No Tenderness Neurological: intermittent aphasia Extremities: No Edema Assessment/Plan Assessment: This is a 80-year-old female with past medical history of 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 Troponins elevations are likely related to demand ischemia. # Lung cancer with mets to left frontal lobe, with twitches vs focal seizures - Patient was found to be having altered mental status upon admission, but in setting of lung cancer with metastasis to brain. MRI showed decrease in size of brain metastasis lesion, neurology has recommended to increase the dose of Keppra but hold off of Vimpat for now and to have patient follow-up appointment discharge. - On 04/05, patient had episodes of right arm and facial twitching, Depakote 500 mg twice a day was added to her current regimen. - EEG normal - LFt and valproic level on 04/08 WNL * Follow up neurology input * Continue dexamethasone (home dose 1 mg in am, 0.5 mg in pm) * Continue increased dose of keppra: 1000 in am, 1500 in pm * Continue to hold vimpat * Depakote 500 mg BID started on 04/06, increased to 1000 bid on 04/07 pm * PT recommends STR however pt's family is adament about not sending pt to any snf facility * Oncology consult with Dr. Marylin Inman # Low blood pressure in the settings of low PO intake, lethargy possibly due to overmedication? failure to thrive? * Appreciate nutrition consult * Consider IV fluids if BP worsens * Dronabinol started 2.5 mg at bedtime (consider changing to bid) # Demand ischemia resolved - Troponin 0.17>>0.47>>0.33 no new EKG changes - Patient was started on IV heparin(stopped 03/31/16), aspirin, Plavix, atorvastatin, nitroglycerin paste * Oxygen supplementation to keep oxygen saturation above 90. Home O2 2L * Metoprolol and lisinopril started this admission but has been discontinued due to low blood pressure. Lopressor 6.25 bid restarted 04/08. * Cardiology input appreciated, will follow-up with recommendation * Discontinue tele monitor * Nitropaste discontinued # Hypomagnesiumia - Mag 1.5 * Replete with 1 time mag ox # Epistaxis - 03/30/16 patient had an episode of epistaxis in the setting of IV heparin for NSTEMI, H&H low but stable s/p 1PRBC transfusion on 04/03. - Nasal packing removed on 04/06/15, no further episode , h/h stable * Keflex discontinued after 9 days # Leg edema * lasix discontinued for low blood pressure # History of COPD * TRC neb * Continue Spiriva 1 puff daily Diet: Heart Healthy DVT ppx: Lovenox 40 units subcutaneous CODE: DNR/DNI Problem List: 1. Seizure Pain Ratin Pain Location: none Pain Goal: Remain pain free Pain Plan: none Tomorrow's Labs & Rationales: none DVT/Prophylaxis: mechanical, pharmacological Consulting Request: Consulting Specialty: Neurology CLAUDIA MENDOZA,NATHALIA 04/08/16 1437: Attending MD Review Statement Attending Statement Attending MD Statement: examined this patient, discuss w/resident/PA/KILN WORKER, agreed w/resident/PA/KILN WORKER, reviewed EMR data (avail), discussed with nursing, discussed with case mgmt, amended to note Attending Assessment/Plan: Patient seen and examined. Resting comfortably and not in acute distress. No issues overnight reported by nursing staff. Patient reports that she continues to have seizure episodes on and off. She currently denies chest pain or shortness of breath. Denies palpitations. She has no focal deficits on examination. Blood pressure remains borderline. Neurology follow-up yesterday appreciated. Dose of Depakote has been increased. Depakote level is within therapeutic limits. Recommendations: -Her seizures are likely to continue despite antiepileptic therapy due to her metastatic brain disease. -Please follow-up with her oncologist if there are any other options recommended for her metastatic disease. It is noted however that MRI shows a decrease in size of the brain lesions. -Resume beta ángel therapy as recommended by cardiology service. Would recommend close monitoring of her blood pressure. -Follow-up with the neurology service regarding discharge planning. Family wishes for patient to be discharged home on no longer on discharge to retirement facility. -I hemoglobin level has been stable. Platelet count has improved significantly. Magnesium level will be supplemented today.
[2016-04-08 08:19] VITALS: BP 98/80
[2016-04-08 10:45] VITALS: BP 110/74
--- NOTE | 2016-04-08 13:56 | PN- Cardiology ---
Subjective Subjective: * Patient remains lethargic with poor appetite. * potassium is 3.5 Objective Vital Signs and I&Os Vital Signs Date Time Temp Pulse Resp B/P Pulse O2 O2 Flow FiO2 Ox Delivery Rate 04/08 1045 76 110/74 04/08 0819 97.8 97 20 98/80 95 Nasal 2.0L Cannula 04/08 0800 94 Nasal 2.0L Cannula 04/08 0005 97.6 97 18 100/60 96 Nasal 2.0L Cannula 04/08 0004 97.6 97 19 100/60 96 Nasal 2.0L Cannula 04/08 0000 94 Nasal 2.0L Cannula 04/07 1600 94 Nasal 2.0L Cannula 04/07 1530 97.7 92 18 104/68 94 Nasal 2.0L Cannula Intake & Output 04/08 1600 04/08 0800 04/08 0000 04/07 1600 04/07 0800 04/07 0000 Intake Total 100 680 400 200 100 Output Total 300 350 Balance -200 680 50 200 100 Intake, Oral 100 680 400 200 100 Number 1 Bowel Movements Output, Urine 300 350 Physical Exam: General: WD/ WN female in NAD; lethargic but awake and oriented x 3 Neck: no JVD, no carotid bruit Heart: RRR w/o murmur Lungs: no crackles or wheezing Extemities: no edema Assessment/Plan Assessment/Plan * This patient is doing well from a cardiac standpoint. She has a borderline BP likely due to a combination of poor oral intake and medications. Continue her aspirin at 162mg daily, Lipitor and Plavix. I would restart a small dose of Lopressor at 12.5mg BID. Hold NTG unless she has recurrent chest pain. * This patient has a poor appetite that is probably due to both extreme lethargy in the setting of her seizures and medications to treat them and due to failure to thrive. Consider an appetite stimulant. * She is currently pain free and without any evidence of decompensated congrestive heart failure. Continue telemetry? Not applicable
--- NOTE | 2016-04-08 15:28 | Event Note ---
Event Note Event Note: Physical therapy noted right hand weakness and increased slurred speech while working with pt. She also needed more help with transfer from bed to chair. On my examination, she does have a new mild right lip droop, and decreased strength on her right hand compared to left. Assessment: Her symptoms are most likely related to the known left frontal lung cancer metastasis, however we should rule out a new stroke. Plan: CT head without contrast
--- NOTE | 2016-04-08 16:18 | NUR ---
NURSING NOTE- DURING DAY SHIFT, PT NOTED TO HAVE 2 EPISODES OF ?FOCAL SEIZURES . DTR JOEY AWARE AND UPDATED ON PTS STATUS FOR DAY. PT REFUSING TO EAT BREAKFAST AND LUNCH DUE TO LETHARGY. DTR REQUESTING TO MEET WITH NEUROLOGIST. DR PENA MADE AWARE. 1430: PT WORKED WITH P.T. UP TO CHAIR WITH P.T. AND RW. PT SPOKE WITH THIS NURSE RE: PTS SLURRED SPEECH AND RUE WEAKNESS. PT KNOWN TO HAVE EPISODES OF ?FOCAL SEIZURES INVOLVING RUE AND RT SIDE OF FACE. PT DENIED HAVING SEIZURE PRIOR TO WORKING WITH P.T. PT USUALLY ALERT AND AWARE DURING SZ. IN TO SEE PT. PT NOTED TO HAVE SLIGHT RT FACIAL DROOP AND SLURRING. PT ABLE TO GRASP B/L BUT WITH R HAND < LT HAND. SPOKE WITH DR SHRAVAN PENA WHO WENT IN TO SEE PT. STATES PT SEEMS AT HER RECENT BASELINE. VSS. SBP 90-100S. CT SCAN OF HEAD ORDERED FOR PT. WILL CONTINUE TO MONITOR.
--- NOTE | 2016-04-08 16:37 | CT SCAN REPORT ---
EXAMINATION: CT HEAD WITHOUT CONTRAST CLINICAL INFORMATION: Lung cancer with brain metastasis. Worsening slurred speech and right hand weakness COMPARISON: Head CT from 04/05/2016. MRI of the brain from 08/29/2015 and 03/30/2016. TECHNIQUE: Contiguous axial imaging was performed from the skull base to vertex without intravenous administration of contrast. DLP: 529 mGy-cm FINDINGS: A partially calcified mass in the high left frontal lobe is stable from the most recent prior study with surrounding hypoattenuation suggesting vasogenic edema and/or gliosis. Both the mass in the surrounding hypoattenuation are substantially improved from 08/29/2015. There is stable mild generalized prominence of the ventricles, sulci, and extra-axial series of spaces. Stable periventricular hypoattenuation likely a combination of chronic microangiopathy and post treatment related change. No intracranial hemorrhage or evolving territorial infarct. No extra-axial collection or new mass effect. No shift of normally midline structures or hydrocephalus. No acute osseous abnormalities. The mastoid air cells and middle ear cavities are clear. The temporal mandibular joints articulate normally. There is moderate mucosal thickening and aerosolized secretions within the right ethmoid and sphenoid air cells, similar to the most recent prior study and mild mucosal thickening within the partially imaged right maxillary sinus. The nasal cavity is clear. The soft tissues demonstrate no acute abnormalities. IMPRESSION: Stable findings relative to 04/05/2016 including a partially calcified mass in the high left frontal lobe with surrounding hypoattenuation compatible with a treated metastatic lesion from the patient's lung cancer. No evolving infarct or evidence of intracranial hemorrhage. Inflammatory disease within the right-sided paranasal sinuses, partially visualized.
[2016-04-08 17:00] VITALS: BP 91/68
[2016-04-08 23:48] VITALS: BP 90/60
--- NOTE | 2016-04-09 06:41 | PN- Housestaff ---
See Addendum Subjective Follow-up For: simple partial seizure Subjective: Pt seen and examined this morning. She appeared tired and preferred to have her eyes closed during our history and examination. She reported only 1 seizure episode last night. She still has a low appetite. She got her first dose of dronabinol last night. We will speak to her daughter again regarding possible discharge to [facility] given her mobility issues and need for assistance. 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 her BP was low, she did not receive the lopressor. We have discontinued the lopressor. Review of Systems Constitutional: Denies: chills, fever. Cardiovascular: Denies: chest pain, palpitations. Respiratory: Denies: cough, short of breath. Gastrointestinal: Denies: abdominal pain, bloating. Objective Last 24 Hrs of Vital Signs/I&O Vital Signs Date Time Temp Pulse Resp B/P Pulse O2 O2 Flow FiO2 Ox Delivery Rate 04/09 0800 98.1 97 20 96/58 99 Nasal 2.0L Cannula 04/09 0000 94 Nasal 2.0L Cannula 04/08 2348 98.7 71 26 90/60 94 Nasal 2.0L Cannula 04/08 2220 71 90/60 04/08 1700 98.4 103 19 91/68 93 Nasal 2.0L Cannula Intake & Output 04/09 1600 04/09 0800 04/09 0000 Intake Total 100 100 Output Total 200 Balance -100 100 Intake, Oral 100 100 Output, Urine 200 Physical Exam General Appearance: Alert, Oriented X3, Cooperative, No Acute Distress Skin: some bruises on her hands HEENT: Atraumatic, PERRLA Cardiovascular: Regular Rate, Normal S1, Normal S2, No Murmurs Lungs: Clear to Auscultation, Normal Air Movement Abdomen: Normal Bowel Sounds, Soft, No Tenderness Current Medications: Current Medications Sig/Kong Start time Last Medication Dose Route Stop Time Status Admin Acetaminophen 650 MG Q6P PRN 03/29 0845 AC PO Aspirin 162 MG DAILY 04/09 1000 AC PO Aspirin 243 MG DAILY 03/30 1000 DC 04/08 PO 1055 Atorvastatin Calcium 40 MG QPM 03/29 2200 AC 04/08 PO 2220 Clopidogrel Bisulfate 75 MG DAILY 03/30 1000 AC 04/08 PO 1055 Dexamethasone 1 MG 1000 04/08 1000 AC 04/08 PO 1055 Dexamethasone 0.5 MG 2200 04/07 2200 AC 04/08 PO 2220 Divalproex Sodium 1,000 MG BID 04/07 2200 AC 04/08 PO 2219 Docusate Sodium 100 MG BID 03/29 1000 AC 04/08 PO 2219 Dronabinol 2.5 MG BID 04/09 1000 AC PO Dronabinol 2.5 MG AT BEDTIME 04/08 2200 DC 04/08 PO 2221 Heparin Sodium 100 UNIT ONCE PRN 03/31 0700 AC (Porcine) IV Levetiracetam 1,000 MG DAILY 04/02 1000 AC 04/08 PO 1055 Levetiracetam 1,500 MG QPM 04/01 2200 AC 04/08 PO 2219 Levothyroxine Sodium 0.1 MG DAILY AC 03/29 0823 AC 04/09 PO 0636 Lidocaine 1 ISIS DAILY PRN 03/30 2100 AC TOP Magnesium Oxide 400 MG ONE ONE 04/08 1400 DC 04/08 PO 04/08 1401 2221 Metoprolol Tartrate 6.25 MG BID 04/08 2200 DC PO Metoprolol Tartrate 12.5 MG BID 04/08 1401 DC PO Nitroglycerin 0.4 MG ONCE PRN 03/29 0815 AC SL Oxymetazoline HCl 2 SPRAY BID PRN 03/30 0215 AC PENELOPE Polyethylene Glycol 17 GM AT BEDTIME 03/29 2200 AC 04/08 PO 2221 Tiotropium Goff 1 PUF DAILY 03/29 1000 AC 04/08 INH 1055 Last 24 Hrs of Lab/Pierre Results Last 24 Hrs of Labs/Mics: No labs Assessment/Plan Assessment: This is a 80-year-old female with past medical history of 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 Troponins elevations are likely related to demand ischemia. # Lung cancer with mets to left frontal lobe, with twitches vs focal seizures - Patient was found to be having altered mental status upon admission, but in setting of lung cancer with metastasis to brain. MRI showed decrease in size of brain metastasis lesion, neurology has recommended to increase the dose of Keppra but hold off of Vimpat for now and to have patient follow-up appointment discharge. - On 04/05, patient had episodes of right arm and facial twitching, Depakote 500 mg twice a day was added to her current regimen. - EEG normal - LFt and valproic level on 04/08 WNL * Follow up neurology input * Continue dexamethasone (home dose 1 mg in am, 0.5 mg in pm) * Continue increased dose of keppra: 1000 in am, 1500 in pm * Continue to hold vimpat * Depakote 500 mg BID started on 04/06, increased to 1000 bid on 04/07 pm * PT recommends STR however pt's family is adament about not sending pt to any [facility] facility * Oncology consult with Dr. Marylin Inman # Low blood pressure in the settings of low PO intake, lethargy possibly due to overmedication? failure to thrive? * Appreciate nutrition consult * Consider IV fluids if BP worsens * Dronabinol started 2.5 mg at bedtime --> changed to bid # Demand ischemia resolved - Troponin 0.17>>0.47>>0.33 no new EKG changes - Patient was started on IV heparin(stopped 03/31/16), aspirin, Plavix, atorvastatin, nitroglycerin paste * Oxygen supplementation to keep oxygen saturation above 90. Home O2 2L * Metoprolol and lisinopril started this admission but has been discontinued due to low blood pressure. Lopressor 6.25 bid restarted 04/08, but she did not receive as BP was low. Lopressor now discontinued * Cardiology input appreciated, will follow-up with recommendation * Discontinue tele monitor * Nitropaste discontinued # Hypomagnesiumia - Mag 1.5 * Replete with 1 time mag ox # Epistaxis - 03/30/16 patient had an episode of epistaxis in the setting of IV heparin for NSTEMI, H&H low but stable s/p 1PRBC transfusion on 04/03. - Nasal packing removed on 04/06/15, no further episode , h/h stable * Keflex discontinued after 9 days # Leg edema * lasix discontinued for low blood pressure # History of COPD * TRC neb * Continue Spiriva 1 puff daily Diet: Heart Healthy DVT ppx: Lovenox 40 units subcutaneous CODE: DNR/DNI Problem List: 1. Seizure 2. Brain metastasis Pain Ratin Pain Location: none Pain Goal: Remain pain free Pain Plan: none Tomorrow's Labs & Rationales: none DVT/Prophylaxis: mechanical, pharmacological Consulting Request: Consulting Specialty: Neurology
[2016-04-09 08:00] VITALS: BP 96/58
[2016-04-09] MEDS ORDERED: ASPIRIN81 M4 PO (08:59)
--- NOTE | 2016-04-09 12:39 | Cons- Oncology ---
General Information and HPI Consulting Request Date of Consult: 04/09/16 Requested By: NATHALIA TAYLOR M.D Reason for Consult: Lung cancer with brain metastasis Source of Information: patient, old records Exam Limitations: clinical condition, poor historian History of Present Illness: Ms. Shi is a 80-year-old female with metastatic NSCLC who is currently on chemotherapy with carboplatin/gemcitabine/Avastin (last on 03/20/2016) who presented to the hospital with presented with dizziness, weakness, and vision changes. She was found to have a NSTEMI during hospitalization. She was started on heparin drip but did have some complication with epistaxis. She was also noted to have altered mental status with MRI demonstrated improved brain lesion. She was noted to have seizure activity with right arm and facial twitiching. She was on Keppra and Vimpat previously. Vimpat has been stopped. She is now on Depakote with Keppra. Neurology is following. She is on dexamethasone at 1 mg and 0.5 mg. She continues to have the seizure activity intermittently. Repeated imaging of the head did not show any changes. She had previously had SRS to the brain. She currently has decreased appetite and oral intake. Allergies/Medications Allergies: Coded Allergies: ciprofloxacin (From Cipro) (DIZZY 03/29/16) levofloxacin (SOB, TIGHTNESS IN CHEST 03/29/16) Home Med List: Aspirin (Aspirin*) 81 MG TAB.CHEW 3 MG PO DAILY heart health Atorvastatin Calcium (Lipitor) 40 MG TABLET 1 TAB PO QPM CHOLESTEROL ( Reported) Clopidogrel Bisulfate (Plavix) 75 MG TABLET 1 TAB PO DAILY heart health Dexamethasone 0.5 MG TABLET 0.5 MG PO BID STEROID (Reported) 2 AM 1 PM Furosemide 20 MG TABLET 20 MG PO Wednesday WATER RETENTION (Reported) Lacosamide (Vimpat) 100 MG TABLET 100 MG PO BID SEIZURES (Reported) ONE IN MORNING AND TWO PM FOR ONE WEEK TILL 04/01/16 AND TWO IN THE AM AND TWO THE PM Levetiracetam 1,000 MG TABLET 1,000 MG IL SI SEIZURES (Reported) take one pill in moring and one and half pill at night. Levothyroxine Sodium 50 MCG TABLET 100 MCG PO DAILY THYROID HEALTH (Reported) Tiotropium [place] (Spiriva) 18 MCG CAP.W.DEV 1 CAP INH DAILY EMPHYSEMA ( Reported) Current Medications: Current Medications Sig/Kong Start time Last Medication Dose Route Stop Time Status Admin Acetaminophen 650 MG Q6P PRN 03/29 0845 AC PO Aspirin 162 MG DAILY 04/09 1000 AC PO Aspirin 243 MG DAILY 03/30 1000 DC 04/08 PO 1055 Atorvastatin Calcium 40 MG QPM 03/29 2200 AC 04/08 PO 2220 Clopidogrel Bisulfate 75 MG DAILY 03/30 1000 AC 04/08 PO 1055 Dexamethasone 1 MG 1000 04/08 1000 AC 04/08 PO 1055 Dexamethasone 0.5 MG 04/07 2200 AC 04/08 PO 2220 Divalproex Sodium 1,000 MG BID 04/07 2200 AC 04/08 PO 2219 Docusate Sodium 100 MG BID 03/29 1000 AC 04/08 PO 2219 Dronabinol 2.5 MG BID 04/09 1000 AC PO Dronabinol 2.5 MG AT BEDTIME 04/08 2200 DC 04/08 PO 2221 Heparin Sodium 100 UNIT ONCE PRN 03/31 0700 AC (Porcine) IV Levetiracetam 1,000 MG DAILY 04/02 1000 AC 04/08 PO 1055 Levetiracetam 1,500 MG QPM 04/01 2200 AC 04/08 PO 2219 Levothyroxine Sodium 0.1 MG DAILY AC 03/29 0823 AC 04/09 PO 0636 Lidocaine 1 ISIS DAILY PRN 03/30 2100 AC TOP Magnesium Oxide 400 MG ONE ONE 04/08 1400 DC 04/08 PO 04/08 1401 2221 Metoprolol Tartrate 6.25 MG BID 04/08 2200 DC PO Metoprolol Tartrate 12.5 MG BID 04/08 1401 DC PO Nitroglycerin 0.4 MG ONCE PRN 03/29 0815 AC SL Oxymetazoline HCl 2 SPRAY BID PRN 03/30 0215 AC PENELOPE Polyethylene Glycol 17 GM AT BEDTIME 03/29 2200 AC 04/08 PO 2221 Tiotropium [place] 1 PUF DAILY 03/29 1000 AC 04/08 INH 1055 Review of Systems Review of Systems: Limited due to mental status Review of Systems Constitutional: Reports: malaise, weakness. Cardiovascular: Denies: chest pain. Respiratory: Denies: short of breath. GI: Denies: abdominal pain. Genitourinary: Denies: dysuria. Musculoskeletal: Denies: back pain. 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 EENT: NONE Cardiovascular: aortic aneurysm, CAD, hypertension, hyperlipidemia Respiratory: emphysema, lung cancer Gastrointestinal: diverticulitis, lower GI bleed Hepatic: NONE Renal: NONE Musculoskeletal: NONE Psychiatric: NONE Endocrine: hypoparathyroidism Blood Disorders: NONE Cancer(s): lung cancer (s/p wedge resection on R) CHIEF ARCHITECT/Reproductive: NONE Other Medical Hx: Colonic polyps s/p polypectomy, hypertension, coronary artery disease s/p inferior wall myocardial infarction, 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 Surgical History Surgical History: AAA repair cardiac cath with stents carotid endarterectomy right wedge resection of lung for lung CA Psychosocial History Where Do You Live? Home Who Do You Live With? child, self Services at Home: Oxygen Primary Language: Slovak Smoking Status: Former Smoker (quit at time of MT) ETOH Use: denies use Illicit Drug Use: denies illicit drug use Living Will? no Functional Ability ADLs Independent: dressing, eating, toileting, bathing. Ambulation: independent, cane, walker IADLs Independent: shopping, housework, finances, food prep, telephone, transportation , medication admin. Exam & Diagnostic Data Vital Signs and I&O Vital Signs Date Time Temp Pulse Resp B/P Pulse O2 O2 Flow FiO2 Ox Delivery Rate 04/09 0800 98.1 97 20 96/58 99 Nasal 2.0L Cannula 04/09 0000 94 Nasal 2.0L Cannula 04/08 2348 98.7 71 26 90/60 94 Nasal 2.0L Cannula 04/08 2220 71 90/60 04/08 1700 98.4 103 19 91/68 93 Nasal 2.0L Cannula 04/08 1045 76 110/74 Intake & Output 04/09 1600 04/09 0800 04/09 0000 Intake Total 100 100 Output Total 200 Balance -100 100 Intake, Oral 100 100 Output, Urine 200 Physical Exam General Appearance: comfortable, lethargic Head: atraumatic Eyes: Bilateral: PERRL. Respiratory: chest non-tender, quiet respiration Cardiovascular: tachycardia Gastrointestinal: normal bowel sounds, soft, non-tender Extremities: no edema Neurologic/Psych: oriented x 3 Skin: intact, normal color Lymphatic: no anterior cervical rich Last 48 Hours of Lab Results: Laboratory Tests 04/08 0849 Chemistry Magnesium (1.6 - 2.3 mg/dL) 1.5 L Total Bilirubin (0.2 - 1.3 mg/dL) 0.5 Direct Bilirubin (< 0.4 mg/dL) 0.3 AST (14 - 36 U/L) 25 ALT (9 - 52 U/L) 36 Alkaline Phosphatase (<127 U/L) 74 Total Protein (6.3 - 8.2 g/dL) 5.0 L Albumin (3.5 - 5.0 g/dL) 2.5 L Toxicology Valproic Acid (50 - 120 ug/mL) 66.6 Imaging/Other Studies: MRI brain 03/30/2016: Findings consistent with response to treatment. Specifically there has been substantial reduction of enhancement and there has been a reduction of perilesional vasogenic edema associated with the left frontal lobe metastasis. There is no new mass or enhancement. CT head 04/08/2016: Stable findings relative to 04/05/2016 including a partially calcified mass in the high left frontal lobe with surrounding hypoattenuation compatible with a treated metastatic lesion from the patient's lung cancer. No evolving infarct or evidence of intracranial hemorrhage. Inflammatory disease within the right-sided paranasal sinuses, partially visualized. Assessment/Plan Assessment: Ms. Shi is a 80-year-old female with metastatic NSCLC on chemotherapy with carboplatin/gemcitabine/Avastatin who presents with dizziness, weakness, and vision changes. Her hospital course has been complicated by seizure activities, NSTEMI, and deconditioning. MRI of brain demonstrated improving disease. She is being follow by neurology. Cardiology is following patient for her NSTEMI. Oncology is being consulted to help evaluated other options for brain disease and deconditioning. She is currently on dexamethasone for edema of brain metastasis. Edema seem to be improving along with the lesion itself. She continues to have seizure activity with twitching of the right arm and face. Neurology is following patient. She seem to have gotten radiation to the brain already. If she has not received whole brain radiation, it can be a consideration. If she has received radiation, options can be to increase dexamethasone to a higher dose if needed. This is unlikely to help as her edema seem to be improving. With her failure to thrive, this may be in part due to chemotherapy effect. Appetite stimulant can be used. A trial of dronabinol can be used. She should be monitored for fatigue and lethargy with this as it can cause patient to be sedated. Steroid can also help with her appetite. She should follow up with her oncologist for continuation of therapy. Recommendations: 1. Consider increasing dexamethasone dosing for brain metastasis and appetite 2. Consider Dronabinol 2.5 mg daily for appetite stimulant, watch for side effects of sedation 3. Follow up with neurology on seizure management 4. Follow up with Dr. Mcduffie Problem List: 1. Lung cancer 2. Brain metastasis 3. Seizure Other Findings/Comments: Please call [phone] with any questions or concerns. Consult Acknowledgment - Thank you for your consult request.
[2016-04-09 16:00] VITALS: BP 98/60
--- NOTE | 2016-04-09 17:51 | PN- Neurology ---
Subjective Subjective: Still having breakthrough what seem like short simple partial seizures on the right side. Very lethargic. Can speak and respond during the seizure. Review of Systems: no change Objective Vital Signs and I&Os Vital Signs Date Time Temp Pulse Resp B/P Pulse O2 O2 Flow FiO2 Ox Delivery Rate 04/09 1625 Nasal 2.0L Cannula 04/09 1600 98.2 106 20 98/60 94 Nasal 2.0L Cannula 04/09 0800 98.1 97 20 96/58 99 Nasal 2.0L Cannula 04/09 0000 94 Nasal 2.0L Cannula 04/08 2348 98.7 71 26 90/60 94 Nasal 2.0L Cannula 04/08 2220 71 90/60 Intake & Output 04/09 1600 04/09 0800 04/09 0000 04/08 1600 04/08 0800 04/08 0000 Intake Total 100 100 100 680 Output Total 200 300 Balance -100 100 -200 680 Intake, Oral 100 100 100 680 Number 1 Bowel Movements Output, Urine 200 300 Physical Exam: Hypersomnolent but conversant, reports having a seizure - right hand and mouth rhythmically jerking at a slow pace. At times left hand also rhythmically jerking. EOMI, AMANDA. Face symmetric. Current Medications: Current Medications Sig/Kong Start time Last Medication Dose Route Stop Time Status Admin Acetaminophen 650 MG Q6P PRN 03/29 0845 AC PO Aspirin 162 MG DAILY 04/09 1000 AC 04/09 PO 1148 Atorvastatin Calcium 40 MG QPM 03/29 2200 AC 04/08 PO 2220 Clopidogrel Bisulfate 75 MG DAILY 03/30 1000 AC 04/09 PO 1151 Dexamethasone 1 MG 1000 04/08 1000 AC 04/09 PO 1149 Dexamethasone 0.5 MG 04/07 2200 AC 04/08 PO 2220 Divalproex Sodium 1,000 MG BID 04/07 2200 AC 04/09 PO 1149 Docusate Sodium 100 MG BID 03/29 1000 AC 04/09 PO 1149 Dronabinol 2.5 MG BID 04/09 1000 AC 04/09 PO 1151 Dronabinol 2.5 MG AT BEDTIME 04/08 2200 DC 04/08 PO 2221 Heparin Sodium 100 UNIT ONCE PRN 03/31 0700 AC (Porcine) IV Levetiracetam 1,000 MG DAILY 04/02 1000 AC 04/09 PO 1154 Levetiracetam 1,500 MG QPM 04/01 2200 AC 04/08 PO 2219 Levothyroxine Sodium 0.1 MG DAILY AC 03/29 0823 AC 04/09 PO 0636 Lidocaine 1 ISIS DAILY PRN 03/30 2100 AC TOP Metoprolol Tartrate 6.25 MG BID 04/08 2200 DC PO Nitroglycerin 0.4 MG ONCE PRN 03/29 0815 AC SL Oxymetazoline HCl 2 SPRAY BID PRN 03/30 0215 AC PENELOPE Polyethylene Glycol 17 GM AT BEDTIME 03/29 2199 AC 04/08 PO 2221 Tiotropium [place] 1 PUF DAILY 03/29 1000 AC 04/09 INH 1153 Results Last 24 Hours of Lab Results: Depakote level TROUGH 66 AST/ALT wnl Recent Imaging Studies: IMPRESSION: Stable findings relative to 04/05/2016 including a partially calcified mass in the high left frontal lobe with surrounding hypoattenuation compatible with a treated metastatic lesion from the patient's lung cancer. No evolving infarct or evidence of intracranial hemorrhage. EEG - slow but no epileptiform activity. Assessment/Plan Assessment: 80 year old woman with left frontal mets s/p treatment, who has been treated with different AEDs for breakthrough simple seizures. Was managed at [facility] on Keppra monotherapy initially, Vimpat later added. Follows in our office with Dr. Dasilva was doing well on these 2 meds until early February of this year at which time she had breakthrough partial motor events prompting increase of Keppra from 750 mg twice a day to 1000 mg twice a day. Had additional rake through events in late February, at which point Vimpat was increased from 100 mg twice a day to 100 mg in the a.m. 200 mg in the p.m., with a goal dose of 200 mg twice a day. However, after titrating up to 100 mg a.m. 200 mg p.m., she developed dizziness and diplopia, prompting her current hospitalization here at [facility]. Since then we had switched her to Keppra 1000mg in AM and 1500mg in PM and Depakote ER now at 1000mg q12h (level 66). Very lethargic and still with breakthrough simple seizures. Plan: 1. Repeat EEG tomorrow. 2. Increase Depakote to 1000mg in AM and 1500mg in PM 3. Repeat trough level tomorrow morning before morning dose. 4. Switch Plavix to ASA due to potential interactions with Depakote (ask cards if OK?) 5.Would stay away from Phenytoin due to recent [place]. 6.Would avoid Topamax/Zonergran due to hypersomnolence. 7. If Depakote increase not sufficient to control seizures, would next add Oxcarbazepine (Trileptal) 300 bid. YC
[2016-04-09] MEDS ORDERED: DEPAKOTE ER500 M1 PO (19:34)
[2016-04-09] MEDS ORDERED: KEPPRA750 M1 PO (19:34)
[2016-04-09] MEDS ORDERED: DRONABINOL2.5 M1 PO (19:34)
[2016-04-09] MEDS ORDERED: KEPPRA500 M1 PO (19:34)
[2016-04-09 23:50] VITALS: BP 108/68
--- NOTE | 2016-04-10 06:53 | PN- Housestaff ---
BECKY MENDOZA,SHRAVAN 04/10/16 0653: Subjective Follow-up For: seizure Subjective: pt seen this morning, she appeared more lethargic than previous mornings, however opened eyes to command and responded to questions appropriately. she reports no seizure episodes overnight. will get eeg today as per neuro, and meds change as in A&P. Review of Systems Constitutional: Denies: chills, fever. Cardiovascular: Denies: chest pain, palpitations. Respiratory: Denies: cough, short of breath. Gastrointestinal: Denies: abdominal pain. Objective Last 24 Hrs of Vital Signs/I&O Vital Signs Date Time Temp Pulse Resp B/P Pulse O2 O2 Flow FiO2 Ox Delivery Rate 04/10 0752 Nasal 2.0L Cannula 04/10 0000 99 Nasal 2.0L Cannula 04/09 2350 98.7 72 26 108/68 99 Nasal 2.0L Cannula 04/09 1625 Nasal 2.0L Cannula 04/09 1600 98.2 106 20 98/60 94 Nasal 2.0L Cannula Intake & Output 04/10 1600 04/10 0800 04/10 0000 Intake Total 50 50 Output Total 100 Balance -50 50 Intake, Oral 50 50 Number 0 Bowel Movements Output, Urine 100 Physical Exam General Appearance: Oriented X3, Cooperative, lethargic Skin: No Significant Lesion HEENT: Atraumatic Cardiovascular: Regular Rate, Normal S1, Normal S2, No Murmurs, Gallops, Rubs Lungs: Clear to Auscultation, Normal Air Movement Abdomen: Normal Bowel Sounds, Soft, No Tenderness Neurological: intermittently aphasic Current Medications: Current Medications Sig/Kong Start time Last Medication Dose Route Stop Time Status Admin Acetaminophen 650 MG Q6P PRN 03/29 0845 AC PO Aspirin 162 MG DAILY 04/09 1000 AC 04/09 PO 1148 Atorvastatin Calcium 40 MG QPM 03/29 2200 AC 04/09 PO 2355 Clopidogrel Bisulfate 75 MG DAILY 03/30 1000 AC 04/09 PO 1151 Dexamethasone 2 MG 1000 04/10 1000 DC PO Dexamethasone 2 MG BID 04/10 1000 AC PO Dexamethasone 1 MG 1000 04/08 1000 DC 04/09 PO 1149 Dexamethasone 0.5 MG 04/07 2200 DC 04/09 PO 2355 Divalproex Sodium 1,500 MG 04/10 2200 AC PO Divalproex Sodium 1,000 MG DAILY 04/10 1000 AC PO Divalproex Sodium 1,000 MG BID 04/07 2200 DC 04/09 PO 1149 Docusate Sodium 100 MG BID 03/29 1000 AC 04/09 PO 2355 Dronabinol 2.5 MG BID 04/09 1000 AC 04/09 PO 2355 Dronabinol 2.5 MG AT BEDTIME 04/08 2200 DC 04/08 PO 2221 Heparin Sodium 100 UNIT ONCE PRN 03/31 0700 AC (Porcine) IV Levetiracetam 1,500 MG QPM 04/09 2200 AC 04/09 PO 2355 Levetiracetam 1,000 MG DAILY 04/02 1000 AC 04/09 PO 1154 Levetiracetam 1,500 MG QPM 04/01 2200 DC 04/08 PO 2219 Levothyroxine Sodium 0.1 MG DAILY AC 03/29 0823 AC 04/10 PO 0606 Lidocaine 1 ISIS DAILY PRN 03/30 2100 AC TOP Metoprolol Tartrate 6.25 MG BID 04/08 220 DC PO Nitroglycerin 0.4 MG ONCE PRN 03/29 0815 AC SL Oxymetazoline HCl 2 SPRAY BID PRN 03/30 0215 AC PENELOPE Polyethylene Glycol 17 GM AT BEDTIME 03/29 2200 AC 04/09 PO 2355 Tiotropium [place] 1 PUF DAILY 03/29 1000 AC 04/09 INH 1153 Last 24 Hrs of Lab/Pierre Results Last 24 Hrs of Labs/Mics: Laboratory Tests 04/10/16 0552: Cortisol AM Sample 7.0 Assessment/Plan Assessment: This is a 80-year-old female with past medical history of 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 Troponins elevations are likely related to demand ischemia. # Lung cancer with mets to left frontal lobe, with twitches vs focal seizures - Patient was found to be having altered mental status upon admission, but in setting of lung cancer with metastasis to brain. MRI showed decrease in size of brain metastasis lesion, neurology has recommended to increase the dose of Keppra but hold off of Vimpat for now and to have patient follow-up appointment discharge. - On 04/05, patient had episodes of right arm and facial twitching, Depakote 500 mg twice a day was added to her current regimen. - EEG normal - LFt and valproic level on 04/08 WNL * Follow up neurology input * Continue dexamethasone (home dose 1 mg in am, 0.5 mg in pm) --> increased to 2 mg BID on 04/10 * Continue increased dose of keppra: 1000 in am, 1500 in pm * Continue to hold vimpat * Depakote 500 mg BID started on 04/06, increased to 1000 bid on 04/07 pm --> increased to 1000 in am and 1500 in PM on 04/10. If continues to have seizure, add oxcarbazepine 300 bid. Dont add phenytoin due to recent [place]. Avoid topamax and zenergran due to hypersomnolence. * Follow repeat EEG 04/10 * Follow valproic trough 04/10 * Ask cardio if OK to DC plavix due to potential interaction with depakote (inc risk of bleeding). plavix stopped 04/10 * PT recommends STR, family now agreeable. * Oncology consult with Dr. Marylin Inman # Low blood pressure in the settings of low PO intake, lethargy possibly due to overmedication? failure to thrive? * Appreciate nutrition consult * Consider IV fluids if BP worsens * Dronabinol started 2.5 mg at bedtime --> changed to bid # Demand ischemia resolved - Troponin 0.17>>0.47>>0.33 no new EKG changes - Patient was started on IV heparin(stopped 03/31/16), aspirin, Plavix, atorvastatin, nitroglycerin paste * Oxygen supplementation to keep oxygen saturation above 90. Home O2 2L * Metoprolol and lisinopril started this admission but has been discontinued due to low blood pressure. Lopressor 6.25 bid restarted 04/08, but she did not receive as BP was low. Lopressor now discontinued * Cardiology input appreciated, will follow-up with recommendation * Discontinue tele monitor * Nitropaste discontinued # Hypomagnesiumia - Mag 1.5 * Replete with mag ox # Epistaxis - 03/30/16 patient had an episode of epistaxis in the setting of IV heparin for NSTEMI, H&H low but stable s/p 1PRBC transfusion on 04/03. - Nasal packing removed on 2/13/16, no further episode , h/h stable * Keflex discontinued after 9 days # Leg edema * lasix discontinued for low blood pressure # History of COPD * TRC neb * Continue Spiriva 1 puff daily Diet: Heart Healthy DVT ppx: alps (pharm dc'd due to epistaxis and thrombocytopenia) CODE: DNR/DNI Labs: none (maybe mag for hypomag) Problem List: 1. Seizure Pain Ratin Pain Location: none Pain Goal: Remain pain free Pain Plan: none Tomorrow's Labs & Rationales: none DVT/Prophylaxis: mechanical, pharmacological Consulting Request: Consulting Specialty: Neurology NATHALIA TAYLOR MD 04/10/16 1231: Attending MD Review Statement Attending Statement Attending MD Statement: examined this patient, discuss w/resident/PA/RADIUS GRINDER, agreed w/resident/PA/RADIUS GRINDER, reviewed EMR data (avail), discussed with nursing, reviewed images, amended to note Attending Assessment/Plan: Patient seen and examined. Very lethargic. Poor oral intake. No seizure episode reported by nursing staff overnight or so far today. She is very sleepy but arousable. Denies pain at present. I did have an extensive conversation with the family yesterday. They would like to proceed with conservative management for now. Will attempt to transition patient to [facility] facility with palliative care only. If her condition continues to deteriorate however she will be converted to full hospice care. Admitted in agreement with this plan. Failure to thrive is most likely secondary to underlying malignancies particularly with metastatic disease. We have increased her prednisone dose and not attempt to increase appetite. Neurology follow-up for recommendations regarding her seizure medications appreciated. We will refer discontinuation of her antiplatelet therapy to her fluorescent lamp replacer. While it does protect her from future cardiac events, she does have the risk of increased bleeding with the medication.
[2016-04-10 08:18] VITALS: BP 126/65
--- NOTE | 2016-04-10 09:39 | PN- Cardiology ---
Subjective Subjective: * Nirmala is awake but lethargic and not very interactive. She does not verbalize any complaints. * Patient is still not eating much. Objective Vital Signs and I&Os Vital Signs Date Time Temp Pulse Resp B/P Pulse O2 O2 Flow FiO2 Ox Delivery Rate 04/10 0818 98.1 60 17 126/65 96 Nasal 2.0L Cannula 04/10 0752 Nasal 2.0L Cannula 04/10 0000 99 Nasal 2.0L Cannula 04/09 2350 98.7 72 26 108/68 99 Nasal 2.0L Cannula 04/09 1625 Nasal 2.0L Cannula 04/09 1600 98.2 106 20 98/60 94 Nasal 2.0L Cannula Intake & Output 04/10 1600 04/10 0800 04/10 0000 04/09 1600 04/09 0800 04/09 0000 Intake Total 50 50 400 100 100 Output Total 100 200 Balance -50 50 400 -100 100 Intake, Oral 50 50 400 100 100 Number 0 Bowel Movements Output, Urine 100 200 Physical Exam: General: WD/ WN female in NAD; lethargic but awake and oriented x 3 Neck: no JVD, no carotid bruit Heart: RRR w/o murmur Lungs: no crackles or wheezing Extemities: no edema Assessment/Plan Assessment/Plan * This patient is hemodynamically stable without cardiac symptomatology. Her blood pressure and heart rate are generally good. Continue her aspirin at 162mg daily and Lipitor. It is okay to stop Plavix if there is concern regarding intracranial bleeding on the combination of Plavix and Valproic acid. Continue telemetry? Not applicable
[2016-04-10] MEDS ORDERED: DEXAMETHASONE1 M1 PO (13:05)
[2016-04-10] MEDS ORDERED: DEPAKOTE ER500 M1 PO (13:06)
--- NOTE | 2016-04-10 16:10 | ELECTROENCEPHALOGRAM REPORT ---
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: [employer] EEG Number: [id number] Test Utilizes: 21 electrode system Pertinent Hx/Physical/Neuro Findings/Clin Diagnosis: seizure Inpatient Medications: Current Medications Sig/Kong Start time Last Medication Dose Route Stop Time Status Admin Acetaminophen 650 MG Q6P PRN 03/29 0845 AC PO Aspirin 162 MG DAILY 04/09 1000 AC 04/09 PO 1148 Atorvastatin Calcium 40 MG QPM 03/29 2200 AC 04/09 PO 2355 Clopidogrel Bisulfate 75 MG DAILY 03/30 1000 DC 04/09 PO 1151 Dexamethasone 2 MG 1000 04/10 1000 DC PO Dexamethasone 2 MG BID 04/10 1000 AC PO Dexamethasone 1 MG 1000 04/08 1000 DC 04/09 PO 1149 Dexamethasone 0.5 MG 2200 04/07 2200 DC 04/09 PO 2355 Divalproex Sodium 1,500 MG 0 04/10 2200 AC PO Divalproex Sodium 1,000 MG DAILY 04/10 1000 AC PO Divalproex Sodium 1,000 MG BID 04/07 2200 DC 04/09 PO 1149 Docusate Sodium 100 MG BID 03/29 1000 AC 04/09 PO 2355 Dronabinol 2.5 MG BID 04/09 1000 AC 04/09 PO 2355 Heparin Sodium 100 UNIT ONCE PRN 03/31 0700 AC (Porcine) IV Levetiracetam 1,500 MG QPM 04/09 2200 AC 04/09 PO 2355 Levetiracetam 1,000 MG DAILY 04/02 1000 AC 04/09 PO 1154 Levetiracetam 1,500 MG QPM 04/01 2200 DC 04/08 PO 2219 Levothyroxine Sodium 0.1 MG DAILY AC 03/29 0823 AC 04/10 PO 0606 Lidocaine 1 ISIS DAILY PRN 03/30 2100 AC TOP Nitroglycerin 0.4 MG ONCE PRN 03/29 0815 AC SL Oxymetazoline HCl 2 SPRAY BID PRN 03/30 0215 AC PENELOPE Polyethylene Glycol 17 GM AT BEDTIME 03/29 2200 AC 04/09 PO 2355 Tiotropium [place] 1 PUF DAILY 03/29 1000 AC 04/09 INH 1153 Interpretation: Backrround id 5-6 cps activity Muscle artifact present frontally and temporal head regions No focal or epileptiform activity Photic stim not performed Impression: Abnormal EEG due to background slowing indicative of diffuse cerebral dysfunction.
[2016-04-10 16:12] VITALS: BP 93/59
[2016-04-10 16:31] VITALS: BP 93/59
== END 2016-04-10 16:00 | DRG 280 ==
LOC: ENRESERVTM → ENRESERVDT → ERH 01:52 → ENPENDDIS 04:39 → ERHI 04:39 → 1NO 04:39 → 2NB 04-06 20:58 → 1NO 04-06 23:46
PROVIDERS: Emergency Medicine; Internal Medicine; Student in an Organized Health Care Education/Training Program; ADMIT Student in an Organized Health Care Education/Training Program
PROC: 2Y41X5Z Packing of Nasal Region using Packing Material (ICD-10-PCS; principal; 2016-03-29)
PROC: 30233N1 Transfusion of Nonautologous Red Blood Cells into Peripheral Vein, Percutaneous Approach (ICD-10-PCS; 2016-04-03)
DX: I21.4 Non-ST elevation (NSTEMI) myocardial infarction (principal); G93.6 Cerebral edema; C79.31 Secondary malignant neoplasm of brain; D69.59 Other secondary thrombocytopenia; R56.9 Unspecified convulsions; D62 Acute posthemorrhagic anemia; I25.10 Atherosclerotic heart disease of native coronary artery without angina pectoris; E20.9 Hypoparathyroidism, unspecified; Z87.891 Personal history of nicotine dependence; R04.0 Epistaxis; T45.1X5A Adverse effect of antineoplastic and immunosuppressive drugs, initial encounter; R62.7 Adult failure to thrive; Z85.118 Personal history of other malignant neoplasm of bronchus and lung; E78.5 Hyperlipidemia, unspecified
CPT/HCPCS: 1NP; 1NSP; 70552; 36415; 70553; 82436; 83010; 86920; 93005; 93010; 93306; 95816; 97110-GO; 97116-GO; 97161-GP; 97530-GO; A9579; J1642; J1644; J1650; J2060; J2920; J3490; P9016